=== PATIENT | female | born 1945 | race Caucasian/White ===

== ENCOUNTER → 2016-03-15 | Outpatient (CLI) | payer BC ==
[~2016-03-15] MED LIST: ALEN70TA2 PO; INSUINJ4 SC; INSUINJ8 SQ; LISI5TAB3 PO; LPT/40 PO; METF1000 PO; NAPR-1169 PO; OMEG10007 PO; PARO1TAB27 PO
[2016-03-15 12:53] LABS: ALT/SGPT 18 U/L (12-78); BLOOD UREA NITROGEN 16 mg/dl (7-18); BUN/CREATININE RATIO 15.7 (10-20); CARBON DIOXIDE 27 mmol/L (21-32); CHLORIDE 107 mmol/L (98-107); CHOLESTEROL 227 mg/dl (0-200); GLUCOSE 56 mg/dl (70-99); POTASSIUM 4.1 mmol/L (3.5-5.1); SODIUM 141 mmol/L (136-145); TRIGLYCERIDES 179 mg/dl (0-150); VERY LOW DENSITY LIPOPROT CALC 36 mg/dl
[2016-03-15 12:56] LABS: ALKALINE PHOSPHATASE 108 U/L (45-117); AST/SGOT 27 U/L (15-37); HDL CHOLESTEROL 45 mg/dl; LDL CHOLESTEROL CALCULATED 146 mg/dl
[2016-03-15 13:21] LABS: ESTIMATED AVERAGE GLUCOSE 174 mg/dl; HA1C FLAG Normal (Normal)
== END | disposition home or self-care (01) ==
LOC: C.LABPVFM 07:26
PROVIDERS: ATTEND Family Medicine
DX: E78.5 Hyperlipidemia, unspecified (principal); E11.40 Type 2 diabetes mellitus with diabetic neuropathy, unspecified; E11.65 Type 2 diabetes mellitus with hyperglycemia

== ENCOUNTER → 2016-07-06 | Outpatient (CLI) | payer BC ==
[2016-07-06 12:35] LABS: AST/SGOT 27 U/L (15-37); BLOOD UREA NITROGEN 19 mg/dl (7-18); BUN/CREATININE RATIO 19.7 (10-20); CALCIUM 9.3 mg/dl (8.5-10.1); CARBON DIOXIDE 29 mmol/L (21-32); CHLORIDE 106 mmol/L (98-107); CREATININE 0.99 mg/dl (0.60-1.20); GLUCOSE 83 mg/dl (70-99); POTASSIUM 4.4 mmol/L (3.5-5.1); SODIUM 140 mmol/L (136-145)
[2016-07-06 12:39] LABS: ALB/GLOB RATIO 1.1 (0.9-2); ALKALINE PHOSPHATASE 102 U/L (45-117); ALT/SGPT 19 U/L (12-78)
[2016-07-06 12:41] LABS: ESTIMATED AVERAGE GLUCOSE 180 mg/dl; HA1C FLAG Normal (Normal)
== END | disposition home or self-care (01) ==
LOC: C.LABPVFM 07:46
PROVIDERS: ATTEND Family Medicine
DX: F32.9 Major depressive disorder, single episode, unspecified (principal); E78.5 Hyperlipidemia, unspecified; I10 Essential (primary) hypertension; E11.40 Type 2 diabetes mellitus with diabetic neuropathy, unspecified

== ENCOUNTER → 2017-01-16 | Outpatient (CLI) | payer BC ==
[2017-01-16 13:20] LABS: AST/SGOT 27 U/L (15-37); BLOOD UREA NITROGEN 17 mg/dl (7-18); BUN/CREATININE RATIO 15.7 (10-20); CARBON DIOXIDE 28 mmol/L (21-32); CHLORIDE 105 mmol/L (98-107); GLUCOSE 103 mg/dl (70-99); POTASSIUM 4.4 mmol/L (3.5-5.1); SODIUM 139 mmol/L (136-145)
[2017-01-16 13:24] LABS: ALB/GLOB RATIO 0.9 (0.9-2); ALKALINE PHOSPHATASE 111 U/L (45-117); ALT/SGPT 21 U/L (12-78); CHOLESTEROL 242 mg/dl (0-200); CHOLESTEROL/HDL RATIO 6.1; HDL CHOLESTEROL 40 mg/dl; LDL CHOLESTEROL CALCULATED 158 mg/dl; TRIGLYCERIDES 220 mg/dl (0-150); VERY LOW DENSITY LIPOPROT CALC 44 mg/dl
[2017-01-16 13:53] LABS: ESTIMATED AVERAGE GLUCOSE 189 mg/dl; HA1C FLAG Normal (Normal)
== END | disposition home or self-care (01) ==
LOC: C.LABPVFM 08:31
PROVIDERS: ATTEND Family Medicine
DX: E78.5 Hyperlipidemia, unspecified (principal); I10 Essential (primary) hypertension; M81.0 Age-related osteoporosis without current pathological fracture; E11.65 Type 2 diabetes mellitus with hyperglycemia; Z12.11 Encounter for screening for malignant neoplasm of colon

== ENCOUNTER → 2017-01-23 | Outpatient (CLI) | payer BC ==
--- NOTE | 2017-01-24 07:43 | MAMMOGRAPHY REPORT ---
BILATERAL DIGITAL SCREENING MAMMOGRAM WITH CAD: 01/23/2017 CLINICAL HISTORY: Routine screening. Patient has no complaints. TECHNIQUE: Bilateral CC and MLO views were obtained. Current study was also evaluated with a Compute r Aided Detection (CAD) system. COMPARISON: Comparison is made to exams dated: 01/21/2016 mammogram, 03/07/2014 mammogram, 08/15/2012 ultrasound, 08/15/2012 mammogram, 12/07/2010 mammogram - [facility], and 07/02/2008. BREAST COMPOSITION: There are scattered areas of fibroglandular density in both breasts. FINDINGS: There are rim calcifications in the right breast. No suspicious mass, architectural disto rtion or cluster of microcalcifications is seen. IMPRESSION: ACR BI-RADS CATEGORY 2: BENIGN There is no mammographic evidence of malignancy. A 1 year screening mammogram is recommended. The pa tient will receive written notification of the results. Approximately 10% of breast cancers are not detected with mammography. A negative mammographic report should not delay biopsy if a clinically suggestive mass is present. Abbi Narayan M.D. ay/:01/23/2017 15:35:42 Converting Operator: Lety CHOUDHARY,R, M, [facility] letter sent: Normal 1/2 BI-RADS Code: ACR BI-RADS Category 2: Benign
== END | disposition home or self-care (01) ==
LOC: C.MAMM 10:09
PROVIDERS: ATTEND Family Medicine
DX: Z12.31 Encounter for screening mammogram for malignant neoplasm of breast (principal)

== ENCOUNTER → 2017-03-20 | Outpatient (CLI) | payer BC | END | disposition home or self-care (01) | LOC: C.MAMM 10:01 | PROVIDERS: ATTEND Nurse Practitioner | DX: M85.89 Other specified disorders of bone density and structure, multiple sites (principal) ==

== ENCOUNTER → 2017-07-17 | Outpatient (CLI) | payer BC ==
[2017-07-17 13:38] LABS: BLOOD UREA NITROGEN 17 mg/dl (7-18); CALCIUM 9.1 mg/dl (8.5-10.1); CARBON DIOXIDE 31 mmol/L (21-32); CHOLESTEROL 122 mg/dl (0-200); CREATININE 1.09 mg/dl (0.60-1.20); GLUCOSE 61 mg/dl (70-99); POTASSIUM 4.1 mmol/L (3.5-5.1); SODIUM 141 mmol/L (136-145)
[2017-07-17 13:41] LABS: LDL CHOLESTEROL CALCULATED 50 mg/dl
[2017-07-17 13:52] LABS: HEMOGLOBIN A1C 8.3 % (4.5-5.6)
== END | disposition home or self-care (01) ==
LOC: C.LABPVFM 08:25
PROVIDERS: ATTEND Nurse Practitioner
DX: E78.5 Hyperlipidemia, unspecified (principal); M81.0 Age-related osteoporosis without current pathological fracture; I10 Essential (primary) hypertension; E11.65 Type 2 diabetes mellitus with hyperglycemia

== ENCOUNTER 2019-05-02 15:11 | Inpatient (IN) ==
[2019-05-02] MEDS ORDERED: CEFEPIME 2,000 MG/20 ML VIAL IV STA (15:42)
[2019-05-02] MEDS ORDERED: SODIUM CHLORIDE 0.9% 1000ML 1,000 ML IV ONE (15:42)
[2019-05-02] MEDS ORDERED: ACETAMINOPHEN 500 MG TAB PO STA (16:02)
--- NOTE | 2019-05-02 16:02 | XRay Report ---
XR chest 1V portable CLINICAL HISTORY: SEPSIS dyspnea COMPARISON STUDY: 05/01/2019 FINDINGS: The bones soft tissues and hemidiaphragms are normal. The cardiomediastinal silhouette is n ormal. The lungs are clear. The pulmonary vasculature is normal. IMPRESSION: Negative chest. ACT 112: Negative or not required by law. The above report was generated using voice recognition software. It may contain grammatical, syntax or spelling errors. Electronically signed by: Jeffery Santos M.D. 05/02/2019 4:01 PM
[2019-05-02 16:26] LABS: Hematocrit (blood only) 28.9 % (37-47); Hemoglobin 9.1 g/dL (12.0-16.0); Mean Corpuscular Hemoglobin 26.3 pg (25-34); Mean Corpuscular Hgb Conc 31.5 g/dL (32-36); Mean Corpuscular Volume 83.5 fL (80-100); Mean Platelet Volume 9.9 fL (7.4-10.4); Platelet Count 200 K/uL (130-400); RDW Coefficient of Variation 20.6 % (11.5-14.5); RDW Standard Deviation 62.9 fL (36.4-46.3); Red Blood Count 3.46 M/uL (4.2-5.4); White Blood Count 9.52 K/uL (4.8-10.8)
[2019-05-02 16:37] LABS: INR 1.1 (0.9-1.1); Partial Thromboplastin Time 25.8 Seconds (21.0-31.0)
[2019-05-02 16:51] LABS: Alanine Aminotransferase 13 U/L (12-78); Albumin Level 3.3 gm/dl (3.4-5.0); Aspartate Aminotransferase 45 U/L (15-37); BUN Creatinine Ratio 12.1 (10-20); Blood Urea Nitrogen 18 mg/dl (7-18); Calcium 8.9 mg/dl (8.5-10.1); Carbon Dioxide 27 mmol/L (21-32); Chloride 103 mmol/L (98-107); Est GFR (African American) 39.4; Glucose 92 mg/dl (70-99); Magnesium 1.9 mg/dl (1.8-2.4); Potassium 3.8 mmol/L (3.5-5.1); Sodium 135 mmol/L (136-145)
[2019-05-02 16:53] LABS: Albumin Globulin Ratio 0.8 (0.9-2); Alkaline Phosphatase 88 U/L (45-117); Bilirubin,Total 0.8 mg/dl (0.2-1); Globulin 4.3 gm/dl (2.5-4.0); Total Protein 7.6 gm/dl (6.4-8.2)
[2019-05-02 16:59] LABS: Eosinophils # (auto) 0.01 K/uL (0-0.5); Eosinophils % (auto) 0.1 %; Immature Granulocytes # (auto) 0.03 K/uL (0.00-0.02); Immature Granulocytes % (auto) 0.3 %; Lymphocytes # (auto) 1.01 K/uL (1.2-3.4); Lymphocytes % (auto) 10.6 %; Monocytes # (auto) 0.88 K/uL (0.11-0.59); Monocytes % (auto) 9.2 %; Neutrophils # (auto) 7.59 K/uL (1.4-6.5); Neutrophils % (auto) 79.8 %; Polychromasia 1+
--- NOTE | 2019-05-02 17:32 | History & Physical Report ---
Date of Service May 02, 2019 Assessment & Plan (1) Gram-negative bacteremia: Admit med surg Blood cultures growing gram negative bacteremia, likely E. coli from UTI, await sensitivities Will treat with ceftriaxone 2g Will give 1 further liter of fluid, given 1L in ED (2) E-coli UTI: E.coli growing in culture CT scan 05/01 showed possible pyelonephritis Treatment as above (3) Depression: Continue home paroxetine (4) Diabetic neuropathy: Continue home gabapentin (5) Dyslipidemia: Continue home statin (6) Hypertension: continue home lisinopril (7) Diabetes: Type II with neuropathy Hold home metformin and dulaglutide Continue home gabapentin Consult glycemic pharmacist (8) CKD (chronic kidney disease), stage III: Avoid nephrotoxins where possible (9) DVT prophylaxis: SCDs History of Present Illness Ms. Barrios presents for gram negative bacteremia. She had visited the ED yesterda y and upon having positive cultures she was recalled to the ED for admission. She has been having lower abdominal pain, dysuria, aches and chills. She denies any flank pain,nausea or vomiting or diarrhea, afebrile, no chest pain or sob. She does a have a cough that is non-productive as she was recently diagnosed and treated for bronchitis. Pmhx: DMII, hld, OA, hypertension Social: , retired adjunct history instructor, non smoker, non drinker Family: fatehr of an [place] in his 60s, mother of cancer Primary Care Provider: SHELTON Perkins Allergies Allergy/AdvReac Type Severity Reaction Status Date / Time aspirin Allergy Mild HIVES Verified 04/15/19 13:29 caffeine Allergy Mild HIVES Verified 04/15/19 13:29 yellow dye Allergy Mild HIVES Verified 04/15/19 13:29 red (food color) Allergy Unknown Verified 04/15/19 13:29 ORANGE DYE Allergy Mild HIVES Uncoded 04/15/19 13:29 Home Medications Home Medications Medication Instructions Recorded Confirmed Type calcium carbonate 600 mg calcium 600 mg PO DAILY #30 tab 08/13/18 05/01/19 Rx (1,500 mg) tablet cholecalciferol (vitamin D3) 50 2,000 units PO BID #30 tab 08/13/18 05/01/19 Rx mcg (2,000 unit) tablet insulin glargine 100 unit/mL See Rx Instructions SQ DAILY #30 ml 08/13/18 05/01/19 Rx subcutaneous solution paroxetine HCl 20 mg tablet 20 mg PO DAILY #30 tab 08/13/18 05/01/19 Rx atorvastatin 80 mg tablet 80 mg PO HS #90 tab 11/13/18 05/01/19 Rx lisinopril 20 mg tablet 20 mg PO DAILY #30 tab 12/03/18 05/01/19 Rx metformin 1,000 mg tablet See Rx Instructions .ROUTE 12/07/18 05/01/19 Rx .COMPLEX #60 tablet blood sugar diagnostic See Rx Instructions .ROUTE 12/25/18 04/15/19 Rx .COMPLEX #100 strip insulin syringe-needle U-100 0.5 See Rx Instructions .ROUTE 02/12/19 04/15/19 Rx mL 31 gauge x 5/16" .COMPLEX #100 unspecified alendronate 70 mg tablet See Rx Instructions .ROUTE 02/28/19 05/01/19 Rx .COMPLEX #4 tablet insulin aspart U-100 100 unit/mL See Rx Instructions .ROUTE 02/28/19 05/01/19 Rx subcutaneous solution .COMPLEX #10 milliliter dulaglutide 0.75 mg/0.5 mL See Rx Instructions .ROUTE 04/08/19 05/01/19 Rx subcutaneous pen injector .COMPLEX #2 milliliter benzonatate 100 mg capsule 100 mg PO TID PRN #20 cap 04/15/19 05/01/19 Rx gabapentin 100 mg capsule See Rx Instructions .ROUTE 04/22/19 05/01/19 Rx .COMPLEX #60 capsule cefdinir 300 mg PO BID 10 Days #20 cap 05/02/19 Rx Past Med/Surg History Medical History (Updated 05/02/19 @ 17:44 by SHELTON Nagel) Bronchitis (Acute) Diabetes (Chronic) Dyslipidemia (Chronic) Hypertension (Chronic) Osteoporosis (Chronic) Surgical History History of appendectomy (Resolved) History of bladder repair surgery (Resolved) History of hysterectomy (Resolved) History of shoulder surgery (Resolved) Family History Father Myocardial infarction Denies family history of Ovarian cancer Prostate cancer Breast cancer Colorectal cancer Social History Preferred Language: Burkinan marital status: Single Current Living Situation: Family current occupational status: retired Feels Safe at Home: Yes Smoking Status: Never smoker Hx Substance Use: No caffeine: Yes Dental Care, Regularly: No Seatbelt Use: always Sunscreen Use: Yes Review of Systems Review of Systems: All systems reviewed & are unremarkable except as noted in HPI & below Physical Exam Physical Exam: General: no distress Eyes: normal inspection, PERLL Respiratory: chest non tender, clear to auscultation, normal breath sounds, no respiratory distress, no accessory muscle use Cardiac: regular rate and rhythm, no rub or gallop, no murmur, no edema, no jvd GI/: active bowel sounds, no abd pain or tenderness, soft, non distended Extremities: normal range of motion, normal strength, non tender Neuro/Psych: alert and oriented x 3, normal mood and affect Skin: normal color, dry Results & Data Vital Signs (Past 12 Hours) Vital Signs Temp Pulse Resp BP Pulse Ox 05/02/19 17:04 72 20 94 05/02/19 17:00 72 20 94 05/02/19 16:45 74 22 94 05/02/19 16:30 79 22 115/80 97 05/02/19 16:25 79 24 98 05/02/19 16:22 76 21 145/75 H 100 05/02/19 15:18 37.7 C H 102 H 18 121/76 92 Code Status & VTE Plan Code Status full code VTE Prophylaxis Plan VTE Prophylaxis will be ordered: Yes PG Care Time/CCT Total # of Minutes Spent Total Time Spent with Patient: Total time spent is greater than 50% in coordination of care (as documented) at patient's floor/unit and/or counseling patient: Coding Level of Care Code 67650 Initial Inpt Care Lvl 3 Diagnoses Gram-negative bacteremia R78.81 E-coli UTI N39.0; B96.20 Depression F32.9 Diabetic neuropathy E11.40 Dyslipidemia E78.5 Hypertension I10 Diabetes E11.9 CKD (chronic kidney disease), stage III N18.3 DVT prophylaxis Z29.9
--- NOTE | 2019-05-02 19:19 | Emergency Department Note ---
Entered by Rogers Gutierrez acting as a scribe for ED Provider Note CHIEF COMPLAINT: Urinary Symptoms HISTORY OF PRESENT ILLNESS: The patient is a 73 year old female who presents to the Emergency Room with complaints of intermittent urinary symptoms starting several days ago. The patient states she has been having pain with urination. She states she has not had a UTI in years. She states she has been having back pain. She notes she was in the ED yesterday and was sent home with antibiotics. She states she was called today and was instructed to go back to the ED to get admitted because she had a blood infection. The patient denies taking Advil or Tylenol. She denies having allergies to any antibiotics. The patient's daughter states the patient had a blood infection years ago and was hospitalized at that time. Pt denies LOC, headache, fevers, chills, diaphoresis, visual changes, neck pain, chest pain, breathing difficulties, nausea, vomiting, abdominal pain, melena, hematochezia, numbness, weakness, lymphadenopathy, rash, or other complaints. REVIEW OF SYSTEMS: See HPI for pertinent positives and negatives. A total of ten systems were reviewed and were otherwise negative. PMHx/PSHx: Diabetes, depression, osteoporosis, dyslipidemia, HTN, hx of appendectomy, hx of bladder repair surgery, hx of hysterectomy, hx of shoulder surgery SOCIAL HISTORY: Patient lives at home. PHYSICAL EXAM: GENERAL: Awake, alert, tired-appearing, in no distress HENT: Normocephalic, atraumatic. Oropharynx unremarkable. EYES: PERRL. Normal conjunctiva. Sclera non-icteric. NECK: Inspection normal. Non-tender. Supple. No nuchal rigidity. FROM. No masses. RESPIRATORY: Clear to auscultation. No wheezes. No rales. Normal respiratory effort. CARDIAC: Borderline tachycardic rate. Normal rhythm. No murmurs. No rubs. Extremities warm and well perfused. Pulses equal. No JVD. GI: Soft, non-distended. No tenderness to palpation. No rebound or guarding. No masses. RECTAL: Deferred. MUSCULOSKELETAL: Atraumatic. Chest examination reveals no tenderness. The back is symmetrical on inspection without obvious abnormality. There is no CVA tenderness to palpation. No joint edema. LOWER EXTREMITIES: Calves are equal size bilaterally and non-tender. No edema. No discoloration. NEURO: Normal sensorium. No sensory or motor deficits noted. SKIN: No rash or jaundice noted. Warm to the touch. EMERGENCY DEPARTMENT COURSE: 1558: Past medical records reviewed. The patient was evaluated in room D9, and a complete history and physical examination were performed. 1612: I discussed the patient's case with Dr. Eva Smiley - [facility] Hospitalist. She will evaluate the patient for further management MEDICAL DECISION MAKING: Prior records/ancillary studies reviewed. He has gram-negative bacteria in the bloodstream as well as a E. coli UTI. Triage Nursing notes reviewed and agree them. Additional history obtained from her treating physician from last night, Dr. Alonzo. We discussed her work-up and treatment. He noted her positive culture results. The patient's history was concerning for fever, bacteremia, and UTI Differential diagnosis: Etiologies such as otitis, pharyngitis, pneumonia, influenza,meningitis, urinary tract infection, sepsis, bacteremia, viral syndrome, as well as others were entertained. Physical examination: As above ER treatment provided: IV cefepime Oral Tylenol IV normal saline On reassessment the patient felt better. Diagnostics interpreted by me: ECG: Sinus rhythm without dysrhythmia. The labs revealed an unremarkable CBC except for anemia which is stable. Chemistry panel unremarkable. New blood cultures pending. Imaging studies: Chest x-ray negative for acute process. Consultation: A consultation was placed with any hospitalist Dr. Smiley. The case was discussed and diagnostics were reviewed. The patient was evaluated in the ER for further treatment. IMPRESSION: Gram negative bacteremia, E. Coli UTI, fever PLAN: Admitted The scribe's documentation has been prepared under my direction and personally reviewed by me in its entirety. I confirm that the note above accurately reflects all work, treatment, procedures, and medical decision making performed by me. Impression & Plan Gram-negative bacteremia, E-coli UTI, Fever Past Med/Surg History Family History Father Myocardial infarction Denies family history of Ovarian cancer Prostate cancer Breast cancer Colorectal cancer Social History Preferred Language: Irish marital status: Single Current Living Situation: Family current occupational status: retired Feels Safe at Home: Yes Smoking Status: Never smoker Hx Substance Use: No caffeine: Yes Dental Care, Regularly: No Seatbelt Use: always Sunscreen Use: Yes Results & Data Vital Signs Vital Signs - 24 hr 05/02/19 15:18 05/02/19 16:22 05/02/19 16:25 Temperature 37.7 C H Temperature Source Oral Pulse Rate 102 H 76 79 Pulse Rate from SpO2 Sensor 78 79 Respiratory Rate 18 21 24 Blood Pressure 121/76 145/75 H Blood Pressure Mean 91 103 Pulse Oximetry 92 100 98 Oxygen Delivery Method Room Air Sepsis Recent Fever Within 48 Hours No Sepsis New/Unexplained Change in Mental Status No Sepsis Action Taken by Nursing No Action Required 05/02/19 16:30 05/02/19 16:45 05/02/19 17:00 Temperature Temperature Source Pulse Rate 79 74 72 Pulse Rate from SpO2 Sensor 79 72 71 Respiratory Rate 22 22 20 Blood Pressure 115/80 Blood Pressure Mean 85 Pulse Oximetry 97 94 94 Oxygen Delivery Method Sepsis Recent Fever Within 48 Hours Sepsis New/Unexplained Change in Mental Status Sepsis Action Taken by Nursing 05/02/19 17:04 05/02/19 17:15 05/02/19 17:30 Temperature Temperature Source Pulse Rate 72 72 72 Pulse Rate from SpO2 Sensor 71 71 Respiratory Rate 20 24 22 Blood Pressure 110/57 L Blood Pressure Mean 74 Pulse Oximetry 94 97 96 Oxygen Delivery Method Room Air Sepsis Recent Fever Within 48 Hours Sepsis New/Unexplained Change in Mental Status Sepsis Action Taken by Nursing 05/02/19 17:45 05/02/19 18:00 05/02/19 18:15 Temperature Temperature Source Pulse Rate 72 70 77 Pulse Rate from SpO2 Sensor 74 69 Respiratory Rate 19 20 23 Blood Pressure 122/67 Blood Pressure Mean 89 Pulse Oximetry 94 95 Oxygen Delivery Method Sepsis Recent Fever Within 48 Hours Sepsis New/Unexplained Change in Mental Status Sepsis Action Taken by Nursing 05/02/19 18:30 05/02/19 18:45 Temperature Temperature Source Pulse Rate 67 68 Pulse Rate from SpO2 Sensor Respiratory Rate 23 26 H Blood Pressure 130/81 Blood Pressure Mean 102 Pulse Oximetry Oxygen Delivery Method Sepsis Recent Fever Within 48 Hours Sepsis New/Unexplained Change in Mental Status Sepsis Action Taken by Half-Way Medications Current Medication List: was personally reviewed by me Laboratory Data Result diagrams: 05/02/19 16:16 05/02/19 16:16 Lab Results 05/02/19 05/02/19 05/02/19 Range/Units 16:16 16:16 16:16 WBC 9.52 (4.8-10.8) K/uL RBC 3.46 L (4.2-5.4) M/uL Hgb 9.1 L (12.0-16.0) g/dL Hct 28.9 L (37-47) % MCV 83.5 (80-100) fL MCH 26.3 (25-34) pg MCHC 31.5 L (32-36) g/dL RDW Std Deviation 62.9 H (36.4-46.3) fL RDW Coeff of Pauly 20.6 H (11.5-14.5) % Plt Count 200 (130-400) K/uL MPV 9.9 (7.4-10.4) fL Immature Gran % (Auto) 0.3 % Neut % (Auto) 79.8 % Lymph % (Auto) 10.6 % Hancock % (Auto) 9.2 % Eos % (Auto) 0.1 % Baso % (Auto) 0.0 % Immature Gran # (Auto) 0.03 H (0.00-0.02) K/uL Neut # (Auto) 7.59 H (1.4-6.5) K/uL Lymph # (Auto) 1.01 L (1.2-3.4) K/uL Hancock # (Auto) 0.88 H (0.11-0.59) K/uL Eos # (Auto) 0.01 (0-0.5) K/uL Baso # (Auto) 0.00 (0-0.2) K/uL Polychromasia 1+ PT 11.0 (9.0-12.0) Seconds INR 1.1 (0.9-1.1) APTT 25.8 (21.0-31.0) Seconds PTT Ratio 1.0 Sodium 135 L (136-145) mmol/L Potassium 3.8 (3.5-5.1) mmol/L Chloride 103 (98-107) mmol/L Carbon Dioxide 27 (21-32) mmol/L Anion Gap 5.0 (3-11) BUN 18 (7-18) mg/dl Creatinine 1.49 H (0.6-1.2) mg/dl Est Cr Clr Drug Dosing Not Reportable Est GFR ( Amer) 39.4 Est GFR (Non-Af Amer) 34.0 BUN/Creatinine Ratio 12.1 (10-20) Glucose 92 (70-99) mg/dl Lactate (0.4-2.0) mmol/L Calcium 8.9 (8.5-10.1) mg/dl Magnesium 1.9 (1.8-2.4) mg/dl Total Bilirubin 0.8 (0.2-1) mg/dl AST 45 H (15-37) U/L ALT 13 (12-78) U/L Alkaline Phosphatase 88 (45-117) U/L Total Protein 7.6 (6.4-8.2) gm/dl Albumin 3.3 L (3.4-5.0) gm/dl Globulin 4.3 H (2.5-4.0) gm/dl Albumin/Globulin Ratio 0.8 L (0.9-2) // Range/Units 16:16 WBC (4.8-10.8) K/uL RBC (4.2-5.4) M/uL Hgb (12.0-16.0) g/dL Hct (37-47) % MCV (80-100) fL MCH (25-34) pg MCHC (32-36) g/dL RDW Std Deviation (36.4-46.3) fL RDW Coeff of Pauly (11.5-14.5) % Plt Count (130-400) K/uL MPV (7.4-10.4) fL Immature Gran % (Auto) % Neut % (Auto) % Lymph % (Auto) % Hancock % (Auto) % Eos % (Auto) % Baso % (Auto) % Immature Gran # (Auto) (0.00-0.02) K/uL Neut # (Auto) (1.4-6.5) K/uL Lymph # (Auto) (1.2-3.4) K/uL Hancock # (Auto) (0.11-0.59) K/uL Eos # (Auto) (0-0.5) K/uL Baso # (Auto) (0-0.2) K/uL Polychromasia PT (9.0-12.0) Seconds INR (0.9-1.1) APTT (21.0-31.0) Seconds PTT Ratio Sodium (136-145) mmol/L Potassium (3.5-5.1) mmol/L Chloride (98-107) mmol/L Carbon Dioxide (21-32) mmol/L Anion Gap (3-11) BUN (7-18) mg/dl Creatinine (0.6-1.2) mg/dl Est Cr Clr Drug Dosing Est GFR ( Amer) Est GFR (Non-Af Amer) BUN/Creatinine Ratio (10-20) Glucose (70-99) mg/dl Lactate 1.8 (0.4-2.0) mmol/L Calcium (8.5-10.1) mg/dl Magnesium (1.8-2.4) mg/dl Total Bilirubin (0.2-1) mg/dl AST (15-37) U/L ALT (12-78) U/L Alkaline Phosphatase (45-117) U/L Total Protein (6.4-8.2) gm/dl Albumin (3.4-5.0) gm/dl Globulin (2.5-4.0) gm/dl Albumin/Globulin Ratio (0.9-2) Administered Medications Discontinued Medications Acetaminophen (Tylenol) 1,000 mg PO NOW STA Stop: 05/02/19 16:03 Last Admin: 05/02/19 16:13 Dose: 1,000 mg Documented by: [id number] Sodium Chloride (Nss 1000ml) 1,000 mls @ 999 mls/hr IV .Q1H1M ONE Stop: 05/02/19 16:42 Last Infusion: 05/02/19 17:14 Dose: 0 mls/hr Documented by: [id number] Admin: 05/02/19 16:13 Dose: 999 mls/hr Documented by: [id number] Cefepime HCl (Maxipime) 2,000 mg in 20 mls @ 5 mls/min IV NOW STA; Protocol Stop: 05/02/19 15:45 Last Admin: 05/02/19 16:13 Dose: 5 mls/min Documented by: [id number] Imaging Data Radiologist's Impression: Radiology results as stated below per my review and the radiologist's interpretation: XR chest 1V portable CLINICAL HISTORY: SEPSIS dyspnea COMPARISON STUDY: 05/01/2019 FINDINGS: The bones soft tissues and hemidiaphragms are normal. The cardiomediastinal silhouette is normal. The lungs are clear. The pulmonary vasculature is normal. IMPRESSION: Negative chest. ACT 112: Negative or not required by law. The above report was generated using voice recognition software. It may contain grammatical, syntax or spelling errors. Electronically signed by: Jeffery Santos M.D. 05/02/2019 4:01 PM ECG Data Attestation: I personally reviewed and interpreted this ECG as follows: Indication: + weakness Rate (beats per minute): 76 Rhythm: normal sinus ECG Intervals/blocks: + Right Bundle branch block and + Normal QRS ECG ST segments: no ST depression and no ST elevation ECG Findings: no PACs and no PVCs Blood Pressure Blood Pressure Findings: Elevated blood pressure Blood Pressure Disposition: further management by hospitalist Discharge Plan Visit Data Chief Complaint: Urinary Symptoms Stated Complaint: UTI, CALLED BACK FROM ER ED Provider: Armand Luna Discharge Problem: Gram-negative bacteremia, E-coli UTI, Fever Patient Disposition: Being Evaluated by Hospitalist Forms Stand Alone Forms: My [employer] Prescriptions Prescriptions: No Action Lantus U-100 Insulin 100 unit/mL solution See Rx Instructions SQ DAILY Qty: 30 RF: 5 calcium carbonate [Calcium 600] 600 mg calcium (1,500 mg) tablet 600 mg PO DAILY Qty: 30 RF: 0 cholecalciferol (vitamin D3) 2,000 unit tablet 2,000 units PO BID Qty: 30 RF: 0 paroxetine HCl 20 mg tablet 20 mg PO DAILY Qty: 30 RF: 2 metformin 1,000 mg tablet See Rx Instructions .ROUTE .COMPLEX Qty: 60 RF: 5 blood sugar diagnostic [OneTouch Ultra Blue Test Strip] strip See Rx Instructions .ROUTE .COMPLEX Qty: 100 RF: 4 insulin syringe-needle U-100 [Easy Touch Insulin Syringe] 0.5 mL 31 gauge x 5/16" syringe See Rx Instructions .ROUTE .COMPLEX Qty: 100 RF: 1 insulin aspart U-100 [Novolog U-100 Insulin aspart] 100 unit/mL solution See Rx Instructions .ROUTE .COMPLEX Qty: 10 RF: 5 alendronate 70 mg tablet See Rx Instructions .ROUTE .COMPLEX Qty: 4 RF: 11 dulaglutide [Trulicity] 0.75 mg/0.5 mL pen injector See Rx Instructions .ROUTE .COMPLEX Qty: 2 RF: 7 gabapentin 100 mg capsule See Rx Instructions .ROUTE .COMPLEX Qty: 60 RF: 5 atorvastatin 80 mg tablet 80 mg PO HS Qty: 90 RF: 3 lisinopril 20 mg tablet 20 mg PO DAILY Qty: 30 RF: 5 benzonatate [Tessalon Perles] 100 mg capsule 100 mg PO TID PRN (Reason: cough) Qty: 20 RF: 0 cefdinir 300 mg capsule 300 mg PO BID 10 Days Qty: 20 RF: 0 Referrals Referrals: Kim Handy CRNP [Primary Care Provider] - Discharge Problem: Fever Qualifiers: Fever type: unspecified Qualified Code(s): R50.9 - Fever, unspecified The scribe's documentation has been prepared under my direction and personally reviewed by me in its entirety. I confirm that the note above accurately reflects all work, treatment, procedures, and medical decision making performed by me.
[2019-05-02] MEDS ORDERED: BENZONATATE 100 MG CAPSULE PO PRN (20:38)
[2019-05-02] MEDS ORDERED: SODIUM CHLORIDE 0.9% 1000ML 1,000 ML IV SCH (20:38)
[2019-05-02] MEDS ORDERED: PHARMACY GLYCEMIC MGMT CONSULT PRN (21:05)
[2019-05-02] MEDS ORDERED: DEXTROSE 50% 50 ML SYRINGE IV PRN (21:15)
[2019-05-02] MEDS ORDERED: GLUCOSE 40% GEL 15 GM TUBE PO PRN (21:15)
[2019-05-02] MEDS ORDERED: GLUCOSE 10 TABS/TUBE PO PRN (21:15)
[2019-05-02] MEDS ORDERED: CARBOHYDRATES FOR HYPOGLYCEMIA PO PRN (21:15)
[2019-05-02] MEDS ORDERED: GLUCAGON FOR INJ 1 MG VIAL IM PRN (21:15)
[2019-05-02] MEDS: CHOLECALCIFEROL 1,000 UNITS 25 MCG TAB PO SCH (21:31)
[2019-05-02] MEDS: GABAPENTIN 100 MG CAP PO SCH (21:31)
[2019-05-02] MEDS: ATORVASTATIN 40 MG TAB PO SCH (21:31)
[2019-05-02] MEDS: cefTRIAXone SODIUM 2,000 MG in DEXTROSE 5% 50 ML IV SCH (21:44)
[2019-05-03 08:45] LABS: Eosinophils # (auto) 0.01 K/uL (0-0.5); Eosinophils % (auto) 0.2 %; Hematocrit (blood only) 24.9 % (37-47); Hemoglobin 7.9 g/dL (12.0-16.0); Immature Granulocytes # (auto) 0.02 K/uL (0.00-0.02); Immature Granulocytes % (auto) 0.3 %; Lymphocytes # (auto) 0.56 K/uL (1.2-3.4); Lymphocytes % (auto) 8.7 %; Mean Corpuscular Hemoglobin 26.7 pg (25-34); Mean Corpuscular Hgb Conc 31.7 g/dL (32-36); Mean Corpuscular Volume 84.1 fL (80-100); Monocytes # (auto) 0.56 K/uL (0.11-0.59); Monocytes % (auto) 8.7 %; Neutrophils # (auto) 5.28 K/uL (1.4-6.5); Neutrophils % (auto) 82.1 %; Platelet Count 178 K/uL (130-400); RDW Coefficient of Variation 20.3 % (11.5-14.5); RDW Standard Deviation 62.4 fL (36.4-46.3); Red Blood Count 2.96 M/uL (4.2-5.4); White Blood Count 6.43 K/uL (4.8-10.8)
[2019-05-03] MEDS ORDERED: LANTUS PER UNIT CHARGE SQ SCH ×2 (09:00→12:30)
[2019-05-03 09:12] LABS: BUN Creatinine Ratio 14.2 (10-20); Calcium 8.3 mg/dl (8.5-10.1); Creatinine Clr Calc Pharmacy 39.4 ml/min; Est GFR (African American) 48.7
[2019-05-03] MEDS: lisinopriL 20 MG TAB PO SCH (09:17)
[2019-05-03] MEDS: CHOLECALCIFEROL 1,000 UNITS 25 MCG TAB PO SCH ×2 (09:17→21:30)
[2019-05-03] MEDS: PARoxetine HCl 20 MG TAB PO SCH (09:18)
[2019-05-03] MEDS: CALCIUM 600MG + VIT D 400 IU TAB PO SCH (09:18)
[2019-05-03] MEDS: INSULIN ASPART 100 UNITS/ML 3 ML PEN SC SCH ×4 (09:23→21:31)
[2019-05-03 09:36] LABS: Polychromasia 1+
--- NOTE | 2019-05-03 09:39 | Pharmacy Report ---
Glycemic Control Consultation - Date of Service May 03, 2019 - Scope Scope: Glycemic Pharmacist consulted by Lisette Piedra on 05/02 for glycemic control and to write orders per [facility] inpatient glycemic control protocol - Objective Weight: 92.1 kg Accuchecks BSG (last 24hrs): 05/02/19 05/02/19 05/03/19 16:16 20:48 08:03 Glucose 92 POC Glucose 108 H 106 H 05/03/19 08:23 Glucose 95 POC Glucose Laboratory Data (last 24hrs): 05/02/19 05/03/19 16:16 08:23 Potassium 3.8 4.0 Carbon Dioxide 27 23 Anion Gap 5.0 6.0 Creatinine 1.49 H 1.25 H Est Cr Clr Drug Dosing Not Reportable 39.4 - Recent Pertinent Medications Outpatient Anti-diabetic Regimen: * Lantus 40 units daily, Novolog 10 units daily, Trulicity weekly, metformin 1000 mg bid * A1c = 7.2 % 04/2018 Risk Factors for Insulin Resistance: * Infection: bacteremia * Diet: T2DM - Assessment & Plan Assessment & Plan: ASSESSMENT: * 73 year old admitted with bacteremia/UTI. History of type 2 diabetes. Confirmed home doses of insulin with patient. * Last Lantus dose of 05/02 AM of 40 units and Novolog 10 units - BSGs yesterday 92-108 * Fasting BSG this morning is 95 mg/dL - will ensure patient eating and then start Lantus for lunch time * Add scale for Lantus BID at lunch PLAN FOR INPATIENT GLYCEMIC CONTROL: * Basal insulin * Lantus BID based upon BSG scale * For BSG less than 160 - give 10 units, 15 units for 160 or greater * Bolus insulin * NovoLog per scale ACHS or Q6hrs while NPO * Goal Range: Low 110 mg/dL - High 140 mg/dL * Correction Factor: 25 mg/dL/unit * Nutritional / Prandial insulin per carb ratio of 1 unit per 8 grams CHO consumed * Please note that the plan above was derived based on current level of insulin resistance and hospital stress. These recommendations are appropriate for inpatient admission only. Plan of care upon discharge will need to be reassessed to avoid potential outpatient hypo/hyperglycemia. Thank you.
[2019-05-03] MEDS: INSULIN GLARGINE SOLOSTAR 100 UNITS/ML 3 ML PEN SQ SCH ×2 (13:19→21:33)
[2019-05-03] MEDS ORDERED: ACETAMINOPHEN 325 MG TAB PO PRN (15:14)
--- NOTE | 2019-05-03 15:23 | Hospitalist Progress Note ---
Date of Service May 03, 2019 Assessment & Plan (1) Gram-negative bacteremia: Blood cultures growing gram negative bacteremia, likely pansensitive E. coli from UTI Continue ceftriaxone 2g IVF discontinued (2) E-coli UTI: Pansensitive E.coli growing in culture CT scan 05/01 showed possible pyelonephritis Treatment as above (3) Depression: Continue home paroxetine (4) Diabetic neuropathy: Continue home gabapentin (5) Dyslipidemia: Continue home statin (6) Hypertension: continue home lisinopril (7) Diabetes: Type II with neuropathy Hold home metformin and dulaglutide Continue home gabapentin Consult glycemic pharmacist (8) CKD (chronic kidney disease), stage III: Avoid nephrotoxins where possible (9) Anemia: No obvious s/s of bleeding Iron studies, B12, Folate am recheck cbc am (10) DVT prophylaxis: SCDs Admission and Anticipated Discharge Date Admission Date: May 02, 2019 Supervising Physician Co-Signing Physician Notes I supervised Lisette Piedra NP on this patient's care. I examined the patient today independently of her. I discussed the plan of care with her with the plan being as written in her note except for any following changes/exceptions: None. Doing well at present. No fevers/chills. No dysuria. Comfortable in bed. Will wait speciation and discharge on oral abx tomorrow. Subjective Ms. Barrios continues to be febrile. She has less aches and chills and overall feels better ROS Constitutional: no chills, aches, sweats Respiratory: no sob,cough, sputum, or wheezing Cardiac: no chest pain, palpitations, edema, orthopnea or lightheadedness GI: no abdominal pain, nausea, vomiting, diarrhea or constipation : no dysuria or hesitancy Extremities: no joint pain or weakness Skin: no rash All other systems reviewed and negative Physical Exam Physical Exam: General: no distress Eyes: normal inspection, PERLL Respiratory: chest non tender, clear to auscultation, normal breath sounds, no respiratory distress, no accessory muscle use Cardiac: regular rate and rhythm, no rub or gallop, no murmur, no edema, no jvd GI/: active bowel sounds, no abd pain or tenderness, soft, non distended Extremities: normal range of motion, normal strength, non tender Neuro/Psych: alert and oriented x 3, normal mood and affect Skin: normal color, dry Results & Data ([facility]) Vital Signs (Past 12 Hours) Vital Signs Temp Pulse Resp BP BP Pulse Ox 05/03/19 15:09 38.5 C H 76 16 141/61 H 96 05/03/19 07:30 37.8 C H 96 H 16 126/60 96 PG Care Time/CCT Total # of Minutes Spent Total Time Spent with Patient: Total time spent is greater than 50% in coordination of care (as documented) at patient's floor/unit and/or counseling patient: Coding Level of Care Code 72874 Subseq Hosp Care Lvl 2 Diagnoses Gram-negative bacteremia R78.81 E-coli UTI N39.0; B96.20 Depression F32.9 Diabetic neuropathy E11.40 Dyslipidemia E78.5 Hypertension I10 Diabetes E11.9 CKD (chronic kidney disease), stage III N18.3 Anemia D64.9 DVT prophylaxis Z29.9
--- NOTE | 2019-05-03 20:53 | Electrocardiogram Report ---
Test Reason : Blood Pressure : / mmHG Vent. Rate : 076 BPM Atrial Rate : 076 BPM P-R Int : 152 ms QRS Dur : 122 ms QT Int : 398 ms P-R-T Axes : 057 029 029 degrees QTc Int : 447 ms Normal sinus rhythm Right bundle branch block Abnormal ECG When compared with ECG of 30-JAN-2013 13:35, No significant change was found Confirmed by Sagar Keith ([id number]) on 05/03/2019 8:53:10 PM Referred By: REFERRED SELF Confirmed By:Sagar Keith
[2019-05-03] MEDS: GABAPENTIN 100 MG CAP PO SCH (21:30)
[2019-05-03] MEDS: ATORVASTATIN 40 MG TAB PO SCH (21:30)
[2019-05-03] MEDS: cefTRIAXone SODIUM 2,000 MG in DEXTROSE 5% 50 ML IV SCH (22:30)
[2019-05-04 06:12] LABS: Hematocrit (blood only) 26.4 % (37-47); Hemoglobin 8.3 g/dL (12.0-16.0); Mean Corpuscular Hemoglobin 26.3 pg (25-34); Mean Corpuscular Hgb Conc 31.4 g/dL (32-36); Mean Corpuscular Volume 83.5 fL (80-100); Nucleated RBC # (auto) 0.03 K/uL (0-0); Nucleated RBC % (auto) 0.7 %; Platelet Count 203 K/uL (130-400); RDW Coefficient of Variation 20.4 % (11.5-14.5); RDW Standard Deviation 62.5 fL (36.4-46.3); Red Blood Count 3.16 M/uL (4.2-5.4)
[2019-05-04 06:45] LABS: BUN Creatinine Ratio 15.1 (10-20); Calcium 8.4 mg/dl (8.5-10.1); Creatinine Clr Calc Pharmacy 44.3 ml/min; Est GFR (African American) 56.3; Est GFR (Non-African American) 48.5; Estimated Average Glucose 160 mg/dl; Hemoglobin A1C 7.2 % (4.5-5.6); Potassium 4.1 mmol/L (3.5-5.1)
[2019-05-04 06:49] LABS: Ferritin 67.4 ng/ml (8-388)
[2019-05-04] MEDS ORDERED: FERROUS SULFATE 325 MG TAB PO SCH (09:00)
[2019-05-04 09:21] LABS: Folate (Folic Acid) 9.91 ng/ml (>5.38)
[2019-05-04] MEDS: CHOLECALCIFEROL 1,000 UNITS 25 MCG TAB PO SCH (09:23)
[2019-05-04] MEDS: PARoxetine HCl 20 MG TAB PO SCH (09:23)
[2019-05-04] MEDS: CALCIUM 600MG + VIT D 400 IU TAB PO SCH (09:24)
[2019-05-04] MEDS: lisinopriL 20 MG TAB PO SCH (09:24)
[2019-05-04] MEDS: INSULIN ASPART 100 UNITS/ML 3 ML PEN SC SCH ×2 (09:25→13:16)
[2019-05-04] MEDS ORDERED: IRON SUCROSE 100 MG in 0.9 % SODIUM CHLORIDE 100 ML IV SCH (10:00)
--- NOTE | 2019-05-04 10:14 | Pharmacy Report ---
Glycemic Control Progress Note - Date of Service May 04, 2019 - Scope Glycemic Pharmacist consulted for glycemic control to write orders per [facility] inpatient glycemic control protocol. - Objective Accuchecks BSG(last 24 hours):: 05/03/19 05/03/19 05/03/19 12:07 17:14 21:00 Glucose POC Glucose 150 H 174 H 177 H 05/04/19 05:44 Glucose 108 H POC Glucose HbA1c:: Hemoglobin A1c 7.2 % (4.5-5.6) H 05/04/19 05:44 - Recent Pertinent Medications The patient is currently receiving: * Basal insulin: Lantus 15 units every 12 hours * Correctional Insulin: Novolog Correction per scale ACHS Goal Range: Low 110 mg/dL - High 140 mg/dL Correction Factor: 25 mg/dL/unit * Prandial insulin: Per carb ratio of 1 unit per 8 grams CHO consumed - Outpatient Anti-Diabetic Meds Lantus 40 units qAM Novolog 10 units daily Trulicity metformin 1 gm PO BID - Assessment & Plan ASSESSMENT: * See progress note from 05/03/2019 for more background info, in short: * Pt receiving SQ basal bolus insulin regimen for hyperglycemia secondary to baseline DM (outpatient regimen on hold) and infection (Gram negative bacteremia on Rocephin) * Patient is currently receiving an average of 52 units of insulin per day * 30 units of basal insulin * 22 units of prandial/correctional insulin * BSGs ranging 106 - 174 mg/dl over the past 24hrs * Changes needed to insulin regimen: * AM Fasting BSG = 108 mg/dl. This is in goal range for patient based on inpatient targets and co-morbidities. Therefore Basal insulin will be continued at 30 units daily. Work towards daily dosing - give 30 units at lunch today then qAM starting tomorrow 05/05/2029. * Post-prandial BSGs did trend up yesterday which may be due to late Lantus or just more bolus dosing. Tightened slightly. * Total daily dose = 60 units. Increased insulin as appropriate. PLAN FOR INPATIENT GLYCEMIC CONTROL: * Oral Agents * Continue to hold outpatient oral diabetes medications. * Basal insulin * Lantus 30 units SQ at lunch then qAM * Bolus insulin * NovoLog per scale ACHS or Q6hrs while NPO * Goal Range: Low 110 mg/dL - High 140 mg/dL * Correction Factor: 20 mg/dL/unit * Nutritional / Prandial insulin per carb ratio of 1 unit per 7 grams CHO consumed RECOMMENDATIONS FOR DISCHARGE: * Patient's HbA1C reasonably controlled for her age and comorbidities. Consider continuing home regimen as long as patient does not suffer from hypoglycemia. * Please note that the plan above was derived based on current level of insulin resistance and hospital stress. These recommendations are appropriate for inpatient admission only. Plan of care upon discharge will need to be reassessed to avoid potential outpatient hypo/hyperglycemia. Thank you.
[2019-05-04] MEDS ORDERED: INSULIN GLARGINE SOLOSTAR 100 UNITS/ML 3 ML PEN SQ SCH (12:00)
--- NOTE | 2019-05-04 12:31 | Discharge Summary ---
Date of Service May 04, 2019 Principal Diagnosis Gram negative bacteremia Discharge Exam Constitutional WD/WN, vitals as above Respiratory normal respiratory effort, lungs clear to auscultation Cardiovascular RRR, no murmur, no edema Gastrointestinal (Abdomen) Inspection/Auscultation: abdomen normal to inspection and normal bowel sounds; abdomen not distended Percussion/Palpation: abdomen soft; abdomen nontender Musculoskeletal no cyanosis or clubbing, extremities motor strength 5/5 Skin no rashes, warm and dry Neurologic moves all extremities and awake Psychiatric A+Ox3, euthymic affect Discharge Data Allergies Allergy/AdvReac Type Severity Reaction Status Date / Time aspirin Allergy Mild HIVES Verified 05/02/19 19:40 caffeine Allergy Mild HIVES Verified 05/02/19 19:40 Hospital Course (1) Gram-negative bacteremia: Blood cultures from ED visit 05/01 growing pansensitive E. coli, second set from 05/02 are ngtd. Bacteremia source is E.Coli UTI Provided ceftriaxone 2g inpatient - will give total of 14 days abx from abx first given in ED and will have patient continue with cefdinir at home (2) E-coli UTI: Pansensitive E.coli growing in culture CT scan 05/01 showed possible pyelonephritis Treatment as above (3) Depression: Continue home paroxetine (4) Diabetic neuropathy: Continue home gabapentin (5) Dyslipidemia: Continue home statin (6) Hypertension: continue home lisinopril (7) Diabetes: Type II with neuropathy Hold home metformin and dulaglutide inpatient - can resume home regimen outpatient Continue home gabapentin Consult glycemic pharmacist (8) CKD (chronic kidney disease), stage III: Avoid nephrotoxins where possible (9) Anemia: No obvious s/s of bleeding Iron studies showed low iron, B12 low, Folate wn; Gave 1 dose of IV venofer today and will start po iron supplementation as well as B12 supplementation Hgb stable today on recheck Follow up with pcp (10) ALISIA (acute kidney injury): resolved with IVF (11) DVT prophylaxis: SCDs Total Time Total Time Spent Total Time Spent (In Minutes): greater than 30 minutes Discharge Plan Discharge Items Patient Disposition: Home - Self-Care Reason For Visit: BACTEREMIA,UTI Discharge Diagnosis: Bacteremia Activity: Resume your previous activity Non-emergency contact: Primary Care Provider Call non-emergency contact if: you have any medication questions, your symptoms worsen and your temperature is above 101 Follow-up/Referrals: Kim Handy CRNP [Primary Care Provider] - (Follow up within 1 week Patient has an appointment scheduled with PCP on May.07 ) Diet: Carb Consistent or DM2 Addtl Attending Provider Instructions: (1) Gram-negative bacteremia and urinary tract infection Your blood cultures grew a bacteria called E. coli which likely came from your urine which grew the same bacteria You can resume your cefdinir prescription tomorrow morning given to you by the emergency department as the bacteria is susceptible to this drug If you begin to run fevers above 100.4 please call your doctor or report back to the emergency room (2) CKD (chronic kidney disease), stage III: Avoid non-steroidal anti-inflammatories (NSAIDs) such as ibuprofen and naproxen. If you are having pain acetaminophen is a good choice. Follow with your doctor (9) Anemia: Your iron and B12 levels in your blood work were low. This is likely what is causing your anemia (low hemoglobin). You were given a dose of intravenous iron and will start on daily iron supplements. Iron can sometimes be constipating and you may want to consider adding a stool softener. Iron can also cause stomach upset. If you cannot tolerate daily iron you can try every other day. You will also start on B12 supplementation. Pending Studies at Discharge: No Stand-Alone Forms: [facility] Medications and DC Order Prescriptions: New ferrous sulfate 325 mg (65 mg iron) Tablet,Delayed Release (Dr/Ec) 325 mg PO QAM Qty: 30 RF: 0 B12 Active 1,000 mcg tablet,chewable 1,000 mcg PO DAILY Qty: 30 RF: 0 Continued calcium carbonate [Calcium 600] 600 mg calcium (1,500 mg) tablet 600 mg PO DAILY Qty: 30 RF: 0 cholecalciferol (vitamin D3) 2,000 unit tablet 2,000 units PO BID Qty: 30 RF: 0 paroxetine HCl 20 mg tablet 20 mg PO DAILY Qty: 30 RF: 2 metformin 1,000 mg tablet See Rx Instructions .ROUTE .COMPLEX Qty: 60 RF: 5 alendronate 70 mg tablet See Rx Instructions .ROUTE .COMPLEX Qty: 4 RF: 11 dulaglutide [Trulicity] 0.75 mg/0.5 mL pen injector See Rx Instructions .ROUTE .COMPLEX Qty: 2 RF: 7 gabapentin 100 mg capsule See Rx Instructions .ROUTE .COMPLEX Qty: 60 RF: 5 atorvastatin 80 mg tablet 80 mg PO HS Qty: 90 RF: 3 lisinopril 20 mg tablet 20 mg PO DAILY Qty: 30 RF: 5 cefdinir 300 mg capsule 300 mg PO BID 10 Days Qty: 20 RF: 0 Lantus Solostar U-100 Insulin 100 unit/mL (3 mL) Insulin Pen 40 unit SUBCUT DAILY RF: 0 insulin aspart U-100 [Novolog U-100 Insulin aspart] 100 unit/mL solution 10 unit subcut QAM RF: 0 Discharge Orders: Discharge Order (Routine); Ordered 05/04/19 Ordered By: Lisette Piedra Admission Data Admit Date/Time: 05/02/19 17:40 Attending Provider: Syed Ng Admit Provider: Syed Ng Primary Care Provider: Kim Handy Coding Level of Care Code D/C Day Management >30 mins Diagnoses Gram-negative bacteremia R78.81 E-coli UTI N39.0; B96.20 Depression F32.9 Diabetic neuropathy E11.40 Dyslipidemia E78.5 Hypertension I10 Diabetes E11.9 CKD (chronic kidney disease), stage III N18.3 Anemia D64.9 ALISIA (acute kidney injury) N17.9 DVT prophylaxis Z29.9
[2019-05-04] MEDS ORDERED: cefTRIAXone SODIUM 2,000 MG in DEXTROSE 5% 50 ML IV ONE (13:00)
== END 2019-05-04 16:17 | disposition home or self-care (01) | DRG 872 ==
LOC: ED 15:11 → 3N 17:40

== ENCOUNTER 2020-01-13 20:30 | Inpatient (IN) ==
[2020-01-13] MEDS ORDERED: ONDANSETRON INJ 2 MG/ML 2 ML VIAL IV STA (21:11)
[2020-01-13] MEDS ORDERED: ACETAMINOPHEN 1,000 MG/100 ML VIAL IV STA (21:15)
[2020-01-13] MEDS ORDERED: SODIUM CHLORIDE 0.9% 1000ML 500 ML IV ONE (21:15)
[2020-01-13 21:19] LABS: Basophils # (auto) 0.01 K/uL (0-0.2); Basophils % (auto) 0.1 %; Eosinophils # (auto) 0.02 K/uL (0-0.5); Eosinophils % (auto) 0.2 %; Hematocrit (blood only) 40.2 % (37-47); Hemoglobin 13.1 g/dL (12.0-16.0); Immature Granulocytes # (auto) 0.02 K/uL (0.00-0.02); Immature Granulocytes % (auto) 0.2 %; Lymphocytes # (auto) 0.53 K/uL (1.2-3.4); Lymphocytes % (auto) 6.3 %; Mean Corpuscular Hemoglobin 29.8 pg (25-34); Mean Corpuscular Hgb Conc 32.6 g/dL (32-36); Mean Corpuscular Volume 91.4 fL (80-100); Mean Platelet Volume 10.6 fL (7.4-10.4); Monocytes # (auto) 0.43 K/uL (0.11-0.59); Monocytes % (auto) 5.1 %; Neutrophils # (auto) 7.42 K/uL (1.4-6.5); Neutrophils % (auto) 88.1 %; Platelet Count 237 K/uL (130-400); RDW Coefficient of Variation 14.1 % (11.5-14.5); RDW Standard Deviation 47.5 fL (36.4-46.3); White Blood Count 8.43 K/uL (4.8-10.8)
[2020-01-13] MEDS: HYDROmorphone INJ 0.5 MG/0.5 ML SYR IV PRN ×2 (21:26→23:20)
[2020-01-13 21:42] LABS: Alanine Aminotransferase 16 U/L (12-78); Albumin Level 4.4 gm/dl (3.4-5.0); Aspartate Aminotransferase 30 U/L (15-37); BUN Creatinine Ratio 15.7 (10-20); Blood Urea Nitrogen 24 mg/dl (7-18); Calcium 10.2 mg/dl (8.5-10.1); Carbon Dioxide 27 mmol/L (21-32); Chloride 103 mmol/L (98-107); Creatinine Clr Calc Pharmacy 32.7 ml/min; Est GFR (African American) 38.8; Est GFR (Non-African American) 33.5; Glucose 132 mg/dl (70-99); Lipase 171 U/L (73-393); Potassium 4.4 mmol/L (3.5-5.1); Sodium 138 mmol/L (136-145)
[2020-01-13 21:46] LABS: Alkaline Phosphatase 110 U/L (45-117); Bilirubin,Total 0.9 mg/dl (0.2-1); Creatine Kinase 167 U/L (26-192); Globulin 4.3 gm/dl (2.5-4.0); Total Protein 8.7 gm/dl (6.4-8.2); Troponin I < 0.015 ng/ml (0-0.045)
[2020-01-13 22:05] LABS: Appearance Urine Cloudy (Clear); Bacteria Urine Automated 2+ (Negative); Bilirubin Urine Negative (Negative); Blood Urine Negative (Negative); Color Urine Yellow; Epithelial Cell Urine Auto >30 /lpf (0-5); Glucose Urine UA Negative (Negative); Ketones Urine Trace (Negative); Leukocyte Esterase Urine 1+ (Negative); Nitrite Urine Negative (Negative); Protein Urine 1+ (Negative); RBC Urine Automated 0-4 /hpf (0-4); Specific Gravity Urine 1.025 (1.000-1.030); Urobilinogen Urine Negative (Negative); WBC Urine Automated >30 /hpf (0-5)
[2020-01-13] MEDS ORDERED: IOVERSOL 100ml IV ONE (22:07)
[2020-01-13] MEDS ORDERED: cefTRIAXone SODIUM 2,000 MG/70 ML BAG IV STA (22:18)
--- NOTE | 2020-01-13 22:24 | Emergency Department Note ---
History of Present Illness General Chief complaint: Abdominal Pain Stated complaint: Abdominal Pain,Vomit Time Seen by Provider: 01/13/20 20:39 Source: patient, family, RN notes reviewed and old records reviewed Mode of arrival: ambulatory Limitations: no limitations History of Present Illness Provider complaint: Abdominal pain Onset (ago): hour(s) 6 Location: abdomen Radiation: back Severity: moderate Pain Consistency: + intermittent Maximum Pain Intensity: 8 Current Pain Intensity: 8 Quality: + aching Relieved By: + other (vomiting) Exacerbated By: + movement Associated symptoms: + nausea/vomiting; no confusion, no chest pain, no cough, no diaphoresis, no fever/chills, no headaches and no shortness of breath Treatments prior to arrival: none This is a 74-year-old female who presents emergency department complaining of upper abdominal pain that radiates into her back that has been ongoing since this afternoon. The patient reports the pain is been ongoing for the past 6 hours and that only vomiting makes the pain better. She reports nothing makes the pain worse. She denies any fevers or chills. She has not taken anything for the pain prior to arrival. She describes the pain as a burning sensation. Home Medications Home Medications Medication Instructions Recorded Confirmed Type alendronate 70 mg tablet See Rx Instructions .ROUTE 02/28/19 01/13/20 Rx .COMPLEX #4 tablet ferrous sulfate 325 mg PO QAM #30 tab 05/04/19 01/13/20 Rx atorvastatin 80 mg tablet 80 mg PO HS #90 tab 05/13/19 01/13/20 Rx paroxetine HCl 20 mg tablet 20 mg PO DAILY #90 tab 05/13/19 01/13/20 Rx lisinopril 20 mg tablet 20 mg PO DAILY #30 tab 08/21/19 01/13/20 Rx insulin syringe-needle U-100 1 mL #100 ea 08/30/19 Rx 27 gauge x 1/2" dulaglutide 0.75 mg/0.5 mL See Rx Instructions .ROUTE 12/12/19 01/13/20 Rx subcutaneous pen injector .COMPLEX #2 milliliter cyanocobalamin (vitamin B-12) 1,000 mcg PO DAILY 01/13/20 01/13/20 History [Vitamin B-12] gabapentin 200 mg PO HS 01/13/20 01/13/20 History insulin aspart U-100 [Novolog 10 unit SUBCUT BID 01/13/20 01/13/20 History U-100 Insulin aspart] insulin glargine [Lantus U-100 45 units SQ BID 01/13/20 01/13/20 History Insulin] metformin 1,000 mg PO BID 01/13/20 01/13/20 History Allergies Allergy/AdvReac Type Severity Reaction Status Date / Time orange (food color) Allergy Intermediate Hives Verified 01/13/20 21:20 yellow dye Allergy Intermediate Hives Verified 01/13/20 21:20 aspirin Allergy Mild HIVES Verified 01/13/20 21:20 Past Med/Surg History Medical History (Updated 01/16/20 @ 16:14 by Russell Garcia MD) Bronchitis Chronic kidney disease, stage 3a Depression Diabetes Dyslipidemia Hypertension Morbid obesity with BMI of 40.0-44.9, adult Osteoporosis SBO (small bowel obstruction) Surgical History History of appendectomy History of bladder repair surgery History of hysterectomy History of repair of rotator cuff History of shoulder surgery Family History Father Myocardial infarction Diabetes Mother Cancer Other Cardiac disorder Denies family history of Ovarian cancer Prostate cancer Breast cancer Colorectal cancer Social History Smoking Status: Never smoker Second Hand Exposure: No; Do You Dip or Chew Tobacco: No; Tobacco Cessation Education Requested by Patient: No Hx Alcohol Use: No Hx Substance Use: No Preferred Language: [place] Communication Ability: Effective Senior Facilities Manager Required: No Beliefs That Will Affect Care: None marital status: / Current Living Situation: Family Current Living Situation Comment: son and two dogs current occupational status: retired How many Children do You have: 3 Other Information That Helps Us Care for You: No Feels Safe at Home: Yes Safety Concerns: Feels Safe At This Time caffeine: Yes Dental Care, Regularly: No Seatbelt Use: always Sunscreen Use: Yes Assistive Devices: Glasses Review of Systems A total of 10 systems reviewed and were otherwise negative Physical Exam Vital Signs Vital Signs - 24 hr 01/13/20 20:34 01/13/20 21:32 01/13/20 21:35 Temperature 36.5 C Temperature Source Oral Pulse Rate 71 71 68 Pulse Rate [Apical] Pulse Rate from SpO2 Sensor 69 Pulse Rhythm Regular Pulse Rhythm [Apical] Respiratory Rate 18 18 20 Respiratory Effort / Characteristics Non-Labored Spontaneous Respiratory Depth Normal Respiratory Pattern Regular Blood Pressure 177/79 H 183/82 H Blood Pressure [Left Arm] Blood Pressure Mean 111 104 Blood Pressure Mean [Left Arm] Blood Pressure Position Lying Blood Pressure Position [Left Arm] Pulse Oximetry 93 94 96 Oxygen Delivery Method Room Air Room Air Room Air Sepsis Recent Fever Within 48 Hours No Sepsis New/Unexplained Change in Mental Status No Sepsis Action Taken by Nursing No Action Required 01/13/20 23:24 01/13/20 23:25 Temperature Temperature Source Pulse Rate 70 Pulse Rate [Apical] 69 Pulse Rate from SpO2 Sensor 69 Pulse Rhythm Pulse Rhythm [Apical] Regular Respiratory Rate 15 18 Respiratory Effort / Characteristics Non-Labored Spontaneous Respiratory Depth Normal Respiratory Pattern Blood Pressure 141/75 H Blood Pressure [Left Arm] 141/75 H Blood Pressure Mean 93 Blood Pressure Mean [Left Arm] 97 Blood Pressure Position Blood Pressure Position [Left Arm] Lying Pulse Oximetry 97 95 Oxygen Delivery Method Room Air Sepsis Recent Fever Within 48 Hours Sepsis New/Unexplained Change in Mental Status Sepsis Action Taken by Nursing VITAL SIGNS - Vital signs and nursing notes were reviewed. GENERAL - 74-year-old female appearing stated age who is in no acute distress. Communicates well with provider and answers questions appropriately. SKIN - Without rashes. HEAD - NC/AT. EYES - PERRL with EOMI bilaterally. Sclera anicteric. Palpebral conjunctiva pink and moist with no injection noted. EARS - No deformities of external structures noted on gross examination bilaterally. No pain elicited with palpation of the tragus bilaterally. External auditory canals without discharge or otorrhea. Tympanic membranes pearly scott without retraction or bulging. No fluid or purulent material visualized behind the TM. Handle of malleus, umbo, cone of light, pars tensa/flaccid all easily vi sualized. NOSE - Midline and without cyanosis. No epistaxis or purulent drainage noted. Septum midline without deviation or septal hematoma noted. MOUTH/OROPHARYNX - Without perioral cyanosis. Buccal mucosa pink and moist and without leukoplakia. Tongue midline with equal elevation of palate bilaterally. No tonsillar hypertrophy, erythema, or exudates noted. dentition noted. NECK - Neck with FROM. Supple to palpation. lymphadenopathy noted. No nuchal rigidity. LUNGS - Chest wall symmetric without accessory muscle use, intercostals retractions, or central cyanosis. Normal vesicular breath sounds CTA B/L. No wheezes, rales, or rhonchi appreciated. CARDIAC - RRR with S1/S2. No murmur, rubs, or gallops appreciated. ABDOMEN - Abdominal contour without pulsations or visible masses. BS normoactive all four quadrants. Tender epigastric area, No palpable masses, hepatosplenomegaly, or ascites noted. EXTREMITIES - No clubbing or peripheral cyanosis. No pretibial edema present. +3/5 radial, posterior tibial, and dorsalis pedis pulses palpated throughout. +5/5 strength noted in UE/LE bilaterally. NEUROLOGIC - Cranial nerves II through XII grossly intact. Sensory intact to light touch throughout. Patellar reflexes +2/4. PSYCH - A&Ox3 and cooperates fully with examiner. Pt is very pleasant and interacts well with examiner. Course Administered Medications Cephalexin HCl (Cephalexin 500 Mg Cap) 500 mg PO BID [facility]; Protocol Stop: 01/22/20 20:59 Last Admin: 01/21/20 09:03 Dose: 500 mg Documented by: [id number] Admin: 01/20/20 21:38 Dose: 500 mg Documented by: [id number] Gabapentin (Gabapentin 100 Mg Cap) 200 mg PO HS [facility] Stop: 02/18/20 20:59 Last Admin: 01/20/20 21:38 Dose: 200 mg Documented by: [id number] Admin: 01/19/20 20:56 Dose: 200 mg Documented by: [id number] Heparin Sodium (Porcine) (Heparin Sod 5,000 Unit/0.5 Ml Vial) 5,000 units SQ Q8 [facility] Stop: 02/19/20 13:59 Last Admin: 01/21/20 05:23 Dose: 5,000 units Documented by: [id number] Admin: 01/20/20 21:39 Dose: 5,000 units Documented by: [id number] Admin: 01/20/20 13:33 Dose: 5,000 units Documented by: [id number] Insulin Aspart (Insulin Aspart 100 Units/Ml 3 Ml Pen) 0 units SC ACHS [facility] Stop: 02/17/20 16:29 Last Admin: 01/21/20 09:03 Dose: 4 units Documented by: [id number] Cosigned by: [id number] Admin: 01/20/20 21:38 Dose: Not Given Documented by: [id number] Cosigned by: [id number] Admin: 01/20/20 18:35 Dose: 3 units Documented by: [id number] Cosigned by: [id number] Admin: 01/20/20 13:32 Dose: 3 units Documented by: [id number] Cosigned by: [id number] Admin: 01/20/20 09:11 Dose: 3 units Documented by: [id number] Cosigned by: [id number] Admin: 01/19/20 20:58 Dose: 1 units Documented by: [id number] Cosigned by: [id number] Admin: 01/19/20 18:12 Dose: 4 units Documented by: [id number] Cosigned by: [id number] Admin: 01/19/20 13:13 Dose: 2 units Documented by: [id number] Cosigned by: [id number] Admin: 01/19/20 08:57 Dose: 3 units Documented by: [id number] Cosigned by: [id number] Admin: 01/18/20 22:20 Dose: 2 units Documented by: [id number] Cosigned by: [id number] Admin: 01/18/20 19:31 Dose: 4 units Documented by: [id number] Cosigned by: [id number] Lisinopril (Lisinopril 20 Mg Tab) 20 mg PO QAM [facility] Stop: 02/20/20 09:44 Last Admin: 01/21/20 09:52 Dose: 20 mg Documented by: [id number] Morphine Sulfate (Morphine Sulfate 2 Mg/Ml Carp) 2 mg IV Q4H PRN PRN Reason: Pain Stop: 01/28/20 01:00 Last Admin: 01/17/20 23:14 Dose: 2 mg Documented by: [id number] Admin: 01/17/20 12:43 Dose: 2 mg Documented by: [id number] Admin: 01/17/20 05:56 Dose: 2 mg Documented by: [id number] Admin: 01/16/20 20:32 Dose: 2 mg Documented by: [id number] Admin: 01/14/20 12:08 Dose: 2 mg Documented by: [id number] Admin: 01/14/20 06:19 Dose: 2 mg Documented by: [id number] Admin: 01/14/20 01:50 Dose: 2 mg Documented by: [id number] Ondansetron HCl (Ondansetron Inj 2 Mg/Ml 2 Ml Vial) 4 mg IV Q6H PRN PRN Reason: Nausea Stop: 02/13/20 01:00 Last Admin: 01/16/20 13:55 Dose: 4 mg Documented by: [id number] Admin: 01/16/20 10:19 Dose: 4 mg Documented by: [id number] Paroxetine HCl (Paroxetine Hcl 20 Mg Tab) 20 mg PO QAM [facility] Stop: 02/19/20 08:59 Last Admin: 01/21/20 09:03 Dose: 20 mg Documented by: [id number] Admin: 01/20/20 09:13 Dose: 20 mg Documented by: [id number] Discontinued Medications Acetaminophen (Acetaminophen 1000 Mg/100 Ml Iv) 1,000 mg IV Q8H PRN PRN Reason: pain Stop: 01/18/20 16:16 Last Admin: 01/16/20 07:43 Dose: 1,000 mg Documented by: [id number] Admin: 01/15/20 16:34 Dose: 1,000 mg Documented by: [id number] Amlodipine Besylate (Amlodipine Besylate 5 Mg Tab) 2.5 mg PO [facility] Stop: 02/14/20 20:59 Last Admin: 01/15/20 21:09 Dose: 2.5 mg Documented by: [id number] Atorvastatin Calcium (Atorvastatin 40 Mg Tab) 80 mg PO [facility] Stop: 02/13/20 20:59 Last Admin: 01/15/20 21:05 Dose: 80 mg Documented by: [id number] Admin: 01/14/20 20:36 Dose: 80 mg Documented by: [id number] Cyanocobalamin (Cyanocobalamin 500 Mcg Tablet (Vitamin B-12)) 1,000 mcg PO DAILY [facility] Stop: 02/13/20 08:59 Last Admin: 01/15/20 07:53 Dose: 1,000 mcg Documented by: [id number] Admin: 01/14/20 11:14 Dose: Not Given Documented by: [id number] Cyanocobalamin (Cyanocobalamin 500 Mcg Tablet (Vitamin B-12)) 1,000 mcg PO DAILY [facility] Stop: 02/15/20 08:59 Last Admin: 01/16/20 07:57 Dose: 1,000 mcg Documented by: [id number] Gabapentin (Gabapentin 100 Mg Cap) 200 mg PO HS [facility] Stop: 02/13/20 20:59 Last Admin: 01/15/20 21:05 Dose: 200 mg Documented by: [id number] Admin: 01/14/20 20:36 Dose: 200 mg Documented by: [id number] Heparin Sodium (Porcine) (Heparin Sod 5,000 Unit/0.5 Ml Vial) 5,000 units SQ Q8 [facility] Stop: 02/15/20 13:59 Last Admin: 01/17/20 05:56 Dose: 5,000 units Documented by: [id number] Cosigned by: [id number] Admin: 01/16/20 21:39 Dose: 5,000 units Documented by: [id number] Cosigned by: [id number] Admin: 01/16/20 13:58 Dose: 5,000 units Documented by: [id number] Cosigned by: [id number] Heparin Sodium (Porcine) (Heparin Sod 5,000 Unit/0.5 Ml Vial) 5,000 units SQ Q12 [facility] Stop: 02/16/20 20:59 Last Admin: 01/19/20 20:58 Dose: 5,000 units Documented by: [id number] Admin: 01/19/20 08:57 Dose: 5,000 units Documented by: [id number] Admin: 01/18/20 22:20 Dose: 5,000 units Documented by: [id number] Admin: 01/18/20 08:57 Dose: 5,000 units Documented by: [id number] Admin: 01/17/20 21:42 Dose: 5,000 units Documented by: [id number] Cosigned by: [id number] Hydromorphone HCl (Hydromorphone Inj 0.5 Mg/0.5 Ml Syr) 0.25 mg IV Q15M PRN PRN Reason: Pain Stop: 01/27/20 21:10 Last Admin: 01/13/20 23:20 Dose: 0.25 mg Documented by: [id number] Admin: 01/13/20 21:26 Dose: 0.25 mg Documented by: [id number] Sodium Chloride (Nss 1000ml) 500 mls @ 999 mls/hr IV .Q31M ONE Stop: 01/13/20 21:45 Last Infusion: 01/13/20 22:13 Dose: 0 mls/hr Documented by: [id number] Admin: 01/13/20 21:26 Dose: 999 mls/hr Documented by: [id number] Acetaminophen (Ofirmev) 1,000 mg in 100 mls @ 400 mls/hr IV NOW STA Stop: 01/13/20 21:29 Last Infusion: 01/13/20 21:44 Dose: 0 mls/hr Documented by: [id number] Admin: 01/13/20 21:27 Dose: 400 mls/hr Documented by: [id number] Ceftriaxone Sodium (Rocephin) 2,000 mg in 70 mls @ 140 mls/hr IV NOW STA Stop: 01/13/20 22:47 Last Infusion: 01/14/20 00:25 Dose: 0 mls/hr Documented by: [id number] Admin: 01/13/20 23:24 Dose: 140 mls/hr Documented by: [id number] Ceftriaxone Sodium 2,000 mg/ (Dextrose) 70 mls @ 100 mls/hr IV Q24H [facility]; Protocol Stop: 01/18/20 21:59 Last Infusion: 01/15/20 22:04 Dose: 0 mls/hr Documented by: [id number] Admin: 01/15/20 21:18 Dose: 100 mls/hr Documented by: [id number] Infusion: 01/14/20 21:20 Dose: 0 mls/hr Documented by: [id number] Admin: 01/14/20 20:38 Dose: 100 mls/hr Documented by: [id number] Sodium Chloride (Nss 1000ml) 1,000 mls @ 125 mls/hr IV .Q8H [facility] Stop: 01/14/20 17:00 Last Infusion: 01/15/20 00:21 Dose: 0 mls/hr Documented by: [id number] Admin: 01/14/20 09:41 Dose: 100 mls/hr Documented by: [id number] Infusion: 01/14/20 09:41 Dose: 100 mls/hr Documented by: [id number] Admin: 01/14/20 01:15 Dose: 100 mls/hr Documented by: [id number] Sodium Chloride (Nss 1000ml) 1,000 mls @ 125 mls/hr IV .Q8H [facility] Stop: 02/13/20 17:44 Last Infusion: 01/16/20 20:39 Dose: 0 mls/hr Documented by: [id number] Admin: 01/16/20 15:14 Dose: 125 mls/hr Documented by: [id number] Infusion: 01/16/20 15:14 Dose: 125 mls/hr Documented by: [id number] Admin: 01/16/20 07:56 Dose: 125 mls/hr Documented by: [id number] Infusion: 01/16/20 07:51 Dose: 125 mls/hr Documented by: [id number] Admin: 01/15/20 23:51 Dose: 125 mls/hr Documented by: [id number] Infusion: 01/15/20 23:36 Dose: 125 mls/hr Documented by: [id number] Infusion: 01/15/20 22:05 Dose: 125 mls/hr Documented by: [id number] Admin: 01/15/20 15:36 Dose: 125 mls/hr Documented by: [id number] Infusion: 01/15/20 15:36 Dose: 125 mls/hr Documented by: [id number] Admin: 01/15/20 07:52 Dose: 125 mls/hr Documented by: [id number] Infusion: 01/15/20 07:52 Dose: 125 mls/hr Documented by: [id number] Admin: 01/15/20 00:21 Dose: 125 mls/hr Documented by: [id number] Infusion: 01/15/20 00:21 Dose: 125 mls/hr Documented by: [id number] Admin: 01/14/20 17:47 Dose: 125 mls/hr Documented by: [id number] Cefoxitin Sodium 2,000 mg/ (Dextrose) 60 mls @ 100 mls/hr IV ONCE ONE Stop: 01/16/20 19:00 Last Infusion: 01/16/20 20:38 Dose: 0 mls/hr Documented by: [id number] Admin: 01/16/20 18:02 Dose: 100 mls/hr Documented by: [id number] Lactated Ringer's (Lr) 1,000 mls @ 80 mls/hr IV .[id number] [facility] Stop: 02/15/20 20:26 Last Infusion: 01/21/20 09:44 Dose: 0 mls/hr Documented by: [id number] Admin: 01/20/20 23:25 Dose: 80 mls/hr Documented by: [id number] Infusion: 01/20/20 23:25 Dose: 80 mls/hr Documented by: [id number] Admin: 01/20/20 11:11 Dose: 80 mls/hr Documented by: [id number] Infusion: 01/20/20 11:11 Dose: 80 mls/hr Documented by: [id number] Infusion: 01/20/20 10:52 Dose: 80 mls/hr Documented by: [id number] Infusion: 01/20/20 06:25 Dose: 125 mls/hr Documented by: [id number] Infusion: 01/20/20 05:49 Dose: 0 mls/hr Documented by: [id number] Admin: 01/20/20 03:22 Dose: 125 mls/hr Documented by: [id number] Infusion: 01/20/20 03:22 Dose: 125 mls/hr Documented by: [id number] Infusion: 01/20/20 00:06 Dose: 125 mls/hr Documented by: [id number] Infusion: 01/19/20 23:30 Dose: 0 mls/hr Documented by: [id number] Infusion: 01/19/20 18:53 Dose: 125 mls/hr Documented by: [id number] Infusion: 01/19/20 18:17 Dose: 0 mls/hr Documented by: [id number] Admin: 01/19/20 18:15 Dose: 125 mls/hr Documented by: [id number] Infusion: 01/19/20 18:15 Dose: 125 mls/hr Documented by: [id number] Infusion: 01/19/20 15:32 Dose: 125 mls/hr Documented by: [id number] Admin: 01/19/20 08:57 Dose: 80 mls/hr Documented by: [id number] Infusion: 01/19/20 08:57 Dose: 80 mls/hr Documented by: [id number] Admin: 01/18/20 22:39 Dose: 80 mls/hr Documented by: [id number] Infusion: 01/18/20 18:03 Dose: 80 mls/hr Documented by: [id number] Infusion: 01/18/20 15:00 Dose: 80 mls/hr Documented by: [id number] Admin: 01/18/20 08:57 Dose: 125 mls/hr Documented by: [id number] Infusion: 01/18/20 08:57 Dose: 80 mls/hr Documented by: [id number] Admin: 01/18/20 02:04 Dose: 125 mls/hr Documented by: [id number] Infusion: 01/18/20 02:04 Dose: 0 mls/hr Documented by: [id number] Infusion: 01/18/20 00:25 Dose: 125 mls/hr Documented by: [id number] Infusion: 01/17/20 22:27 Dose: 0 mls/hr Documented by: [id number] Admin: 01/17/20 18:35 Dose: 125 mls/hr Documented by: [id number] Infusion: 01/17/20 18:35 Dose: 125 mls/hr Documented by: [id number] Infusion: 01/17/20 13:00 Dose: 125 mls/hr Documented by: [id number] Infusion: 01/17/20 11:40 Dose: 0 mls/hr Documented by: [id number] Admin: 01/17/20 09:38 Dose: 125 mls/hr Documented by: [id number] Infusion: 01/17/20 09:31 Dose: 125 mls/hr Documented by: [id number] Infusion: 01/17/20 08:35 Dose: 125 mls/hr Documented by: [id number] Infusion: 01/17/20 08:25 Dose: 125 mls/hr Documented by: [id number] Admin: 01/16/20 21:38 Dose: 80 mls/hr Documented by: [id number] Cefoxitin Sodium 2,000 mg/ (Dextrose) 60 mls @ 100 mls/hr IV Q6H [facility] Stop: 01/27/20 00:00 Last Infusion: 01/20/20 06:25 Dose: 0 mls/hr Documented by: [id number] Admin: 01/20/20 05:49 Dose: 100 mls/hr Documented by: [id number] Infusion: 01/20/20 00:06 Dose: 0 mls/hr Documented by: [id number] Admin: 01/19/20 23:30 Dose: 100 mls/hr Documented by: [id number] Infusion: 01/19/20 18:53 Dose: 0 mls/hr Documented by: [id number] Admin: 01/19/20 18:17 Dose: 100 mls/hr Documented by: [id number] Infusion: 01/19/20 12:20 Dose: 0 mls/hr Documented by: [id number] Admin: 01/19/20 11:39 Dose: 100 mls/hr Documented by: [id number] Infusion: 01/19/20 07:12 Dose: 0 mls/hr Documented by: [id number] Admin: 01/19/20 06:25 Dose: 100 mls/hr Documented by: [id number] Infusion: 01/19/20 01:43 Dose: 0 mls/hr Documented by: [id number] Admin: 01/19/20 01:08 Dose: 100 mls/hr Documented by: [id number] Infusion: 01/18/20 21:39 Dose: 0 mls/hr Documented by: [id number] Admin: 01/18/20 19:30 Dose: 100 mls/hr Documented by: [id number] Infusion: 01/18/20 13:11 Dose: 0 mls/hr Documented by: [id number] Admin: 01/18/20 12:35 Dose: 100 mls/hr Documented by: [id number] Infusion: 01/18/20 07:16 Dose: 0 mls/hr Documented by: [id number] Admin: 01/18/20 06:35 Dose: 100 mls/hr Documented by: [id number] Infusion: 01/17/20 23:51 Dose: 0 mls/hr Documented by: [id number] Admin: 01/17/20 23:15 Dose: 100 mls/hr Documented by: [id number] Infusion: 01/17/20 22:27 Dose: 0 mls/hr Documented by: [id number] Admin: 01/17/20 17:24 Dose: 100 mls/hr Documented by: [id number] Infusion: 01/17/20 12:18 Dose: 0 mls/hr Documented by: [id number] Admin: 01/17/20 11:40 Dose: 100 mls/hr Documented by: [id number] Infusion: 01/17/20 07:38 Dose: 0 mls/hr Documented by: [id number] Admin: 01/17/20 05:56 Dose: 100 mls/hr Documented by: [id number] Infusion: 01/16/20 23:54 Dose: 0 mls/hr Documented by: [id number] Admin: 01/16/20 23:21 Dose: 100 mls/hr Documented by: [id number] Acetaminophen (Ofirmev) 1,000 mg in 100 mls @ 400 mls/hr IV Q8H [facility] Stop: 01/19/20 20:59 Last Infusion: 01/19/20 13:30 Dose: 0 mls/hr Documented by: [id number] Admin: 01/19/20 13:13 Dose: 400 mls/hr Documented by: [id number] Infusion: 01/19/20 05:50 Dose: 0 mls/hr Documented by: [id number] Admin: 01/19/20 05:32 Dose: 400 mls/hr Documented by: [id number] Infusion: 01/18/20 22:38 Dose: 0 mls/hr Documented by: [id number] Admin: 01/18/20 22:16 Dose: 400 mls/hr Documented by: [id number] Infusion: 01/18/20 13:38 Dose: 0 mls/hr Documented by: [id number] Admin: 01/18/20 13:10 Dose: 400 mls/hr Documented by: [id number] Infusion: 01/18/20 06:39 Dose: 0 mls/hr Documented by: [id number] Admin: 01/18/20 06:19 Dose: 400 mls/hr Documented by: [id number] Infusion: 01/17/20 22:30 Dose: 0 mls/hr Documented by: [id number] Admin: 01/17/20 21:41 Dose: 400 mls/hr Documented by: [id number] Infusion: 01/17/20 13:38 Dose: 0 mls/hr Documented by: [id number] Admin: 01/17/20 13:20 Dose: 400 mls/hr Documented by: [id number] Infusion: 01/17/20 07:39 Dose: 0 mls/hr Documented by: [id number] Admin: 01/17/20 05:55 Dose: 400 mls/hr Documented by: [id number] Infusion: 01/16/20 22:01 Dose: 0 mls/hr Documented by: [id number] Admin: 01/16/20 21:38 Dose: 400 mls/hr Documented by: [id number] Influenza Virus Vaccine Quadrival (Influenza Virus Quad Vaccine 0.5 Ml Syr) 0.5 ml IM .ONCE ONE Stop: 01/14/20 01:44 Last Admin: 01/14/20 08:43 Dose: 0.5 ml Documented by: [id number] Insulin Aspart (Insulin Aspart 100 Units/Ml 3 Ml Pen) 0 units SC Q6 [facility] Stop: 02/13/20 05:59 Last Admin: 01/18/20 12:39 Dose: 4 units Documented by: [id number] Cosigned by: [id number] Admin: 01/18/20 07:16 Dose: Not Given Documented by: [id number] Cosigned by: [id number] Admin: 01/18/20 00:26 Dose: 1 units Documented by: [id number] Cosigned by: [id number] Admin: 01/17/20 18:04 Dose: Not Given Documented by: [id number] Cosigned by: [id number] Admin: 01/17/20 12:24 Dose: Not Given Documented by: [id number] Cosigned by: [id number] Admin: 01/17/20 06:04 Dose: Not Given Documented by: [id number] Cosigned by: [id number] Admin: 01/16/20 23:58 Dose: 1 units Documented by: [id number] Cosigned by: [id number] Admin: 01/16/20 20:37 Dose: Not Given Documented by: [id number] Cosigned by: [id number] Admin: 01/16/20 12:19 Dose: Not Given Documented by: [id number] Cosigned by: [id number] Admin: 01/16/20 06:36 Dose: Not Given Documented by: [id number] Cosigned by: [id number] Admin: 01/16/20 00:09 Dose: Not Given Documented by: [id number] Cosigned by: [id number] Admin: 01/15/20 18:51 Dose: Not Given Documented by: [id number] Cosigned by: [id number] Admin: 01/15/20 12:16 Dose: Not Given Documented by: [id number] Cosigned by: [id number] Admin: 01/15/20 06:35 Dose: Not Given Documented by: [id number] Cosigned by: [id number] Admin: 01/15/20 00:16 Dose: Not Given Documented by: [id number] Cosigned by: [id number] Admin: 01/14/20 17:45 Dose: Not Given Documented by: [id number] Cosigned by: [id number] Admin: 01/14/20 12:20 Dose: Not Given Documented by: [id number] Cosigned by: [id number] Admin: 01/14/20 06:16 Dose: Not Given Documented by: [id number] Cosigned by: [id number] Insulin Glargine (Insulin Glargine Solostar 100 Units/Ml 3 Ml Pen) 20 units SQ BID [facility] Stop: 02/13/20 08:59 Last Admin: 01/14/20 22:02 Dose: Not Given Documented by: [id number] Admin: 01/14/20 09:44 Dose: Not Given Documented by: [id number] Ioversol (Ioversol 100ml) 93 ml IV ONCE ONE Stop: 01/13/20 22:08 Last Admin: 01/13/20 22:08 Dose: 1 ml Documented by: [id number] Lisinopril (Lisinopril 20 Mg Tab) 20 mg PO DAILY [facility] Stop: 02/13/20 08:59 Last Admin: 01/15/20 07:54 Dose: 20 mg Documented by: [id number] Admin: 01/14/20 11:14 Dose: Not Given Documented by: [id number] Lisinopril (Lisinopril 20 Mg Tab) 20 mg NG DAILY [facility] Stop: 02/13/20 08:59 Last Admin: 01/16/20 07:58 Dose: 20 mg Documented by: [id number] Ondansetron HCl (Ondansetron Inj 2 Mg/Ml 2 Ml Vial) 4 mg IV NOW STA Stop: 01/13/20 21:12 Last Admin: 01/13/20 21:26 Dose: 4 mg Documented by: [id number] Paroxetine HCl (Paroxetine Hcl 20 Mg Tab) 20 mg PO DAILY [facility]ISHI Stop: 02/13/20 08:59 Last Admin: 01/16/20 07:59 Dose: 20 mg Documented by: [id number] Admin: 01/15/20 07:53 Dose: 20 mg Documented by: [id number] Admin: 01/14/20 11:14 Dose: Not Given Documented by: [id number] Paroxetine HCl (Paroxetine Hcl 20 Mg Tab) 20 mg PO NOW ONE Stop: 01/19/20 10:24 Last Admin: 01/19/20 11:39 Dose: 20 mg Documented by: [id number] Pneumococcal Polyvalent Vaccine (Pneumococcal Polysaccharides 25 Mcg/0.5 Ml Vial/Syr) 25 mcg IM .ONCE ONE Stop: 01/17/20 10:34 Last Admin: 01/18/20 09:04 Dose: 25 mcg Documented by: [id number] Medical Decision Making Differential Diagnosis Appendicitis, ovarian cyst, ovarian torsion, ectopic , TOA, PID, infections, diverticulitis, UTI, obstruction, mesenteric ischemia, aortic pathology, inflammatory bowel disease, renal colic, PUD, pancreatitis, biliary pathology, hernia, volvulus, constipation, as well as other pathologies. Medical Records Attestation: I reviewed the patient's medical records. Home Medications Current Medication List: was personally reviewed by me Laboratory Data Attestation: I reviewed the patient's lab results. Result diagrams: 01/21/20 06:26 01/21/20 06:19 Lab Results 01/13/20 01/13/20 01/13/20 Range/Units 21:05 21:10 21:10 WBC 8.43 (4.8-10.8) K/uL RBC 4.40 (4.2-5.4) M/uL Hgb 13.1 (12.0-16.0) g/dL Hct 40.2 (37-47) % MCV 91.4 (80-100) fL MCH 29.8 (25-34) pg MCHC 32.6 (32-36) g/dL RDW Std Deviation 47.5 H (36.4-46.3) fL RDW Coeff of Pauly 14.1 (11.5-14.5) % Plt Count 237 (130-400) K/uL MPV 10.6 H (7.4-10.4) fL Immature Gran % (Auto) 0.2 % Neut % (Auto) 88.1 % Lymph % (Auto) 6.3 % [place] % (Auto) 5.1 % Eos % (Auto) 0.2 % Baso % (Auto) 0.1 % Neut # (Auto) 7.42 H (1.4-6.5) K/uL Lymph # (Auto) 0.53 L (1.2-3.4) K/uL Swift # (Auto) 0.43 (0.11-0.59) K/uL Eos # (Auto) 0.02 (0-0.5) K/uL Baso # (Auto) 0.01 (0-0.2) K/uL Immature Gran # (Auto) 0.02 (0.00-0.02) K/uL Sodium 138 (136-145) mmol/L Potassium 4.4 (3.5-5.1) mmol/L Chloride 103 (98-107) mmol/L Carbon Dioxide 27 (21-32) mmol/L Anion Gap 8.0 (3-11) BUN 24 H (7-18) mg/dl Creatinine 1.50 H (0.6-1.2) mg/dl Est Cr Clr Drug Dosing 32.7 ml/min Est GFR ( Amer) 38.8 Est GFR (Non-Af Amer) 33.5 BUN/Creatinine Ratio 15.7 (10-20) Glucose 132 H (70-99) mg/dl Calcium 10.2 H (8.5-10.1) mg/dl Phosphorus 3.6 (2.5-4.9) mg/dl Magnesium 2.4 (1.8-2.4) mg/dl Total Bilirubin 0.9 (0.2-1) mg/dl AST 30 (15-37) U/L ALT 16 (12-78) U/L Alkaline Phosphatase 110 (45-117) U/L Total Creatine Kinase 167 (26-192) U/L Troponin I < 0.015 (0-0.045) ng/ml Total Protein 8.7 H (6.4-8.2) gm/dl Albumin 4.4 (3.4-5.0) gm/dl Globulin 4.3 H (2.5-4.0) gm/dl Albumin/Globulin Ratio 1.0 (0.9-2) Lipase 171 (73-393) U/L Urine Color Yellow Urine Appearance Cloudy A (Clear) Urine pH 5.0 (4.5-7.5) Ur Specific [place] 1.025 (1.000-1.030) Urine Protein 1+ H (Negative) Urine Glucose (UA) Negative (Negative) Urine Ketones Trace H (Negative) Urine Blood Negative (Negative) Urine Nitrite Negative (Negative) Urine Bilirubin Negative (Negative) Urine Urobilinogen Negative (Negative) Ur Leukocyte Esterase 1+ H (Negative) Urine WBC (Auto) >30 H (0-5) /hpf Urine RBC (Auto) 0-4 (0-4) /hpf U Hyaline Cast (Auto) 10-30 H (0-5) /lpf U Epithel Cells (Auto) >30 H (0-5) /lpf Urine Bacteria (Auto) 2+ H (Negative) Imaging Data Attestation: I personally reviewed and interpreted this imaging study as follows: My Impression: 1 view of the chest was interpreted by me shows no evidence of pneumonia congestion or pneumothorax. Radiologist's Impression: CT abdomen pelvis with contrast comparison 05/01/2019 suspicious for small bowel obstruction with decompressed distal small bowel and possible transition point in the right lower abdomen. Mild thickening of the distal small bowel which would indicate superimposed enteritis. Trace pelvic and interloop ascites. No loculated fluid collection. Mild colonic diverticulosis. No CT evidence for diverticulitis. Hysterectomy. Fat-containing ventral abdominal wall hernia. Ultrasound gallbladder: Unremarkable gallbladder. No gallstones no sonographic Galloway sign. The common bile duct measures 5 mm. Unremarkable liver. Patent main portal vein with appropriate hepatopetal flow. The visualized pancreas is unremarkable. Right kidney is unremarkable. No hydronephrosis. ECG Data Attestation: I personally reviewed and interpreted this ECG as follows: Indication: abdominal pain Rate (beats per minute): 68 Rhythm: normal sinus Findings: + RBBB; no ST depression and no ST elevation Comparison ECG Date: from (05/02/2019) Change: the following changes noted (inferior infarct now present) MDM Narrative Patient was seen and evaluated as above in room B3. Review was performed of nursing notes and vital signs. I did review pertinent previous visits and patient history. After obtaining a thorough history and physical examination the above work up was performed. This is a 74-year-old female who presents emergency department complaining of abdominal pain that is relieved by vomiting. Her CAT scan of the abdomen pelvis is concerning for small bowel obstruction. She does not have an elevation in her white blood cell count EKG and troponin have no suggestion of ischemia. Patient was given a normal saline bolus here in the emergency department as her BUN and creatinine are both elevated. An NG tube was placed here in the emergency department. I did discuss the case with both surgeon on-call as well as the hospitalist service who did agree to admit the patient. An order was placed for continuous cardiac monitoring. The monitor shows a rate of 69 with Normal SInus rhythm. The patient was evaluated during the global COVID-19 pandemic, and that diagnosis was suspected/considered upon their initial presentation. Their evaluation, treatment and testing was consistent with current guidelines for pa tients who present with complaints or symptoms that may be related to COVID-19. Impression & Plan Abdominal pain, SBO (small bowel obstruction), Acute UTI Discharge Plan Visit Data Chief Complaint: Abdominal Pain Stated Complaint: Abdominal Pain,Vomit ED Provider: Alexandre Chawla Discharge Problem: Abdominal pain, SBO (small bowel obstruction), Acute UTI Patient Disposition: Admitted As Inpatient Discharge Instructions Interventions: ED Discharge Assessment Last Done: 01/14/20 00:36 Discharge Problem: Abdominal pain Qualifiers: Abdominal location: unspecified location Qualified Code(s): R10.9 - Unspecified abdominal pain
--- NOTE | 2020-01-14 00:02 | Surgery Consultation ---
Date of Consultation January 13, 2020 Assessment & Plan (1) SBO (small bowel obstruction): -pt. to be admitted by medical service -SBO is likely due to adhesions from prior surgery -will try conservative measures: -NGT--has been placed in the ED -IVF for hydration -npo status -will follow while in hospital Supervising Physician Co-Signing Physician Notes As per Jose A Maciel physician healthcare administrative assistant Patient is very comfortable no localized tenderness abdomen is soft large panniculus to the upper thigh no palpable masses no inguinal hernias NG tube in place with minimal drainage At this time I ordered a KUB to follow-up on the bowel obstruction keep the NG tube in until she has some flatus or has a bowel movement History of Present Illness History of Present Illness 74 year old female developed abdominal pain, mostly in the epigastric region about noon on 01/13/20. She had associated N/V which relived the pain somewhat. Her symptoms persisted so she presented to the ED. No provocative facotrs noted. Her pain was improved with emesis as well as analgesics given in the ED. She has had abdominal surgery in the past and has never had a SBO before. No fevers, shakes, chills noted. In the ED, CT scan of the abdomen showed concern for SBO. She was afebrile with normal WBC. She was hemodynamically stable. At the carline eof my exam, she was resting in bed and was not in any distress Allergies Allergy/AdvReac Type Severity Reaction Status Date / Time orange (food color) Allergy Intermediate Hives Verified 01/13/20 21:20 yellow dye Allergy Intermediate Hives Verified 01/13/20 21:20 aspirin Allergy Mild HIVES Verified 01/13/20 21:20 Home Medications Home Medications Medication Instructions Recorded Confirmed Type alendronate 70 mg tablet See Rx Instructions .ROUTE 02/28/19 01/13/20 Rx .COMPLEX #4 tablet ferrous sulfate 325 mg PO QAM #30 tab 05/04/19 01/13/20 Rx atorvastatin 80 mg tablet 80 mg PO HS #90 tab 05/13/19 01/13/20 Rx paroxetine HCl 20 mg tablet 20 mg PO DAILY #90 tab 05/13/19 01/13/20 Rx lisinopril 20 mg tablet 20 mg PO DAILY #30 tab 08/21/19 01/13/20 Rx insulin syringe-needle U-100 1 mL #100 ea 08/30/19 Rx 27 gauge x 1/2" dulaglutide 0.75 mg/0.5 mL See Rx Instructions .ROUTE 12/12/19 01/13/20 Rx subcutaneous pen injector .COMPLEX #2 milliliter cyanocobalamin (vitamin B-12) 1,000 mcg PO DAILY 01/13/20 01/13/20 History [Vitamin B-12] gabapentin 200 mg PO HS 01/13/20 01/13/20 History insulin aspart U-100 [Novolog 10 unit SUBCUT BID 01/13/20 01/13/20 History U-100 Insulin aspart] insulin glargine [Lantus U-100 45 units SQ BID 01/13/20 01/13/20 History Insulin] metformin 1,000 mg PO BID 01/13/20 01/13/20 History Patient History Medical History Bronchitis Diabetes Dyslipidemia Hypertension Osteoporosis Surgical History History of appendectomy History of bladder repair surgery History of hysterectomy History of repair of rotator cuff History of shoulder surgery Family History Father Myocardial infarction Diabetes Mother Cancer Other Cardiac disorder Denies family history of Ovarian cancer Prostate cancer Breast cancer Colorectal cancer Social History Smoking Status: Never smoker Second Hand Exposure: No; Do You Dip or Chew Tobacco: No; Tobacco Cessation Education Requested by Patient: No Hx Alcohol Use: No Hx Substance Use: No Preferred Language: Nigerian Communication Ability: Effective 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 Beliefs That Will Affect Care: None marital status: / Current Living Situation: Family Current Living Situation Comment: son and two dogs current occupational status: retired How many Children do You have: 3 Other Information That Helps Us Care for You: No Feels Safe at Home: Yes Safety Concerns: Feels Safe At This Time caffeine: Yes Dental Care, Regularly: No Seatbelt Use: always Sunscreen Use: Yes Assistive Devices: None Review of Systems Constitutional: no fever and no chills Eyes: no diplopia Ear, Nose, Mouth, Throat: no ear pain Respiratory: no cough and no dyspnea Cardiovascular: no chest pain Gastrointestinal: + abdominal pain, + nausea and + vomiting Genitourinary: no dysuria Musculoskeletal: no back pain Integumentary: no rash Neurologic: no localized weakness Physical Exam Constitutional: well developed, well nourished and + obese; no acute distress Eyes: no conjunctival abnormality ENMT: Ears: no hearing impairment Neck: trachea midline Respiratory: normal respiratory effort; no respiratory distress and no labored breathing Cardiovascular: Rate/Rhythm: regular rate and regular rhythm Gastrointestinal (Abdomen): soft, minimal distetnion noted. Pain with palpation noted in the epigastric area. No rebound tenderness. BS are hypoactive. Musculoskeletal: no calf pain Skin: normal turgor Neurologic: moves all extremities Psychiatric: A+Ox3, euthymic affect Results & Data ([facility]) Vital Signs (Past 12 Hours) Vital Signs Temp Pulse Pulse Resp BP BP Pulse Ox 01/13/20 23:25 69 18 141/75 H 95 01/13/20 23:24 70 15 141/75 H 97 01/13/20 21:35 68 20 183/82 H 96 01/13/20 21:32 71 18 94 01/13/20 20:34 36.5 C 71 18 177/79 H 93 PG Care Time/CCT Total # of Minutes Spent Total Time Spent with Patient: Total time spent is greater than 50% in coordination of care (as documented) at patient's floor/unit and/or counseling patient: Coding Level of Care Code 93534 Inpt Consult Level 5 Diagnoses SBO (small bowel obstruction) K56.609
[2020-01-14] MEDS ORDERED: GLUCOSE 40% GEL 15 GM TUBE PO PRN (01:01)
[2020-01-14] MEDS ORDERED: CARBOHYDRATES FOR HYPOGLYCEMIA PO PRN (01:01)
[2020-01-14] MEDS ORDERED: DEXTROSE 50% 50 ML SYRINGE IV PRN (01:01)
[2020-01-14] MEDS ORDERED: GLUCAGON FOR INJ 1 MG VIAL SQ PRN (01:01)
[2020-01-14] MEDS ORDERED: GLUCOSE 10 TABS/TUBE PO PRN (01:01)
[2020-01-14] MEDS: SODIUM CHLORIDE 0.9% 1000ML 1,000 ML IV SCH ×3 (01:15→17:47)
[2020-01-14 01:26] LABS: Magnesium 2.4 mg/dl (1.8-2.4); Phosphorus 3.6 mg/dl (2.5-4.9)
[2020-01-14] MEDS ORDERED: INFLUENZA VIRUS QUAD VACCINE 0.5 ML SYR IM ONE (01:43)
[2020-01-14] MEDS ORDERED: INFLUENZA ADMINISTRATION CHARGE ONE (01:43)
[2020-01-14] MEDS: MoRPHine SULFATE 2 MG/ML CARP IV PRN ×3 (01:50→12:08)
--- NOTE | 2020-01-14 03:24 | History & Physical Report ---
Date of Service January 13, 2020 Assessment & Plan (1) SBO (small bowel obstruction): Patient with nausea/vomiting/abdominal pain, CT concerning for SBO. Prior h/o hysterectomy. Abdomen is soft, NT and mildly distended at present, non- surgical. -Admit to medical floor -General Surgery assessment appreciated -Maintain NGT to LIWS -NPO -Gentle hydration with NSS at 100mL/hr x 2 liters -Monitor electrolytes and replete as needed -Pain control and anti-emetics as needed -KUB in AM Present on Admission?: Yes (2) Acute UTI: +UA. Patient denies urinary symptoms. Has history of bacteremia secondary to UTI in the past -Follow cultures -Ceftriaxone 2gm IV daily Present on Admission?: Yes (3) Diabetes mellitus type 2 in obese: HV=201 -Decrease Lantus to 20u BID while NPO -ISS -Goal blood sugar 100 - 140 -Continue Gabapentin for neuropathy Present on Admission?: Yes (4) Impaired renal function: BUN=24, Cr=1.5 -Gentle IVF as above -Repeat chemistry in AM -Avoid nephrotoxic medications Present on Admission?: Yes (5) Hypertension: Blood pressure stable -Continue Lisinopril 20mg po daily -Continue to monitor Present on Admission?: Yes (6) Dyslipidemia: Chronic. Stable -Continue Atorvastatin 80mg po qHS Present on Admission?: Yes (7) Depression: Chronic. Stable -Continue Paroxetine 20mg po daily F/E/N - NSS at 100mL/hr x 2 liters, monitor electrolytes and replete as needed, NPO Ppx - SCDs Code - Full Dispo - Admit to medical Present on Admission?: Yes Admission and Anticipated Discharge Date Admission Date: January 13, 2020 History of Present Illness Chief Complaint: Abdominal pain Primary Care Provider: SHELTON Perkins Miranda Allred is a 74yo female presenting with acute onset severe abdominal pain that started today around 12:00. Pain was bandlike across upper abdomen with associated nausea and chills. . Multiple episodes of non-bloody emesis. +BM earlier today, soft, non-bloody. +mild abdominal distention No additional complaints at this time. ER Course: Tylenol, Ceftriaxone, Dilaudid, Zofran Allergies Allergy/AdvReac Type Severity Reaction Status Date / Time orange (food color) Allergy Intermediate Hives Verified 01/13/20 21:20 yellow dye Allergy Intermediate Hives Verified 01/13/20 21:20 aspirin Allergy Mild HIVES Verified 01/13/20 21:20 Home Medications Home Medications Medication Instructions Recorded Confirmed Type alendronate 70 mg tablet See Rx Instructions .ROUTE 02/28/19 01/13/20 Rx .COMPLEX #4 tablet ferrous sulfate 325 mg PO QAM #30 tab 05/04/19 01/13/20 Rx atorvastatin 80 mg tablet 80 mg PO HS #90 tab 05/13/19 01/13/20 Rx paroxetine HCl 20 mg tablet 20 mg PO DAILY #90 tab 05/13/19 01/13/20 Rx lisinopril 20 mg tablet 20 mg PO DAILY #30 tab 08/21/19 01/13/20 Rx insulin syringe-needle U-100 1 mL #100 ea 08/30/19 Rx 27 gauge x 1/2" dulaglutide 0.75 mg/0.5 mL See Rx Instructions .ROUTE 12/12/19 01/13/20 Rx subcutaneous pen injector .COMPLEX #2 milliliter cyanocobalamin (vitamin B-12) 1,000 mcg PO DAILY 01/13/20 01/13/20 History [Vitamin B-12] gabapentin 200 mg PO HS 01/13/20 01/13/20 History insulin aspart U-100 [Novolog 10 unit SUBCUT BID 01/13/20 01/13/20 History U-100 Insulin aspart] insulin glargine [Lantus U-100 45 units SQ BID 01/13/20 01/13/20 History Insulin] metformin 1,000 mg PO BID 01/13/20 01/13/20 History Past Med/Surg History Medical History Bronchitis Diabetes Dyslipidemia Hypertension Osteoporosis Surgical History History of appendectomy History of bladder repair surgery History of hysterectomy History of repair of rotator cuff History of shoulder surgery Family History Father Myocardial infarction Diabetes Mother Cancer Other Cardiac disorder Denies family history of Ovarian cancer Prostate cancer Breast cancer Colorectal cancer Social History (Reviewed 01/13/20 @ 23:58 by FRANCHESCA Orozco Smoking Status: Never smoker Second Hand Exposure: No; Do You Dip or Chew Tobacco: No; Tobacco Cessation Education Requested by Patient: No Hx Alcohol Use: No Hx Substance Use: No Preferred Language: Malian Communication Ability: Effective 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 Beliefs That Will Affect Care: None marital status: / Current Living Situation: Family Current Living Situation Comment: son and two dogs current occupational status: retired How many Children do You have: 3 Other Information That Helps Us Care for You: No Feels Safe at Home: Yes Safety Concerns: Feels Safe At This Time caffeine: Yes Dental Care, Regularly: No Seatbelt Use: always Sunscreen Use: Yes Assistive Devices: None Review of Systems Review of Systems: All systems reviewed & are unremarkable except as noted in HPI & below No fever, cough, SOB, CP No Covid-19 concerns Physical Exam Physical Exam: General: patient resting comfortably, NAD, non-toxic in appearance, AA&O x 4 Skin: warm, dry, intact, no rashes or lesions HEENT: NC/AT, PERRL, EOMI, anicteric sclera, conjunctiva without injection, external ear normal to inspection and nontender, nares patent, moist mucus membranes, dentition intact, no oropharyngeal lesions, neck supple, trachea midline, no LAD, no thyromegaly, no JVD Heart: +S1/S2, regular, no m/r/g Lungs: equal air entry bilaterally, no rales/rhonchi/wheezes Abd: +lower abdominal surgical scarring, +BS diminished, soft, mildly distended and tympanic to percussion, NT, no masses/organomegaly/ascites Ext: warm, 2+ pulses in UE/LE bilaterally, no clubbing/cyanosis or edema Neuro: nonfocal, patient AA&O x 4, speech intact, no facial droop, moving all extremities on command with equal strength 5/5 Results & Data Results & Data ([facility]) Vital Signs (Past 12 Hours) Vital Signs Temp Pulse Pulse Pulse Resp BP BP 01/14/20 01:35 37.0 C 73 14 01/14/20 01:01 36.9 C 81 20 171/67 H 01/14/20 00:23 73 19 154/61 H 01/13/20 23:25 69 18 141/75 H 01/13/20 23:24 70 15 141/75 H 01/13/20 21:35 68 20 183/82 H 01/13/20 21:32 71 18 01/13/20 20:34 36.5 C 71 18 177/79 H BP Pulse Ox 01/14/20 01:35 171/67 H 99 01/14/20 01:01 95 01/14/20 00:23 96 01/13/20 23:25 95 01/13/20 23:24 97 01/13/20 21:35 96 01/13/20 21:32 94 01/13/20 20:34 93 Laboratory Results Lab Results 01/13/20 01/13/20 01/13/20 Range/Units 21:05 21:10 21:10 WBC 8.43 (4.8-10.8) K/uL RBC 4.40 (4.2-5.4) M/uL Hgb 13.1 (12.0-16.0) g/dL Hct 40.2 (37-47) % MCV 91.4 (80-100) fL MCH 29.8 (25-34) pg MCHC 32.6 (32-36) g/dL RDW Std Deviation 47.5 H (36.4-46.3) fL RDW Coeff of Pauly 14.1 (11.5-14.5) % Plt Count 237 (130-400) K/uL MPV 10.6 H (7.4-10.4) fL Immature Gran % (Auto) 0.2 % Neut % (Auto) 88.1 % Lymph % (Auto) 6.3 % [place] % (Auto) 5.1 % Eos % (Auto) 0.2 % Baso % (Auto) 0.1 % Neut # (Auto) 7.42 H (1.4-6.5) K/uL Lymph # (Auto) 0.53 L (1.2-3.4) K/uL [place] # (Auto) 0.43 (0.11-0.59) K/uL Eos # (Auto) 0.02 (0-0.5) K/uL Baso # (Auto) 0.01 (0-0.2) K/uL Immature Gran # (Auto) 0.02 (0.00-0.02) K/uL Sodium 138 (136-145) mmol/L Potassium 4.4 (3.5-5.1) mmol/L Chloride 103 (98-107) mmol/L Carbon Dioxide 27 (21-32) mmol/L Anion Gap 8.0 (3-11) BUN 24 H (7-18) mg/dl Creatinine 1.50 H (0.6-1.2) mg/dl Est Cr Clr Drug Dosing 32.7 ml/min Est GFR ( Amer) 38.8 Est GFR (Non-Af Amer) 33.5 BUN/Creatinine Ratio 15.7 (10-20) Glucose 132 H (70-99) mg/dl Calcium 10.2 H (8.5-10.1) mg/dl Phosphorus 3.6 (2.5-4.9) mg/dl Magnesium 2.4 (1.8-2.4) mg/dl Total Bilirubin 0.9 (0.2-1) mg/dl AST 30 (15-37) U/L ALT 16 (12-78) U/L Alkaline Phosphatase 110 (45-117) U/L Total Creatine Kinase 167 (26-192) U/L Troponin I < 0.015 (0-0.045) ng/ml Total Protein 8.7 H (6.4-8.2) gm/dl Albumin 4.4 (3.4-5.0) gm/dl Globulin 4.3 H (2.5-4.0) gm/dl Albumin/Globulin Ratio 1.0 (0.9-2) Lipase 171 (73-393) U/L Urine Color Yellow Urine Appearance Cloudy A (Clear) Urine pH 5.0 (4.5-7.5) Ur Specific [place] 1.025 (1.000-1.030) Urine Protein 1+ H (Negative) Urine Glucose (UA) Negative (Negative) Urine Ketones Trace H (Negative) Urine Blood Negative (Negative) Urine Nitrite Negative (Negative) Urine Bilirubin Negative (Negative) Urine Urobilinogen Negative (Negative) Ur Leukocyte Esterase 1+ H (Negative) Urine WBC (Auto) >30 H (0-5) /hpf Urine RBC (Auto) 0-4 (0-4) /hpf U Hyaline Cast (Auto) 10-30 H (0-5) /lpf U Epithel Cells (Auto) >30 H (0-5) /lpf Urine Bacteria (Auto) 2+ H (Negative) Diagnostic Findings US Gallbladder: Per STAT-rad - unremarkable gallbladder. No gallstones. No sonographic Galloway's sign. The CBD measures 5mm. Unremarkable liver. Patent main portal vein with appropriate hepatopetal flow. Visualized pancreas is u nremarkable. Right kidney is unremarkable. No hydronephrosis. CT Abdomen/Pelvis with contrast: Per STAT-rad - Comparison 05/01/19. Suspicious for SBO wtih decompressed distal SB and possible transition point in the right lower abdomen. Mild thickening of the distal small bowel which could indicate superimposed enteritis. Trace pelvic and interloop ascites. No loculated fluid collection. Mild colonic diverticulosis. No CT evidence for diverticulitis. Hysterectomy. Fat containing ventral abdominal wall hernia. ECG Additional Comments: NSR at 68, RBBB, no acute ischemic changes Code Status & VTE Plan VTE Prophylaxis Plan VTE Prophylaxis will be ordered: Yes PG Care Time/CCT Total # of Minutes Spent Total Time Spent with Patient: Total time spent is greater than 50% in coordination of care (as documented) at patient's floor/unit and/or counseling patient: Coding Level of Care Code 83617 Initial Inpt Care Lvl 3 Diagnoses SBO (small bowel obstruction) K56.609 Acute UTI N39.0 Diabetes mellitus type 2 in obese E11.69; E66.9 Impaired renal function N28.9 Hypertension I10 Hypertension type: essential hypertension Dyslipidemia E78.5 Depression F32.9 Depression Type: unspecified (1) Hypertension Hypertension type: essential hypertension Qualified Code(s): I10 - Essential (primary) hypertension (2) Depression Depression Type: unspecified Qualified Code(s): F32.9 - Major depressive disorder, single episode, unspecified
[2020-01-14] MEDS: INSULIN ASPART 100 UNITS/ML 3 ML PEN SC SCH ×3 (06:16→17:45)
--- NOTE | 2020-01-14 06:45 | Ultrasound Report ---
US abdomen limited HISTORY: 74 years-old Female Pt c/o RUQ abd pain acute right upper quadrant abdominal pain with vomi ting COMPARISON: CT abdomen and pelvis of same day TECHNIQUE: Multiple real-time sonographic images of the abdominal right upper quadrant were obtained assessing grayscale appearance and color flow FINDINGS: The visualized pancreas appears unremarkable. The liver is within normal limits. Unremarkable gallbla dder without shadowing cholelithiasis, wall thickening or pericholecystic fluid. Negative sonographic Galloway's sign. Patent main portal vein. Normal common bile duct, 4 mm. The imaged right kidney is un remarkable. IMPRESSION: Unremarkable right upper quadrant abdominal ultrasound. ACT 112: Negative or not required by law. The above report was generated using voice recognition software. It may contain grammatical, syntax o r spelling errors. Electronically signed by: Jasson Reveles M.D. 01/14/2020 6:44 AM
--- NOTE | 2020-01-14 07:17 | CT Scan Report ---
ABDOMEN AND PELVIS CT WITH IV CONTRAST CT DOSE: 1477.98 mGy.cm HISTORY: Acute right upper quadrant abdominal pain Pt c/o RUQ abd pain TECHNIQUE: Multiaxial CT images of the abdomen and pelvis were performed following the IV administrat ion of 93 cc of Optiray 320, A dose lowering technique was utilized adhering to the principles of AL MARIEL. COMPARISON STUDY: Right upper quadrant abdominal ultrasound of same day, CT abdomen pelvis 05/01/2019 FINDINGS: Mitral annular and coronary arterial calcifications. No pericardial effusion. 10 mm nodular opacity of the inferior segment lingula is unchanged suggestive of scarring with atelectasis. There is no pneumatosis or pneumoperitoneum. The spleen, pancreas, adrenal glands and gallbladder are unrem arkable. There is patency of the hepatic and portal veins. There are a few subcentimeter bilateral re nal hypodensities are too small to characterize however favor renal cysts. No obstructive uropathy. P artial distention of the urinary bladder with mild wall thickening and perivesicular stranding. Linea r calcifications are noted within the region of the bladder neck, unchanged. Hysterectomy. Trace free fluid within the dependent pelvis. No adnexal mass lesions. Moderate to extensive mixed plaque of th e abdominal aorta without aneurysm. No adenopathy. Mild colonic diverticulosis without acute diverticulitis. Appendix not diagnostically visualized. Th e majority of the colon is decompressed. Mild residual enteric contrast is noted within the large bow el. Terminal ileum is also decompressed. There is an apparent transition point noted involving a loop of ileum within the lateral right midabdomen on image 217 series 3. Additional additionally, there a re a few loops of decompressed bowel seen proximally with areas of mild wall thickening and interloop edema. Small fat filled ventral abdominal wall hernias measure up to 2.0 cm. Degenerative changes of the spine, pelvis and hips. No suspicious bone lesions. Lumbar levoscoliosis. IMPRESSION: 1. Multiple and fluid-filled mildly dilated loops of small bowel are noted with decompressed terminal ileum and colon. There is an apparent transition point involving a loop of ileum within the lateral right midabdomen. Findings are suggestive of a low-grade small bowel obstruction. Trace abdominal pel nancy ascites with areas of mild interloop edema and mild small bowel wall thickening are likely reacti ve. 2. No pneumatosis or pneumoperitoneum. 3. Colonic diverticulosis. ACT 112: Negative or not required by law. The above report was generated using voice recognition software. It may contain grammatical, syntax o r spelling errors. Electronically signed by: Jasson Reveles M.D. 01/14/2020 7:15 AM
[2020-01-14 07:23] LABS: Eosinophils # (auto) 0.02 K/uL (0-0.5); Eosinophils % (auto) 0.3 %; Hematocrit (blood only) 34.4 % (37-47); Immature Granulocytes # (auto) 0.01 K/uL (0.00-0.02); Immature Granulocytes % (auto) 0.1 %; Mean Corpuscular Hemoglobin 29.1 pg (25-34); Mean Platelet Volume 10.4 fL (7.4-10.4); Monocytes # (auto) 0.72 K/uL (0.11-0.59); Monocytes % (auto) 10.5 %; Neutrophils # (auto) 5.01 K/uL (1.4-6.5); Neutrophils % (auto) 73.1 %; Platelet Count 195 K/uL (130-400); RDW Coefficient of Variation 14.3 % (11.5-14.5); RDW Standard Deviation 47.2 fL (36.4-46.3); Red Blood Count 3.78 M/uL (4.2-5.4); White Blood Count 6.86 K/uL (4.8-10.8)
[2020-01-14 07:31] LABS: Prothrombin Time 10.9 Seconds (9.0-12.0)
[2020-01-14 07:55] LABS: BUN Creatinine Ratio 14.8 (10-20); Calcium 8.7 mg/dl (8.5-10.1); Creatinine Clr Calc Pharmacy 36.4 ml/min; Est GFR (African American) 44.9; Est GFR (Non-African American) 38.7; Potassium 4.4 mmol/L (3.5-5.1)
--- NOTE | 2020-01-14 07:57 | XRay Report ---
KUB HISTORY: NG tube placement. COMPARISON: Abdomen and pelvis CT 01/13/2020. FINDINGS: Nasogastric tube terminates in the fundus of the stomach. A few mildly dilated gas-filled l oops of small bowel within the right side the abdomen consistent with the patient's small bowel obstr uction. There is residual contrast within the urinary system from the recent CT examination. No erick l calculi. No ureteral calculi. No pneumoperitoneum or pneumatosis. IMPRESSION: Nasogastric tube terminates in the fundus of the stomach. ACT 112: Negative or not required by law. Electronically signed by: Jerel Slade M.D. 01/14/2020 7:55 AM
--- NOTE | 2020-01-14 08:02 | XRay Report ---
XR chest 1V portable CLINICAL HISTORY: Atypical chest pain. COMPARISON STUDY: Chest radiograph May 02, 2019. FINDINGS: Lung volumes are normal. Lungs are clear. There is no pneumothorax or pleural effusion. Car diac size is normal. Mediastinal contours are normal. There is no evidence for pulmonary edema. There is mild elevation of the right hemidiaphragm. IMPRESSION: No acute cardiopulmonary findings. ACT 112: Negative or not required by law. Electronically signed by: Rian Keith M.D. 01/14/2020 8:01 AM
--- NOTE | 2020-01-14 09:07 | XRay Report ---
KUB HISTORY: Follow up study in a patient with small bowel obstruction ?SBO COMPARISON: KUB 01/13/2020, CT abdomen and pelvis 01/13/2020 FINDINGS: No pneumatosis or pneumoperitoneum identified. Distal contrast in the urinary bladder and r enal collecting systems. Interval removal of the enteric tube. Dilated air-filled loops of small sara l within the central abdomen are redemonstrated measuring up to 3.8 cm which appears similar to rosette rison.. No urolith or acute fracture. Mild lumbar levoscoliosis. IMPRESSION: 1. Interval removal of the enteric tube. 2. Persistent dilated air-filled loops of small bowel are suggestive of ongoing obstruction. 3. No pneumoperitoneum identified. ACT 112: Negative or not required by law. The above report was generated using voice recognition software. It may contain grammatical, syntax o r spelling errors. Electronically signed by: Jasson Reveles M.D. 01/14/2020 9:06 AM
[2020-01-14] MEDS: INSULIN GLARGINE SOLOSTAR 100 UNITS/ML 3 ML PEN SQ SCH ×2 (09:44→22:02)
[2020-01-14] MEDS: lisinopril 20 MG TAB PO SCH (11:14)
[2020-01-14] MEDS: PARoxetine HCL 20 MG TAB PO SCH (11:14)
[2020-01-14] MEDS: CYANOCOBALAMIN 500 MCG TABLET (VITAMIN B-12) PO SCH (11:14)
--- NOTE | 2020-01-14 12:52 | Electrocardiogram Report ---
Test Reason : Blood Pressure : / mmHG Vent. Rate : 068 BPM Atrial Rate : 068 BPM P-R Int : 158 ms QRS Dur : 124 ms QT Int : 452 ms P-R-T Axes : 058 008 039 degrees QTc Int : 480 ms Normal sinus rhythm Right bundle branch block Abnormal ECG Confirmed by Freddie Slater ([id number]) on 01/14/2020 12:52:12 PM Referred By: REFERRED SELF Confirmed By:Robin Slater
[2020-01-14] MEDS ORDERED: Nursing to Pharmacy Communication SCH (17:45)
--- NOTE | 2020-01-14 19:09 | Communication Note ---
Date of Service: January 14, 2020 NG tube unfortunately came out this am inadvertently. Despite such no vomiting since then. Passing minimal flatus. Bloating improved. VSS exam: gen - obese, NAD mouth - MM slightly dry neck - no JVD heart - RRR, s1 s2 lungs - CTA b/l, minimal rales bases abd - distended, BS+, tender epigastric region, no HSM ext - no edema CT, labs reviewed A/P: SBO. Conservative Rx - bowel rest, IVF. Appreciate general surgery input. Arnold Guevara MD
[2020-01-14] MEDS: ATORVASTATIN 40 MG TAB PO SCH (20:36)
[2020-01-14] MEDS: GABAPENTIN 100 MG CAP PO SCH (20:36)
[2020-01-14] MEDS: cefTRIAXone SODIUM 2,000 MG in DEXTROSE 5% 50 ML IV SCH (20:38)
[2020-01-15] MEDS: INSULIN ASPART 100 UNITS/ML 3 ML PEN SC SCH ×4 (00:16→18:51)
[2020-01-15] MEDS: SODIUM CHLORIDE 0.9% 1000ML 1,000 ML IV SCH ×4 (00:21→23:51)
--- NOTE | 2020-01-15 07:44 | Surgery Progress Note ---
Date of Service January 15, 2020 Assessment & Plan (1) SBO (small bowel obstruction): Patient here with SBO NGT inadvertently fell out yesterday morning Patient has been NPO with IVF; denies any nausea/vomiting. Okay to hold off on replacing ngt unless develops worsening s/s She is passing some flatus, no BM yet Still mildly tender in abdomen Obtain KUB this morning for further evaluation Plan on continued conservative management for now until return of meaningful bowel function Pt seen and examined with Dr. Holland Admission and Anticipated Discharge Date Admission Date: January 13, 2020 Subjective Patient says she is starting to feel somewhat better than admission, but not completely great. She says she is passing some gas. No BM yet. Denies nausea/vomiting. States she is starting to feel hungry. Physical Exam Physical Exam: awake/alert Respiratory: normal respiratory effort Gastrointestinal (Abdomen): Inspection/Auscultation: + abdomen distended (mild) Percussion/Palpation: + abdomen tender (some ttp around daniel-umbilical hernia and L sided mid abd) and abdomen soft Results & Data ([facility]) Vital Signs (Past 12 Hours) Vital Signs Temp Pulse Resp BP Pulse Ox 01/14/20 22:45 36.9 C 74 16 162/82 H 90 PG Care Time/CCT Total # of Minutes Spent Total Time Spent with Patient: Total time spent is greater than 50% in coordination of care (as documented) at patient's floor/unit and/or counseling patient: Coding Level of Care Code 79766 Subseq Hosp Care Lvl 1 Diagnoses SBO (small bowel obstruction) K56.609
[2020-01-15] MEDS: PARoxetine HCL 20 MG TAB PO SCH (07:53)
[2020-01-15] MEDS: CYANOCOBALAMIN 500 MCG TABLET (VITAMIN B-12) PO SCH (07:53)
[2020-01-15] MEDS: lisinopril 20 MG TAB PO SCH (07:54)
--- NOTE | 2020-01-15 08:42 | XRay Report ---
KUB CLINICAL HISTORY: Follow-up small bowel obstruction. FINDINGS: 2 AP, portable, supine abdominal radiographs are compared to study dated 01/14/2020 and terri elated with abdominal CT dated 01/13/2020. There is evidence of persistent small bowel obstruction. Di stended and gas-filled loops of small bowel measure up to 4 cm in diameter. No evidence of intraperit weston free air is seen on these supine images. There are no abnormal abdominal calcifications. The sk eletal structures are osteopenic and appear intact. Moderate lumbosacral spondylosis is noted. IMPRESSION: Persistent small bowel obstruction. Electronically signed by: Keith Marquez M.D. 01/15/2020 8:41 AM
[2020-01-15 10:47] LABS: BUN Creatinine Ratio 14.3 (10-20); Creatinine Clr Calc Pharmacy 43.6 ml/min; Est GFR (African American) 55.9; Est GFR (Non-African American) 48.2; Magnesium 2.1 mg/dl (1.8-2.4); Potassium 4.5 mmol/L (3.5-5.1)
[2020-01-15] MEDS: ACETAMINOPHEN 1000 MG/100 ML IV IV PRN (16:34)
--- NOTE | 2020-01-15 20:44 | Hospitalist Progress Note ---
Date of Service January 15, 2020 Assessment & Plan (1) SBO (small bowel obstruction): Likely on basis of adhesions. Clinically and radiographically ongoing. Cont NPO status. Cont IV fluids. Ambulation. Gen surg consult/recs appreciated. Conservative measures for now. (2) Acute UTI: 2nd GNR. Cont IV rocephin. Follow culture. (3) Diabetes mellitus type 2 in obese: Controlled. While NPO hold lantus. Cont novolog correction. (4) Hypertension: Running high despite monotherapy w/ BRAD Add norvasc 2.5mg HS. Follow. (5) Dyslipidemia: Continue Atorvastatin 80mg po qHS (6) Depression: Continue Paroxetine 20mg po daily (7) Acute kidney injury: Peak Cr 1.5, now 1.1 s/p IV fluids. BMP am. Baseline Cr 1 to 1.1. (8) Chronic kidney disease, stage 3a: baseline CrCl 40s bmp in am ALISIA improved (9) Morbid obesity with BMI of 40.0-44.9, adult: BMI about 40 (10) DVT prophylaxis: add lovenox in am daughter updated at bedside Admission and Anticipated Discharge Date Admission Date: January 13, 2020 Subjective patient without nausea or emesis. no abd pain. passing minimal flatus. no stool. ambulating hallways. daughter at bedside - multiple questions about status & plan of care. Review of Systems Constitutional: no fever Respiratory: no cough and no dyspnea Cardiovascular: no chest pain Gastrointestinal: + bloating; no abdominal pain Physical Exam Constitutional: + morbidly obese; no acute distress and no altered mental status ENMT: external ear and nose normal, oropharynx normal Respiratory: normal respiratory effort, lungs clear to auscultation Auscultation: + rales; no wheezes Cardiovascular: Rate/Rhythm: regular rate and regular rhythm Heart Sounds: normal S1 and normal S2; no murmur Vessels: posterior tibial pulses present and dorsalis pedis pulses present; no JVD Extremities: no edema Gastrointestinal (Abdomen): Inspection/Auscultation: + abdomen distended and + hypoactive bowel sounds Percussion/Palpation: abdomen nontender and no hepatosplenomegaly Psychiatric: A+Ox3, euthymic affect Results & Data Results & Data ([facility]) Vital Signs (Past 12 Hours) Vital Signs Temp Pulse Resp BP Pulse Ox 01/15/20 15:00 36.9 C 64 20 173/72 H 93 Laboratory Results Laboratory Results - last 24 hr 01/14/20 01/14/20 01/15/20 20:59 23:58 06:02 Sodium Potassium Chloride Carbon Dioxide Anion Gap BUN Creatinine Est Cr Clr Drug Dosing Est GFR ( Amer) Est GFR (Non-Af Amer) BUN/Creatinine Ratio Glucose POC Glucose 90 101 H 114 H Calcium Magnesium 01/15/20 01/15/20 01/15/20 10:00 12:12 18:13 Sodium 142 Potassium 4.5 Chloride 111 H Carbon Dioxide 27 Anion Gap 4.0 BUN 16 Creatinine 1.11 Est Cr Clr Drug Dosing 43.6 Est GFR ( Amer) 55.9 Est GFR (Non-Af Amer) 48.2 BUN/Creatinine Ratio 14.3 Glucose 121 H POC Glucose 116 H 115 H Calcium 8.0 L Magnesium 2.1 PG Care Time/CCT Total # of Minutes Spent Total Time Spent with Patient: Total time spent is greater than 50% in coordination of care (as documented) at patient's floor/unit and/or counseling patient: Coding Level of Care Code 02595 Subseq Hosp Care Lvl 2 Diagnoses SBO (small bowel obstruction) K56.609 Acute UTI N39.0 Diabetes mellitus type 2 in obese E11.69; E66.9 Hypertension I10 Hypertension type: essential hypertension Dyslipidemia E78.5 Depression F32.9 Depression Type: unspecified Acute kidney injury N17.9 Chronic kidney disease, stage 3a N18.31 Morbid obesity with BMI of 40.0-44.9, adult E66.01; Z68.41 DVT prophylaxis Z29.9 (1) Depression Depression Type: unspecified Qualified Code(s): F32.9 - Major depressive disorder, single episode, unspecified (2) Hypertension Hypertension type: essential hypertension Qualified Code(s): I10 - Essential (primary) hypertension
[2020-01-15] MEDS ORDERED: amLODIPine BESYLATE 5 MG TAB PO SCH (21:00)
[2020-01-15] MEDS: GABAPENTIN 100 MG CAP PO SCH (21:05)
[2020-01-15] MEDS: ATORVASTATIN 40 MG TAB PO SCH (21:05)
[2020-01-15] MEDS: cefTRIAXone SODIUM 2,000 MG in DEXTROSE 5% 50 ML IV SCH (21:18)
[2020-01-16] MEDS: INSULIN ASPART 100 UNITS/ML 3 ML PEN SC SCH ×5 (00:09→23:58)
[2020-01-16 06:48] LABS: BUN Creatinine Ratio 17.7 (10-20); Calcium 7.9 mg/dl (8.5-10.1); Creatinine Clr Calc Pharmacy 55.6 ml/min; Est GFR (Non-African American) 64.7
[2020-01-16] MEDS: ACETAMINOPHEN 1000 MG/100 ML IV IV PRN (07:43)
--- NOTE | 2020-01-16 07:46 | Surgery Progress Note ---
Date of Service January 16, 2020 Assessment & Plan (1) SBO (small bowel obstruction): At this point we will insert an NG tube and obtain an upper GI with small bowel follow-through pending those results further recommendations will be made but hopefully the contrast from the upper GI small bowel follow-through may help resolve her bowel obstruction if not she may need surgery this was discussed with the patient Admission and Anticipated Discharge Date Admission Date: January 13, 2020 Subjective She is experiencing more abdominal discomfort she has not passed any flatus or had any bowel movement Physical Exam Physical Exam: Up and around walking without any difficulty in fact she try to walk as much as possible to try to stimulate her GI function with no results The abdomen is more distended a little bit more generalized guarding in the epigastric area Results & Data ([facility]) Vital Signs (Past 12 Hours) Vital Signs Temp Pulse Pulse Resp BP BP Pulse Ox 01/15/20 23:27 36.7 C 61 20 162/83 H 96 01/15/20 21:08 75 168/74 H PG Care Time/CCT Total # of Minutes Spent Total Time Spent with Patient: Total time spent is greater than 50% in coordination of care (as documented) at patient's floor/unit and/or counseling patient: Coding Level of Care Code 94419 Subseq Hosp Care Lvl 3 Diagnoses SBO (small bowel obstruction) K56.609
[2020-01-16] MEDS: SODIUM CHLORIDE 0.9% 1000ML 1,000 ML IV SCH ×2 (07:56→15:14)
[2020-01-16] MEDS: PARoxetine HCL 20 MG TAB PO SCH (07:59)
[2020-01-16] MEDS ORDERED: lisinopril 20 MG TAB NG SCH (09:00)
[2020-01-16] MEDS ORDERED: CYANOCOBALAMIN 500 MCG TABLET (VITAMIN B-12) PO SCH (09:00)
[2020-01-16] MEDS: ONDANSETRON INJ 2 MG/ML 2 ML VIAL IV PRN ×2 (10:19→13:55)
[2020-01-16] MEDS: HEPARIN SOD 5,000 UNIT/0.5 ML VIAL SQ SCH ×2 (13:58→21:39)
--- NOTE | 2020-01-16 14:41 | Hospitalist Progress Note ---
Date of Service January 16, 2020 Assessment & Plan (1) SBO (small bowel obstruction): Unfortunately her SBO did not resolve with conservative measures. She worsened overnight, prompting trip to OR with Dr Holland today. s/p ex lap with DAVID. Adhesions were found in ileum where her transition point was. Bowel was all viable based on op note. Defer all SBO post-op management to gen surg. Appreciate their efforts & assistance. Repeat labs in am. (2) Acute UTI: 2nd klebsiella. Has received rocephin. Rocephin d/c, now on cefoxitin for SBO purposes but this should cover UTI as well. (3) Diabetes mellitus type 2 in obese: Controlled. While NPO hold lantus. Cont novolog correction. (4) Hypertension: While NPO with NG tube in place -- may need IV hydralazine or IV BRAD. Follow. (5) Dyslipidemia: HOLD atorvastatin (6) Depression: Will need to hold paroxetine while NPO (7) Acute kidney injury: Peak Cr 1.5, now 0.8 with IV fluids. BMP am. Baseline Cr 1 to 1.1. (8) Chronic kidney disease, stage 3a: baseline CrCl 40s bmp in am ALISIA improved/resolved (9) Morbid obesity with BMI of 40.0-44.9, adult: BMI about 40 (10) DVT prophylaxis: heparin 5000 TID daughter updated at bedside today x 2 Admission and Anticipated Discharge Date Admission Date: January 13, 2020 Subjective saw patient before she went to OR. she hadn't passed stool or flatus overnight despite ambulating, etc. abd distension worse. surgery this am placed NG tube. she was in the midst of completing UGI series w/ SBFT and felt very nauseous. as the UGI series wore on she felt worse and worse; Dr Holland felt it would be best to take her to OR for exploratory surgery. Review of Systems Constitutional: no fever and no chills Respiratory: no dyspnea and no dyspnea on exertion Cardiovascular: no chest pain and no orthopnea Gastrointestinal: + abdominal pain, + bloating, + nausea and + vomiting Physical Exam Constitutional: + morbidly obese; no acute distress and no altered mental status ENMT: external ear and nose normal, oropharynx normal Respiratory: normal respiratory effort, lungs clear to auscultation Auscultation: no rales and no wheezes Cardiovascular: Rate/Rhythm: regular rate and regular rhythm Heart Sounds: normal S1 and normal S2; no murmur Vessels: posterior tibial pulses present and dorsalis pedis pulses present; no JVD Extremities: no edema Gastrointestinal (Abdomen): Inspection/Auscultation: + abdomen distended (Much worse today) and + hypoactive bowel sounds Percussion/Palpation: abdomen nontender and no hepatosplenomegaly Psychiatric: A+Ox3, euthymic affect Results & Data Results & Data ([facility]) Vital Signs (Past 12 Hours) Vital Signs Temp Pulse Resp BP Pulse Ox 01/16/20 07:48 36.7 C 69 18 173/69 H 96 Laboratory Results Laboratory Results - last 24 hr 01/15/20 01/15/20 01/16/20 18:13 23:54 04:37 Sodium Potassium Chloride Carbon Dioxide Anion Gap BUN Creatinine Est Cr Clr Drug Dosing Est GFR ( Amer) Est GFR (Non-Af Amer) BUN/Creatinine Ratio Glucose POC Glucose 115 H 96 100 H Calcium 01/16/20 01/16/20 01/16/20 05:52 06:09 12:16 Sodium 141 Potassium 4.0 Chloride 112 H Carbon Dioxide 23 Anion Gap 7.0 BUN 15 Creatinine 0.87 Est Cr Clr Drug Dosing 55.6 Est GFR ( Amer) 75.0 Est GFR (Non-Af Amer) 64.7 BUN/Creatinine Ratio 17.7 Glucose 98 POC Glucose 95 96 Calcium 7.9 L PG Care Time/CCT Total # of Minutes Spent Total Time Spent with Patient: Total time spent is greater than 50% in coordination of care (as documented) at patient's floor/unit and/or counseling patient: Coding Level of Care Code 19668 Subseq Hosp Care Lvl 2 Diagnoses SBO (small bowel obstruction) K56.609 Acute UTI N39.0 Diabetes mellitus type 2 in obese E11.69; E66.9 Hypertension I10 Hypertension type: essential hypertension Dyslipidemia E78.5 Depression F32.9 Depression Type: unspecified Acute kidney injury N17.9 Chronic kidney disease, stage 3a N18.31 Morbid obesity with BMI of 40.0-44.9, adult E66.01; Z68.41 DVT prophylaxis Z29.9 (1) Depression Depression Type: unspecified Qualified Code(s): F32.9 - Major depressive disorder, single episode, unspecified (2) Hypertension Hypertension type: essential hypertension Qualified Code(s): I10 - Essential (primary) hypertension
--- NOTE | 2020-01-16 16:14 | Anesthesiology Consultation ---
Date of Service January 16, 2020 Assessment & Plan (1) Encounter for pre-operative examination: Chart Review Chart Review: Acceptable Risk for Surgery (urgent surgery - COVID pending) History Surgery Operation Date: 01/16/20 09:30 Proposed Procedures p Exploratory Laparotomy - Bowel Obstruction - Kenny Holland MD Height/Weight Height: 5 ft Weight: 91.8 kg Allergies Allergy/AdvReac Type Severity Reaction Status Date / Time orange (food color) Allergy Intermediate Hives Verified 01/13/20 21:20 yellow dye Allergy Intermediate Hives Verified 01/13/20 21:20 aspirin Allergy Mild HIVES Verified 01/13/20 21:20 Medications Home Medications Medication Instructions Recorded Confirmed Last Taken alendronate 70 mg tablet See Rx Instructions .ROUTE 02/28/19 01/13/20 01/09/20 .COMPLEX #4 tablet ferrous sulfate 325 mg PO QAM #30 tab 05/04/19 01/13/20 01/13/20 atorvastatin 80 mg tablet 80 mg PO HS #90 tab 05/13/19 01/13/20 01/12/20 paroxetine HCl 20 mg tablet 20 mg PO DAILY #90 tab 05/13/19 01/13/20 01/13/20 lisinopril 20 mg tablet 20 mg PO DAILY #30 tab 08/21/19 01/13/20 01/13/20 insulin syringe-needle U-100 1 mL #100 ea 08/30/19 Unknown 27 gauge x 1/2" dulaglutide 0.75 mg/0.5 mL See Rx Instructions .ROUTE 12/12/19 01/13/20 01/07/20 subcutaneous pen injector .COMPLEX #2 milliliter cyanocobalamin (vitamin B-12) 1,000 mcg PO DAILY 01/13/20 01/13/20 01/13/20 [Vitamin B-12] gabapentin 200 mg PO HS 01/13/20 01/13/20 01/12/20 insulin aspart U-100 [Novolog 10 unit SUBCUT BID 01/13/20 01/13/20 01/13/20 08:00 U-100 Insulin aspart] insulin glargine [Lantus U-100 45 units SQ BID 01/13/20 01/13/20 01/13/20 08:00 Insulin] metformin 1,000 mg PO BID 01/13/20 01/13/20 01/13/20 Active Medications Generic Name Dose Route Start Last Admin Trade Name Juan PRN Reason Stop Dose Admin Acetaminophen 1,000 mg 01/15/20 16:17 01/16/20 07:43 Acetaminophen 1000 Mg/100 Ml Iv IV 01/18/20 16:16 1,000 mg Q8H PRN Administration pain Amlodipine Besylate 2.5 mg 01/15/20 21:00 01/15/20 21:09 Amlodipine Besylate 5 Mg Tab PO 02/14/20 20:59 2.5 mg HS NISHI Administration Cyanocobalamin 1,000 mcg 01/16/20 09:00 01/16/20 07:57 Cyanocobalamin 500 Mcg Tablet (Vitamin B-12) PO 02/15/20 08:59 1,000 mcg DAILY NISHI Administration Gabapentin 200 mg 01/14/20 21:00 01/15/20 21:05 Gabapentin 100 Mg Cap PO 02/13/20 20:59 200 mg HS NISHI Administration Heparin Sodium (Porcine) 5,000 units 01/16/20 14:00 01/16/20 13:58 Heparin Sod 5,000 Unit/0.5 Ml Vial SQ 02/15/20 13:59 5,000 units Q8 NISHI Administration Ceftriaxone Sodium 2,000 mg/ 70 mls @ 100 mls/hr 01/14/20 22:00 01/15/20 22:04 Dextrose IV 01/18/20 21:59 Infused Q24H NISHI Infusion Protocol Sodium Chloride 1,000 mls @ 125 mls/hr 01/14/20 17:45 01/16/20 15:14 Nss 1000ml IV 02/13/20 17:44 125 mls/hr .Q8H NISHI Administration Insulin Aspart 0 units 01/14/20 06:00 01/16/20 12:19 Insulin Aspart 100 Units/Ml 3 Ml Pen SC 02/13/20 05:59 Not Given Q6 NISHI Insulin Glargine 20 units 01/14/20 09:00 01/14/20 22:02 Insulin Glargine Solostar 100 Units/Ml 3 Ml Pen SQ 02/13/20 08:59 Not Given BID NISHI Lisinopril 20 mg 01/16/20 09:00 01/16/20 07:58 Lisinopril 20 Mg Tab NG 02/13/20 08:59 20 mg DAILY NISHI Administration Morphine Sulfate 2 mg 01/14/20 01:01 01/14/20 12:08 Morphine Sulfate 2 Mg/Ml Carp IV 01/28/20 01:00 2 mg Q4H PRN Administration Pain Ondansetron HCl 4 mg 01/14/20 01:01 01/16/20 13:55 Ondansetron Inj 2 Mg/Ml 2 Ml Vial IV 02/13/20 01:00 4 mg Q6H PRN Administration Nausea Paroxetine HCl 20 mg 01/14/20 09:00 01/16/20 07:59 Paroxetine Hcl 20 Mg Tab PO 02/13/20 08:59 20 mg DAILY NISHI Administration Past Medical History Medical History (Updated 01/16/20 @ 16:14 by Russell Garcia MD) Bronchitis Chronic kidney disease, stage 3a Depression Diabetes Dyslipidemia Hypertension Morbid obesity with BMI of 40.0-44.9, adult Osteoporosis SBO (small bowel obstruction) Past Family History Family History Father Myocardial infarction Diabetes Mother Cancer Other Cardiac disorder Denies family history of Ovarian cancer Prostate cancer Breast cancer Colorectal cancer Past Surgical History Surgical History History of appendectomy History of bladder repair surgery History of hysterectomy History of repair of rotator cuff History of shoulder surgery Social History Smoking Status: Never smoker Do You Dip or Chew Tobacco: No Hx Alcohol Use: No Hx Substance Use: No substance use type: does not use Physical Exam Vital Signs Last Vital Signs Temp 37.1 C 01/16/20 15:41 Pulse 71 01/16/20 15:41 Resp 19 01/16/20 15:41 BP 147/65 H 01/16/20 15:41 Pulse Ox 91 01/16/20 15:41 Testing Laboratory Results 01/14/20 06:52 01/16/20 05:52 PT 10.9 Seconds (9.0-12.0) 01/14/20 06:52 INR 1.0 (0.9-1.1) 01/14/20 06:52 Urine Color Yellow 01/13/20 21:05 Urine Appearance Cloudy (Clear) A 01/13/20 21:05 Urine pH 5.0 (4.5-7.5) 01/13/20 21:05 Ur Specific [place] 1.025 (1.000-1.030) 01/13/20 21:05 Urine Protein 1+ (Negative) H 01/13/20 21:05 Urine Glucose (UA) Negative (Negative) 01/13/20 21:05 Urine Ketones Trace (Negative) H 01/13/20 21:05 Urine Nitrite Negative (Negative) 01/13/20 21:05 Ur Leukocyte Esterase 1+ (Negative) H 01/13/20 21:05 Urine WBC (Auto) >30 /hpf (0-5) H 01/13/20 21:05 Urine RBC (Auto) 0-4 /hpf (0-4) 01/13/20 21:05 U Hyaline Cast (Auto) 10-30 /lpf (0-5) H 01/13/20 21:05 U Epithel Cells (Auto) >30 /lpf (0-5) H 01/13/20 21:05 Urine Bacteria (Auto) 2+ (Negative) H 01/13/20 21:05 01/13/20 21:05 Urine Culture - Final Urine,Clean Catch Klebsiella pneumoniae 01/16/20 01/16/20 01/16/20 12:16 06:09 04:37 POC Glucose 96 95 100 H Electrocardiogram Date: 01/13/20 Findings: + NSR @ (68) and + RBBB Chest X-Ray Date: 01/13/20 Findings: + NAD
[2020-01-16] MEDS ORDERED: ATROPINE SULFATE 0.1 MG/ML 10ML SYR IV PRN (17:28)
[2020-01-16] MEDS ORDERED: ONDANSETRON INJ 2 MG/ML 2 ML VIAL IV PRN (17:28)
[2020-01-16] MEDS ORDERED: HYDROmorphone INJ 1 MG/ML SYRINGE IV PRN (17:28)
[2020-01-16] MEDS ORDERED: fentaNYL citrate 100 MCG/2 ML VIAL ONE ×2 (17:29→18:27)
[2020-01-16] MEDS ORDERED: ROCURONIUM BROMIDE 10 MG/ML 5 ML VIAL IV ONE (17:29)
[2020-01-16] MEDS ORDERED: PROPOFOL IV EMULSION 10 MG/ML 20 ML VIAL IV ONE (17:29)
[2020-01-16] MEDS ORDERED: LIDOCAINE HCL 2% 2 ML VIAL/AMP(20MG/ML) INFIL ONE (17:29)
[2020-01-16] MEDS ORDERED: ONDANSETRON INJ 2 MG/ML 2 ML VIAL ONE ×2 (17:29→18:52)
[2020-01-16] MEDS ORDERED: cefOXitin 2,000 MG in DEXTROSE 5% 50 ML IV ONE (18:25)
[2020-01-16] MEDS ORDERED: ATROPINE SO4 1 MG/ML 1ML VIAL ONE (18:52)
[2020-01-16] MEDS ORDERED: SUCCINYLCHOLINE CHLORIDE 20 MG/ML 10 ML VIAL IV ONE (18:52)
[2020-01-16] MEDS ORDERED: GLYCOPYRROLATE 0.2 MG/ML VIAL ONE (18:52)
--- NOTE | 2020-01-16 19:07 | Post Operative Brief Note ---
PG Immediate Post Op with CF Date of Surgery January 16, 2020 Pre & Post Diagnosis Operation Date: 01/16/20 09:30 Pre-Op Diagnosis: Small Bowel Obstruction Post-Op Diagnosis: Small Bowel Obstruction I identified the patient and participated in the time-out.: Yes Procedure Operation Date: 01/16/20 09:30 Actual Procedures p Exploratory Laparotomy amd Lysis of Adhesions - Kenny Hollnad MD Surgeon Kenny Holland MD Wastewater Analyst Lab Analyst b Raheem wilcox Estimated Blood Loss 200 Findings Consistent with Post-Op Diagnosis Specimens Specimen Description: Culture 1. Catheter Urine Drains Hopson Catheter and [place] Drain (07/18")
--- NOTE | 2020-01-16 19:22 | Operative Report ---
PG Post Operative Report Pre & Post Diagnosis Operation Date: 01/16/20 09:30 Pre-Op Diagnosis: Small Bowel Obstruction Post-Op Diagnosis: Small Bowel Obstruction I identified the patient and participated in the time-out.: Yes Procedure Operation Date: 01/16/20 09:30 Actual Procedures p Exploratory Laparotomy amd Lysis of Adhesions - Kenny Holland MD The patient was brought into the operating theater general endotracheal anesthesia supine position Hopson catheter inserted timeout was recorded Covid protocol the abdomen was prepped byline solution properly draped systemic antibiotics given patient identified timeout was had made a small incision approximately 10 cm so in the midline supraumbilically deepened through subcutaneous tissue some fatty blood vessels were controlled with subcutaneous fat with electrocautery and we went onto the midline linea alba open the wrap and we were able to get into the peritoneum there were no adhesions were we first entered we then opened up the through whole length of the incision and could feel that the omentum was adherent to the anterior abdominal wall just around below the umbilical area since the patient had had a previous lower midline incision and hernia repaired from a previous hysterectomy at this point we found ourselves that we needed more room therefore we extended the incision more cephalad another 10 cm or so and then were able to free up the omentum to the point that we divided just proximal to the umbilical area where the patient had a small hernia on the omentum was adherent into the hernia which we resected and left the omentum partially in the hernial sac at this point we could see that the small bowel was dilated had some free fluid in the abdomen which were just nonpurulent serous slightly sanguinous and we evacuated that and then started milking the small bowel and eviscerated at approximately from the ligament of Treitz to its midportion we were able to enter feel a couple bands that were constricting it and actually probably in the distal area to the proximal ileum 1 band we can recently appreciated that was cutting but into the bowel but it was not compromising it and it really opened up once we had freed it there a few other areas similarly then we continue to milking out the dilated area to the distal area and were able then to identify that the terminal ileum was adherent to the retroperitoneal space approximately 10 to 12 cm proximal to the ileocecal valve there was not any obstruction it was just centered in that area therefore we freed it up avoiding the mesentery mostly in antimesenteric area once was this freed up we felt that we had pretty much the whole small bowel free of any adhesions and it certainly was viable initially was seem to be a little bit bluish in nature just from the distention but this was remedied by the time we were finishing this point we suctioned out the abdomen more significantly which is remaining some fluid and then we were able to position the NG tube I can feel it is 55 cm also of note when we were extended the incision cephalad we were below the xiphoid area but we did divide the falciform ligament and 2 bites of Jina able to ligated with 2-0 silk I elected to close the abdomen #1 PDS continuous fashion but did place a large retention suture #5 [place] that would be tied over a bolster. The linea alba was closed in a continuous fashion subcutaneous tissue was drained with a 5/8 11 inch [place] drain which was sutured proximally and distally incision with 3-0 silk tyron for skin edges at this point we placed a rubber bolsters in the retention sutures and tied it dressing was applied procedure was tolerated well by the patient estimated blood loss approximately 200cc patient was taken recovery in good condition addendum Dr. Regis Callahan post surgeons in the procedure and then we had Jose A WILCOX was present throughout the procedure and help with retraction exposure and wound closure addendum to assistants were needed in this patient who had a BMI of 40 was 5 feet tall it was quite difficult to get exposure due to her body habitus Surgeon MD Regis Curtis MD Cable Mock Up Assembler willian wilcox Estimated Blood Loss 200 Findings Consistent with Post-Op Diagnosis Specimens none Description of Procedure merda I attest to the content of the Intraoperative Record and any orders documented therein. Any exceptions are noted below.
--- NOTE | 2020-01-16 20:00 | Anesthesiology Progress Note ---
Date of Service January 16, 2020 Anesthesia Post Procedure Vital Signs Vital Signs: Temp Pulse Pulse Pulse Resp BP BP 01/16/20 19:55 66 21 166/59 H 01/16/20 19:45 69 20 127/50 L 01/16/20 19:35 71 16 133/59 L 01/16/20 19:27 36.4 C L 75 19 172/99 H 01/16/20 16:41 36.9 C 73 18 169/72 H 01/16/20 15:41 37.1 C 71 19 147/65 H 01/16/20 07:48 36.7 C 69 18 173/69 H 01/15/20 23:27 36.7 C 61 20 162/83 H 01/15/20 21:08 75 168/74 H Pulse Ox 01/16/20 19:55 97 01/16/20 19:45 96 01/16/20 19:35 96 01/16/20 19:27 95 01/16/20 16:41 95 01/16/20 15:41 91 01/16/20 07:48 96 01/15/20 23:27 96 01/15/20 21:08 Pain Intensity Abdomen: Pain Intensity: 2 Transfer of Care Handoff Completed per policy Notes Mental Status: alert / awake / arousable Patient Amnestic to Procedure: Yes Nausea / Vomiting: adequately controlled Pain: adequately controlled Airway Patency, RR, SpO2: stable & adequate BP & HR: stable & adequate Hydration State: stable & adequate Anesthetic Complications: no major complications apparent
[2020-01-16] MEDS: MoRPHine SULFATE 2 MG/ML CARP IV PRN (20:32)
[2020-01-16] MEDS ORDERED: ATORVASTATIN 40 MG TAB NG SCH (21:00)
[2020-01-16] MEDS: ACETAMINOPHEN 1,000 MG/100 ML VIAL IV SCH (21:38)
[2020-01-16] MEDS: LACTATED RINGER'S 1,000 ML IV SCH (21:38)
[2020-01-16] MEDS: cefOXitin 2,000 MG in DEXTROSE 5% 50 ML IV SCH (23:21)
[2020-01-17] MEDS: ACETAMINOPHEN 1,000 MG/100 ML VIAL IV SCH ×3 (05:55→21:41)
[2020-01-17] MEDS: MoRPHine SULFATE 2 MG/ML CARP IV PRN ×3 (05:56→23:14)
[2020-01-17] MEDS: cefOXitin 2,000 MG in DEXTROSE 5% 50 ML IV SCH ×4 (05:56→23:15)
[2020-01-17] MEDS: HEPARIN SOD 5,000 UNIT/0.5 ML VIAL SQ SCH ×2 (05:56→21:42)
[2020-01-17] MEDS: INSULIN ASPART 100 UNITS/ML 3 ML PEN SC SCH ×3 (06:04→18:04)
[2020-01-17 06:57] LABS: BUN Creatinine Ratio 17.2 (10-20); Calcium 8.3 mg/dl (8.5-10.1); Creatinine Clr Calc Pharmacy 41.7 ml/min; Est GFR (Non-African American) 45.7; Magnesium 2.1 mg/dl (1.8-2.4); Potassium 4.1 mmol/L (3.5-5.1)
--- NOTE | 2020-01-17 07:58 | Surgery Progress Note ---
Date of Service January 17, 2020 Assessment & Plan (1) SBO (small bowel obstruction): POD ex lap lysis of adhesive band UOP marginal, will increase IVF can have ice may remove NG later today, will discuss intraop findings with Dr. Holland Admission and Anticipated Discharge Date Admission Date: January 13, 2020 Subjective feels better than before surgery, minimal pain Physical Exam Gastrointestinal (Abdomen): Inspection/Auscultation: + abdomen distended (m inimal) and + abdominal surgical incision (dressing intact) Percussion/Palpation: abdomen soft NG output minimal Results & Data ([facility]) Vital Signs (Past 12 Hours) Vital Signs Temp Pulse Resp BP Pulse Ox 01/17/20 03:51 36.5 C 75 14 126/62 94 01/16/20 23:47 36.6 C 74 18 107/69 96 01/16/20 21:41 36.4 C L 76 19 110/59 L 96 01/16/20 20:57 36.5 C 70 17 127/80 90 01/16/20 20:33 36.5 C 65 20 146/61 H 95 01/16/20 20:20 36.5 C 62 18 168/63 H 96 PG Care Time/CCT Total # of Minutes Spent Total Time Spent with Patient: Total time spent is greater than 50% in coordination of care (as documented) at patient's floor/unit and/or counseling patient: Coding Level of Care Code None Diagnoses SBO (small bowel obstruction) K56.609
--- NOTE | 2020-01-17 09:15 | Fluoroscopy Report ---
[place] small bowel follow through CLINICAL HISTORY: bowel obstruction COMPARISON STUDY: Abdomen and pelvis CT 01/13/2020. FLUOROSCOPY TIME: 0 seconds. FINDINGS: 6 fluoroscopic spot images of the abdomen were submitted. A total of 300 cc of diluted Opti ray 300 was injected into the patient's indwelling nasogastric tube. Nasogastric tube terminates in t he mid stomach. Adjustment Clerk image demonstrates multiple dilated gas-filled loops of small bowel measuring u p to 5 cm in diameter. Contrast extended to the distal small bowel within the right lower quadrant at the 5 hour interval. Contrast does not extend into the cecum. Examination was then terminated due to lack of contrast movement. The exact transition point was not identified but likely located within t he right lower quadrant. This confirms the finding of a small bowel obstruction seen on the recent CT examination. IMPRESSION: Small bowel obstruction with the transition point likely located within the right lower q uadrant. This is better appreciated on the recent CT examination. ACT 112: Negative or not required by law. Electronically signed by: Jerel Slade M.D. 01/17/2020 9:14 AM
[2020-01-17] MEDS: LACTATED RINGER'S 1,000 ML IV SCH ×2 (09:38→18:35)
[2020-01-17] MEDS ORDERED: PNEUMOCOCCAL ADMINISTRATION CHARGE ONE (10:33)
[2020-01-17] MEDS ORDERED: PNEUMOCOCCAL POLYSACCHARIDES 25 MCG/0.5 ML VIAL/SYR IM ONE (10:33)
[2020-01-17] MEDS ORDERED: SODIUM CHLORIDE 0.9% 1000ML 1,000 ML IV SCH (21:30)
--- NOTE | 2020-01-17 22:42 | Hospitalist Progress Note ---
Date of Service January 17, 2020 Assessment & Plan (1) SBO (small bowel obstruction): Unfortunately her SBO did not resolve with conservative measures. POD #1 - s/p ex lap with release of SBO and DAVID. Bowel all viable during the procedure and no resection was needed. Remains comfortable this POD #1. dressings intact on abd wall. awaiting return of bowel function. continue IV fluids. continue pain meds. appreciate gen surg assistance. (2) Acute UTI: 2nd klebsiella. Previously on rocephin; now on cefoxitin for SBO purposes but this will cover UTI as well. repeat urine cx from 01/15 negative. (3) Diabetes mellitus type 2 in obese: Controlled. While NPO hold lantus. Cont novolog correction. (4) Hypertension: Anti-hypertensive meds on hold. BPs acceptable. (5) Dyslipidemia: HOLD atorvastatin (6) Depression: Will need to hold paroxetine while NPO (7) Acute kidney injury: Peak Cr 1.5, now 1.1 today. BMP am. Baseline Cr 1 to 1.1. Cont IVF. (8) Chronic kidney disease, stage 3a: baseline CrCl 40s bmp in am (9) Morbid obesity with BMI of 40.0-44.9, adult: BMI about 40 (10) DVT prophylaxis: heparin 5000 BID progressing nicely Admission and Anticipated Discharge Date Admission Date: January 13, 2020 Subjective patient states "today is the best day I have felt" no emesis no passage of flatus yet stomach is "sore" denies dyspnea is ambulating to bathroom Review of Systems Constitutional: no fever Respiratory: no cough Cardiovascular: no orthopnea Gastrointestinal: + abdominal pain; no nausea and no vomiting Physical Exam Constitutional: + morbidly obese; no acute distress and no altered mental status ENMT: Mouth: + dry oral mucous membranes Respiratory: normal respiratory effort, lungs clear to auscultation Auscultation: no rales and no wheezes Cardiovascular: Rate/Rhythm: regular rate and regular rhythm Heart Sounds: normal S1 and normal S2; no murmur Vessels: posterior tibial pulses present and dorsalis pedis pulses present; no JVD Extremities: no edema Gastrointestinal (Abdomen): Inspection/Auscultation: + abdomen distended and + hypoactive bowel sounds Percussion/Palpation: + abdomen tender (Incisional); no hepatosplenomegaly Psychiatric: A+Ox3, euthymic affect Results & Data Results & Data ([facility]) Vital Signs (Past 12 Hours) Vital Signs Temp Pulse Resp BP Pulse Ox 01/17/20 15:59 37.1 C 78 16 126/73 91 01/17/20 12:04 37.1 C 75 16 134/73 94 Laboratory Results Laboratory Results - last 24 hr 01/16/20 01/17/20 01/17/20 23:57 05:28 06:04 Sodium 142 Potassium 4.1 Chloride 111 H Carbon Dioxide 24 Anion Gap 7.0 BUN 20 H Creatinine 1.16 Est Cr Clr Drug Dosing 41.7 Est GFR ( Amer) 53.0 Est GFR (Non-Af Amer) 45.7 BUN/Creatinine Ratio 17.2 Glucose 126 H POC Glucose 149 H 122 H Calcium 8.3 L Magnesium 2.1 01/17/20 01/17/20 12:13 18:00 Sodium Potassium Chloride Carbon Dioxide Anion Gap BUN Creatinine Est Cr Clr Drug Dosing Est GFR ( Amer) Est GFR (Non-Af Amer) BUN/Creatinine Ratio Glucose POC Glucose 134 H 119 H Calcium Magnesium PG Care Time/CCT Total # of Minutes Spent Total Time Spent with Patient: Total time spent is greater than 50% in coordination of care (as documented) at patient's floor/unit and/or counseling patient: Coding Level of Care Code 70958 Subseq Hosp Care Lvl 2 Diagnoses SBO (small bowel obstruction) K56.609 Acute UTI N39.0 Diabetes mellitus type 2 in obese E11.69; E66.9 Hypertension I10 Hypertension type: essential hypertension Dyslipidemia E78.5 Depression F32.9 Depression Type: unspecified Acute kidney injury N17.9 Chronic kidney disease, stage 3a N18.31 Morbid obesity with BMI of 40.0-44.9, adult E66.01; Z68.41 DVT prophylaxis Z29.9 (1) Depression Depression Type: unspecified Qualified Code(s): F32.9 - Major depressive disorder, single episode, unspecified (2) Hypertension Hypertension type: essential hypertension Qualified Code(s): I10 - Essential (primary) hypertension
[2020-01-18] MEDS: INSULIN ASPART 100 UNITS/ML 3 ML PEN SC SCH ×5 (00:26→22:20)
[2020-01-18] MEDS: LACTATED RINGER'S 1,000 ML IV SCH ×3 (02:04→22:39)
[2020-01-18 06:09] LABS: Eosinophils # (auto) 0.05 K/uL (0-0.5); Eosinophils % (auto) 0.9 %; Hematocrit (blood only) 28.9 % (37-47); Immature Granulocytes # (auto) 0.02 K/uL (0.00-0.02); Immature Granulocytes % (auto) 0.4 %; Lymphocytes # (auto) 0.48 K/uL (1.2-3.4); Lymphocytes % (auto) 8.6 %; Mean Corpuscular Hemoglobin 29.4 pg (25-34); Mean Corpuscular Hgb Conc 31.1 g/dL (32-36); Mean Corpuscular Volume 94.4 fL (80-100); Mean Platelet Volume 10.8 fL (7.4-10.4); Monocytes # (auto) 0.81 K/uL (0.11-0.59); Monocytes % (auto) 14.5 %; Neutrophils # (auto) 4.24 K/uL (1.4-6.5); Neutrophils % (auto) 75.6 %; Platelet Count 179 K/uL (130-400); RDW Coefficient of Variation 14.7 % (11.5-14.5); RDW Standard Deviation 50.5 fL (36.4-46.3); Red Blood Count 3.06 M/uL (4.2-5.4)
[2020-01-18] MEDS: ACETAMINOPHEN 1,000 MG/100 ML VIAL IV SCH ×3 (06:19→22:16)
[2020-01-18] MEDS: cefOXitin 2,000 MG in DEXTROSE 5% 50 ML IV SCH ×3 (06:35→19:30)
[2020-01-18 06:38] LABS: BUN Creatinine Ratio 15.7 (10-20); Creatinine Clr Calc Pharmacy 41.7 ml/min; Est GFR (Non-African American) 45.7
--- NOTE | 2020-01-18 08:36 | Surgery Progress Note ---
Date of Service January 18, 2020 Assessment & Plan (1) SBO (small bowel obstruction): POD 2 ex lap lysis of adhesive band UOP improved start clears, decrease IVF Admission and Anticipated Discharge Date Admission Date: January 13, 2020 Supervising Physician Co-Signing Physician Notes Patient seen and examined, agree with above. POD #2 ex lap with lysis of adhesions for small bowel obstruction. Doing well, no flatus, no nausea. We will advance diet once return of flatus. Subjective no flatus, feeling better each day Physical Exam Gastrointestinal (Abdomen): Inspection/Auscultation: + abdomen distended (less) and + abdominal surgical incision (annie drainage) Percussion/Palpation: abdomen soft Results & Data ([facility]) Vital Signs (Past 12 Hours) Vital Signs Temp Pulse Resp BP Pulse Ox 01/18/20 07:03 37.0 C 66 18 154/71 H 96 01/17/20 23:05 37 C 80 16 128/69 93 PG Care Time/CCT Total # of Minutes Spent Total Time Spent with Patient: Total time spent is greater than 50% in coordination of care (as documented) at patient's floor/unit and/or counseling patient: Coding Level of Care Code None Diagnoses SBO (small bowel obstruction) K56.609
[2020-01-18] MEDS: HEPARIN SOD 5,000 UNIT/0.5 ML VIAL SQ SCH ×2 (08:57→22:20)
[2020-01-18] MEDS ORDERED: Nursing to Pharmacy Communication SCH (15:15)
--- NOTE | 2020-01-18 22:39 | Hospitalist Progress Note ---
Date of Service January 18, 2020 Assessment & Plan (1) SBO (small bowel obstruction): Unfortunately her SBO did not resolve with conservative measures. Thus, required surgical intervention. POD #2 - s/p ex lap with release of SBO and DAVID. Bowel all viable during the procedure and no resection was needed. Remains comfortable this POD #2. dressings intact on abd wall. awaiting return of bowel function. continue IV fluids. continue pain meds. clears today per gen surg; appreciate their assistance. (2) Acute UTI: 2nd klebsiella. Previously on rocephin; now on cefoxitin for SBO purposes but this will cover UTI as well. repeat urine cx from 01/15 negative. (3) Diabetes mellitus type 2 in obese: Controlled. While NPO hold lantus. Cont novolog correction. (4) Hypertension: Anti-hypertensive meds on hold. BPs acceptable. (5) Dyslipidemia: HOLD atorvastatin (6) Depression: RESUME paroxetine (7) Acute kidney injury: Peak Cr 1.5, now 1.1 today. BMP am. Baseline Cr 1 to 1.1. Cont IVF. (8) Chronic kidney disease, stage 3a: baseline CrCl 40s bmp in am (9) Morbid obesity with BMI of 40.0-44.9, adult: BMI about 40 (10) DVT prophylaxis: heparin 5000 BID progressing nicely Admission and Anticipated Discharge Date Admission Date: January 13, 2020 Subjective feeling good today. ambulating. no flatus yet but was started on clears by surgery today and is tolerating w/o nausea/emesis. abd pain controlled. no dyspnea. Review of Systems Constitutional: no fever and no chills Respiratory: no cough Cardiovascular: no chest pain Physical Exam Constitutional: + morbidly obese; no acute distress and no altered mental status ENMT: external ear and nose normal, oropharynx normal Respiratory: normal respiratory effort, lungs clear to auscultation Auscultation: no rales and no wheezes Cardiovascular: Rate/Rhythm: regular rate and regular rhythm Heart Sounds: normal S1 and normal S2; no murmur Vessels: posterior tibial pulses present and dorsalis pedis pulses present; no JVD Extremities: no edema Gastrointestinal (Abdomen): Inspection/Auscultation: + abdomen distended and normal bowel sounds (improved today ) Percussion/Palpation: + abdomen tender (Incisional - minimal ); no hepatosplenomegaly Skin: dressings in place over abd wall Psychiatric: A+Ox3, euthymic affect Results & Data Results & Data ([facility]) Vital Signs (Past 12 Hours) Vital Signs Temp Pulse Resp BP Pulse Ox 01/18/20 15:23 37.0 C 69 18 160/71 H 92 01/18/20 12:30 37.0 C 70 16 146/77 H 90 Laboratory Results Laboratory Results - last 24 hr 01/18/20 01/18/20 01/18/20 00:12 05:23 05:23 WBC 5.60 RBC 3.06 L Hgb 9.0 L Hct 28.9 L MCV 94.4 MCH 29.4 MCHC 31.1 L RDW Std Deviation 50.5 H RDW Coeff of Pauly 14.7 H Plt Count 179 MPV 10.8 H Immature Gran % (Auto) 0.4 Neut % (Auto) 75.6 Lymph % (Auto) 8.6 [place] % (Auto) 14.5 Eos % (Auto) 0.9 Baso % (Auto) 0.0 Neut # (Auto) 4.24 Lymph # (Auto) 0.48 L [place] # (Auto) 0.81 H Eos # (Auto) 0.05 Baso # (Auto) 0.00 Immature Gran # (Auto) 0.02 Sodium 141 Potassium 4.0 Chloride 110 H Carbon Dioxide 28 Anion Gap 3.0 BUN 18 Creatinine 1.16 Est Cr Clr Drug Dosing 41.7 Est GFR ( Amer) 53.0 Est GFR (Non-Af Amer) 45.7 BUN/Creatinine Ratio 15.7 Glucose 110 H POC Glucose 144 H Calcium 8.0 L 01/18/20 01/18/20 01/18/20 06:08 12:15 17:07 WBC RBC Hgb Hct MCV MCH MCHC RDW Std Deviation RDW Coeff of Pauly Plt Count MPV Immature Gran % (Auto) Neut % (Auto) Lymph % (Auto) [place] % (Auto) Eos % (Auto) Baso % (Auto) Neut # (Auto) Lymph # (Auto) [place] # (Auto) Eos # (Auto) Baso # (Auto) Immature Gran # (Auto) Sodium Potassium Chloride Carbon Dioxide Anion Gap BUN Creatinine Est Cr Clr Drug Dosing Est GFR ( Amer) Est GFR (Non-Af Amer) BUN/Creatinine Ratio Glucose POC Glucose 118 H 152 H 145 H Calcium 01/18/20 21:04 WBC RBC Hgb Hct MCV MCH MCHC RDW Std Deviation RDW Coeff of Pauly Plt Count MPV Immature Gran % (Auto) Neut % (Auto) Lymph % (Auto) [place] % (Auto) Eos % (Auto) Baso % (Auto) Neut # (Auto) Lymph # (Auto) [place] # (Auto) Eos # (Auto) Baso # (Auto) Immature Gran # (Auto) Sodium Potassium Chloride Carbon Dioxide Anion Gap BUN Creatinine Est Cr Clr Drug Dosing Est GFR ( Amer) Est GFR (Non-Af Amer) BUN/Creatinine Ratio Glucose POC Glucose 162 H Calcium PG Care Time/CCT Total # of Minutes Spent Total Time Spent with Patient: Total time spent is greater than 50% in coordination of care (as documented) at patient's floor/unit and/or counseling patient: Coding Level of Care Code 38851 Subseq Hosp Care Lvl 2 Diagnoses SBO (small bowel obstruction) K56.609 Acute UTI N39.0 Diabetes mellitus type 2 in obese E11.69; E66.9 Hypertension I10 Hypertension type: essential hypertension Dyslipidemia E78.5 Depression F32.9 Depression Type: unspecified Acute kidney injury N17.9 Chronic kidney disease, stage 3a N18.31 Morbid obesity with BMI of 40.0-44.9, adult E66.01; Z68.41 DVT prophylaxis Z29.9 (1) Depression Depression Type: unspecified Qualified Code(s): F32.9 - Major depressive disorder, single episode, unspecified (2) Hypertension Hypertension type: essential hypertension Qualified Code(s): I10 - Essential (primary) hypertension
[2020-01-19] MEDS: cefOXitin 2,000 MG in DEXTROSE 5% 50 ML IV SCH ×5 (01:08→23:30)
[2020-01-19] MEDS: ACETAMINOPHEN 1,000 MG/100 ML VIAL IV SCH ×2 (05:32→13:13)
[2020-01-19 06:54] LABS: Eosinophils # (auto) 0.14 K/uL (0-0.5); Eosinophils % (auto) 2.9 %; Hematocrit (blood only) 27.7 % (37-47); Immature Granulocytes # (auto) 0.03 K/uL (0.00-0.02); Immature Granulocytes % (auto) 0.6 %; Lymphocytes # (auto) 0.44 K/uL (1.2-3.4); Mean Corpuscular Hgb Conc 32.5 g/dL (32-36); Mean Corpuscular Volume 92.3 fL (80-100); Mean Platelet Volume 10.4 fL (7.4-10.4); Monocytes # (auto) 0.52 K/uL (0.11-0.59); Monocytes % (auto) 10.7 %; Neutrophils # (auto) 3.75 K/uL (1.4-6.5); Neutrophils % (auto) 76.8 %; Platelet Count 185 K/uL (130-400); RDW Coefficient of Variation 14.6 % (11.5-14.5); RDW Standard Deviation 49.5 fL (36.4-46.3); White Blood Count 4.88 K/uL (4.8-10.8)
[2020-01-19 07:24] LABS: BUN Creatinine Ratio 9.2 (10-20); Calcium 7.7 mg/dl (8.5-10.1); Creatinine Clr Calc Pharmacy 31.6 ml/min; Est GFR (African American) 37.9; Est GFR (Non-African American) 32.7; Potassium 3.7 mmol/L (3.5-5.1)
[2020-01-19] MEDS: LACTATED RINGER'S 1,000 ML IV SCH ×2 (08:57→18:15)
[2020-01-19] MEDS: INSULIN ASPART 100 UNITS/ML 3 ML PEN SC SCH ×4 (08:57→20:58)
[2020-01-19] MEDS: HEPARIN SOD 5,000 UNIT/0.5 ML VIAL SQ SCH ×2 (08:57→20:58)
--- NOTE | 2020-01-19 09:13 | Surgery Progress Note ---
Date of Service January 19, 2020 Assessment & Plan (1) SBO (small bowel obstruction): POD#3 exlap and lysis of adhesive band Patient denies any abdominal pain, nausea/vomiting She is passing flatus and had a couple loose BMs this AM Tolerating clears, will advance to full liquids for lunch. If tolerates fulls she may be able to advance to low fiber for dinner or breakfast tomorrow Pt seen and examined with Dr. Barba Admission and Anticipated Discharge Date Admission Date: January 13, 2020 Supervising Physician Co-Signing Physician Notes Patient seen and examined, agree with above. POD #3 ex lap with lysis of adhesions for small bowel obstruction. Doing well, passing flatus and having bowel movements. Tolerated clear liquids yesterday. Will advance diet slowly as tolerated. Subjective Patient states she is feeling well. Had a large/loose BM this AM. Denies abdominal pain, nausea/vomiting. Tolerating clears. Is hungry for more. Physical Exam Physical Exam: awake/alert Respiratory: normal respiratory effort Gastrointestinal (Abdomen): Inspection/Auscultation: + abdominal surgical inci юлия (c/d/i); abdomen not distended Percussion/Palpation: abdomen soft; abdomen nontender Results & Data ([facility]) Vital Signs (Past 12 Hours) Vital Signs Temp Pulse Resp BP Pulse Ox 01/19/20 08:56 61 152/83 H 01/19/20 07:50 36.8 C 58 L 18 182/76 H 94 01/19/20 03:38 98 01/19/20 00:16 37 C 67 18 149/70 H 90 PG Care Time/CCT Total # of Minutes Spent Total Time Spent with Patient: Total time spent is greater than 50% in coordination of care (as documented) at patient's floor/unit and/or counseling patient: Coding Level of Care Code None Diagnoses SBO (small bowel obstruction) K56.609
[2020-01-19] MEDS ORDERED: PARoxetine HCL 20 MG TAB PO ONE (10:23)
[2020-01-19] MEDS: GABAPENTIN 100 MG CAP PO SCH (20:56)
--- NOTE | 2020-01-19 22:47 | Hospitalist Progress Note ---
Date of Service January 19, 2020 Assessment & Plan (1) SBO (small bowel obstruction): POD #3 - s/p ex lap with release of SBO and DAVID. Bowel all viable during the procedure and no resection was needed. + stool. Tolerating full liquids; diet advancement per gen surg. continue IV fluids. continue pain meds. progressing nicely. (2) Acute UTI: 2nd klebsiella. Previously on rocephin; now on cefoxitin for SBO purposes but this will cover UTI as well. repeat urine cx from 01/15 negative. has received about 5 days of IV antibiotics. stop IV antibiotics in am; change to keflex 500mg BID x 2 additional days then stop all Rx. (3) Diabetes mellitus type 2 in obese: Controlled. Cont novolog correction. Will need to resume lantus soon now that diet is being advanced. (4) Hypertension: If Cr is stable in am resume lisinopril. (5) Dyslipidemia: HOLD atorvastatin for now but can likely resume soon (6) Depression: cont paroxetine (7) Acute kidney injury: Peak Cr 1.5, improved to 1.1, then jumped to 1.5 this am. Cont IVF. Repeat BMP am. Hold BRAD untli Cr normalizes. (8) Chronic kidney disease, stage 3a: baseline CrCl 40s bmp in am (9) Morbid obesity with BMI of 40.0-44.9, adult: BMI about 40 (10) DVT prophylaxis: heparin 5000 TID progressing nicely PT, OT - continue daughter updated at bedside Admission and Anticipated Discharge Date Admission Date: January 13, 2020 Subjective patient feeling "really well". multiple bowel movements. abd distension improved. tolerating full liquids. no nausea/emesis. no dyspnea. at times requiring nocturnal O2 -- daughter states she snores and has apneas at home. voiding well. Review of Systems Constitutional: no fever, no chills, no fatigue and no anorexia Respiratory: no cough Cardiovascular: no chest pain Physical Exam Constitutional: + morbidly obese; no acute distress and no altered mental status ENMT: external ear and nose normal, oropharynx normal Respiratory: normal respiratory effort, lungs clear to auscultation Auscultation: + diminished lung sounds (Bases); no rales and no wheezes Cardiovascular: Rate/Rhythm: regular rate and regular rhythm Heart Sounds: normal S1 and normal S2; no murmur Vessels: posterior tibial pulses present and dorsalis pedis pulses present; no JVD Extremities: no edema Gastrointestinal (Abdomen): Inspection/Auscultation: + abdomen distended (Mild; improved from yesterday) and normal bowel sounds (improved today ) Percussion/Palpation: + abdomen tender (Incisional - minimal ); no hepatosplenomegaly Skin: dressings intact abdominal wall Psychiatric: A+Ox3, euthymic affect Results & Data Results & Data ([facility]) Vital Signs (Past 12 Hours) Vital Signs Temp Pulse Resp BP Pulse Ox 01/19/20 15:12 36.9 C 67 18 137/65 97 Laboratory Results Laboratory Results - last 24 hr 01/19/20 01/19/20 01/19/20 06:31 06:31 08:32 WBC 4.88 RBC 3.00 L Hgb 9.0 L Hct 27.7 L MCV 92.3 MCH 30.0 MCHC 32.5 RDW Std Deviation 49.5 H RDW Coeff of Pauly 14.6 H Plt Count 185 MPV 10.4 Immature Gran % (Auto) 0.6 Neut % (Auto) 76.8 Lymph % (Auto) 9.0 [place] % (Auto) 10.7 Eos % (Auto) 2.9 Baso % (Auto) 0.0 Neut # (Auto) 3.75 Lymph # (Auto) 0.44 L [place] # (Auto) 0.52 Eos # (Auto) 0.14 Baso # (Auto) 0.00 Immature Gran # (Auto) 0.03 H Sodium 141 Potassium 3.7 Chloride 111 H Carbon Dioxide 27 Anion Gap 3.0 BUN 14 Creatinine 1.53 H D Est Cr Clr Drug Dosing 31.6 Est GFR ( Amer) 37.9 Est GFR (Non-Af Amer) 32.7 BUN/Creatinine Ratio 9.2 L Glucose 138 H POC Glucose 141 H Calcium 7.7 L 01/19/20 01/19/20 01/19/20 12:06 17:14 20:41 WBC RBC Hgb Hct MCV MCH MCHC RDW Std Deviation RDW Coeff of Pauly Plt Count MPV Immature Gran % (Auto) Neut % (Auto) Lymph % (Auto) [place] % (Auto) Eos % (Auto) Baso % (Auto) Neut # (Auto) Lymph # (Auto) [place] # (Auto) Eos # (Auto) Baso # (Auto) Immature Gran # (Auto) Sodium Potassium Chloride Carbon Dioxide Anion Gap BUN Creatinine Est Cr Clr Drug Dosing Est GFR ( Amer) Est GFR (Non-Af Amer) BUN/Creatinine Ratio Glucose POC Glucose 129 H 110 H 141 H Calcium PG Care Time/CCT Total # of Minutes Spent Total Time Spent with Patient: Total time spent is greater than 50% in coordination of care (as documented) at patient's floor/unit and/or counseling patient: Coding Level of Care Code 41600 Subseq Hosp Care Lvl 2 Diagnoses SBO (small bowel obstruction) K56.609 Acute UTI N39.0 Diabetes mellitus type 2 in obese E11.69; E66.9 Hypertension I10 Hypertension type: essential hypertension Dyslipidemia E78.5 Depression F32.9 Depression Type: unspecified Acute kidney injury N17.9 Chronic kidney disease, stage 3a N18.31 Morbid obesity with BMI of 40.0-44.9, adult E66.01; Z68.41 DVT prophylaxis Z29.9 (1) Depression Depression Type: unspecified Qualified Code(s): F32.9 - Major depressive disorder, single episode, unspecified (2) Hypertension Hypertension type: essential hypertension Qualified Code(s): I10 - Essential (primary) hypertension
[2020-01-20] MEDS: LACTATED RINGER'S 1,000 ML IV SCH ×3 (03:22→23:25)
[2020-01-20] MEDS: cefOXitin 2,000 MG in DEXTROSE 5% 50 ML IV SCH (05:49)
--- NOTE | 2020-01-20 07:55 | Surgery Progress Note ---
Date of Service January 20, 2020 Assessment & Plan (1) SBO (small bowel obstruction): Patient is 4-day postop exploratory lap lysis of adhesions for bowel obstruction She is doing well her GI function is returning and minimal abdominal discomfort Her creatinine was slightly elevated yesterday we kept her fluids 125 lab this morning is pending Suspect the patient will be here another 24 to 48 hours before discharge Admission and Anticipated Discharge Date Admission Date: January 13, 2020 Subjective Feels well moving her bowels some abdominal discomfort tolerating oral intake Physical Exam Physical Exam: Alert coherent resting comfortably in bed without complaints The abdomen is soft minimally distended no tenderness No obvious pedal edema Results & Data ([facility]) Vital Signs (Past 12 Hours) Vital Signs Temp Pulse Resp BP Pulse Ox 01/20/20 07:34 37 C 68 16 161/93 H 95 01/19/20 23:05 37 C 63 18 167/75 H 96 PG Care Time/CCT Total # of Minutes Spent Total Time Spent with Patient: Total time spent is greater than 50% in coordination of care (as documented) at patient's floor/unit and/or counseling patient: Coding Level of Care Code None Diagnoses SBO (small bowel obstruction) K56.609
[2020-01-20 08:05] LABS: Eosinophils # (auto) 0.19 K/uL (0-0.5); Eosinophils % (auto) 4.2 %; Hematocrit (blood only) 28.1 % (37-47); Hemoglobin 8.7 g/dL (12.0-16.0); Immature Granulocytes # (auto) 0.04 K/uL (0.00-0.02); Immature Granulocytes % (auto) 0.9 %; Lymphocytes # (auto) 0.65 K/uL (1.2-3.4); Lymphocytes % (auto) 14.5 %; Mean Corpuscular Hemoglobin 28.8 pg (25-34); Mean Platelet Volume 10.7 fL (7.4-10.4); Monocytes # (auto) 0.39 K/uL (0.11-0.59); Monocytes % (auto) 8.7 %; Neutrophils # (auto) 3.22 K/uL (1.4-6.5); Neutrophils % (auto) 71.7 %; Platelet Count 227 K/uL (130-400); RDW Coefficient of Variation 14.6 % (11.5-14.5); RDW Standard Deviation 49.9 fL (36.4-46.3); Red Blood Count 3.02 M/uL (4.2-5.4); White Blood Count 4.49 K/uL (4.8-10.8)
[2020-01-20 08:25] LABS: BUN Creatinine Ratio 5.5 (10-20); Calcium 8.2 mg/dl (8.5-10.1); Creatinine Clr Calc Pharmacy 30.2 ml/min; Est GFR (African American) 35.9; Potassium 3.7 mmol/L (3.5-5.1)
[2020-01-20] MEDS: INSULIN ASPART 100 UNITS/ML 3 ML PEN SC SCH ×4 (09:11→21:38)
[2020-01-20] MEDS: PARoxetine HCL 20 MG TAB PO SCH (09:13)
--- NOTE | 2020-01-20 11:02 | Hospitalist Progress Note ---
Date of Service January 20, 2020 Assessment & Plan (1) SBO (small bowel obstruction): POD #4 - s/p ex lap with release of SBO and DAVID. Bowel all viable during the procedure and no resection was needed. + stool. Tolerating diet, surgery managing continue IV fluids, LR at 80cc/hr continue pain meds. progressing nicely, likely ready for d/c in 24-48 hours (2) Acute UTI: 2nd klebsiella. Previously on rocephin; now on cefoxitin for SBO purposes but this will cover UTI as well. repeat urine cx from 01/15 negative. has received about 6 days of IV antibiotics. (3) Diabetes mellitus type 2 in obese: Controlled. Cont novolog correction. Will need to resume lantus soon now that diet is being advanced. monitor for hypoglycemia, no episodes (4) Hypertension: continue to hold Lisinopril due to Cr up at 1.6 use Hydralazine PRN (5) Dyslipidemia: HOLD atorvastatin for now but can likely resume soon (6) Depression: cont paroxetine (7) Acute kidney injury: Peak Cr 1.5, improved to 1.1, then jumped to 1.5 yesterday and 1.6 today Cont IVF. Repeat BMP am. Hold BARD untli Cr normalizes. (8) Chronic kidney disease, stage 3a: baseline CrCl 40s bmp in am (9) Morbid obesity with BMI of 40.0-44.9, adult: BMI about 40 (10) DVT prophylaxis: heparin 5000 TID progressing nicely PT, OT - continue Admission and Anticipated Discharge Date Admission Date: January 13, 2020 Subjective patient sitting up in bed, feeling well, tolerating diet, moving her bowels and + flatus Cr remains elevated at 1.6 from 1.53, agree with IV fluids started by surgery electrolytes stable surgery feels she will be ready in 24-48 hours patient denies fever, chest pain, dyspnea, cough, abdominal pain Review of Systems Review of Systems: All systems reviewed & are unremarkable except as noted in Subjective Constitutional: no fever, no chills, no sweats, no fatigue and no weakness Respiratory: no cough and no dyspnea Cardiovascular: no chest pain and no edema Gastrointestinal: no abdominal pain, no nausea, no vomiting, no constipation and no diarrhea/loose stools Physical Exam Constitutional: WD/WN, vitals as above Neck: trachea midline, no thyromegaly Respiratory: normal respiratory effort, lungs clear to auscultation Cardiovascular: RRR, no murmur, no edema Gastrointestinal (Abdomen): normal bowel sounds, soft, nontender, no hepatosplenomegaly Inspection/Auscultation: + abdominal surgical incision (clean, dry, intact) Musculoskeletal: no cyanosis or clubbing, extremities motor strength 5/5 Skin: no rashes, warm and dry Neurologic: patellar DTR's 2+ bilat, sensation intact and PERRL, EOMI, accommodation nl, no face palsy, no dysarthria Psychiatric: A+Ox3, euthymic affect Lymphatic: no cervical or axillary lymphadenopathy Results & Data Results & Data ([facility]) Vital Signs (Past 12 Hours) Vital Signs Temp Pulse Resp BP Pulse Ox 01/20/20 07:34 37 C 68 16 161/93 H 95 01/19/20 23:05 37 C 63 18 167/75 H 96 Laboratory Results Laboratory Results - last 24 hr 01/19/20 01/20/20 01/20/20 20:41 06:35 06:35 WBC 4.49 L RBC 3.02 L Hgb 8.7 L Hct 28.1 L MCV 93.0 MCH 28.8 MCHC 31.0 L RDW Std Deviation 49.9 H RDW Coeff of Pauly 14.6 H Plt Count 227 MPV 10.7 H Immature Gran % (Auto) 0.9 Neut % (Auto) 71.7 Lymph % (Auto) 14.5 [place] % (Auto) 8.7 Eos % (Auto) 4.2 Baso % (Auto) 0.0 Neut # (Auto) 3.22 Lymph # (Auto) 0.65 L [place] # (Auto) 0.39 Eos # (Auto) 0.19 Baso # (Auto) 0.00 Immature Gran # (Auto) 0.04 H Sodium 143 Potassium 3.7 Chloride 110 H Carbon Dioxide 27 Anion Gap 5.0 BUN 9 D Creatinine 1.60 H Est Cr Clr Drug Dosing 30.2 Est GFR ( Amer) 35.9 Est GFR (Non-Af Amer) 31.0 BUN/Creatinine Ratio 5.5 L Glucose 119 H POC Glucose 141 H Calcium 8.2 L 01/20/20 01/20/20 01/20/20 08:05 12:25 17:13 WBC RBC Hgb Hct MCV MCH MCHC RDW Std Deviation RDW Coeff of Pauly Plt Count MPV Immature Gran % (Auto) Neut % (Auto) Lymph % (Auto) [place] % (Auto) Eos % (Auto) Baso % (Auto) Neut # (Auto) Lymph # (Auto) [place] # (Auto) Eos # (Auto) Baso # (Auto) Immature Gran # (Auto) Sodium Potassium Chloride Carbon Dioxide Anion Gap BUN Creatinine Est Cr Clr Drug Dosing Est GFR ( Amer) Est GFR (Non-Af Amer) BUN/Creatinine Ratio Glucose POC Glucose 127 H 139 H 133 H Calcium Medications Administered Current Inpatient Medications Cephalexin HCl (Cephalexin 500 Mg Cap) 500 mg PO BID NISHI; Protocol Stop: 01/22/20 20:59 Dextrose (Dextrose 50% 50 Ml Syringe) 25 - 50 ml IV UD PRN; Protocol PRN Reason: Hypoglycemia Protocol Stop: 02/13/20 01:00 Gabapentin (Gabapentin 100 Mg Cap) 200 mg PO HS NISHI Stop: 02/18/20 20:59 Last Admin: 01/19/20 20:56 Dose: 200 mg Documented by: Glucagon (Glucagon For Inj 1 Mg Vial) 1 mg SQ UD PRN; Protocol PRN Reason: Hypoglycemia Protocol Stop: 02/13/20 01:00 Heparin Sodium (Porcine) (Heparin Sod 5,000 Unit/0.5 Ml Vial) 5,000 units SQ Q8 NISHI Stop: 02/19/20 13:59 Last Admin: 01/20/20 13:33 Dose: 5,000 units Documented by: Lactated Ringer's (Lr) 1,000 mls @ 80 mls/hr IV .[id number] NISHI Stop: 02/15/20 20:26 Last Admin: 01/20/20 11:11 Dose: 80 mls/hr Documented by: Insulin Aspart (Insulin Aspart 100 Units/Ml 3 Ml Pen) 0 units SC ACHS NISHI Stop: 02/17/20 16:29 Last Admin: 01/20/20 13:32 Dose: 3 units Documented by: Morphine Sulfate (Morphine Sulfate 2 Mg/Ml Carp) 2 mg IV Q4H PRN PRN Reason: Pain Stop: 01/28/20 01:00 Last Admin: 01/17/20 23:14 Dose: 2 mg Documented by: Ondansetron HCl (Ondansetron Inj 2 Mg/Ml 2 Ml Vial) 4 mg IV Q6H PRN PRN Reason: Nausea Stop: 02/13/20 01:00 Last Admin: 01/16/20 13:55 Dose: 4 mg Documented by: Paroxetine HCl (Paroxetine Hcl 20 Mg Tab) 20 mg PO QAM NISHI Stop: 02/19/20 08:59 Last Admin: 01/20/20 09:13 Dose: 20 mg Documented by: PG Care Time/CCT Total # of Minutes Spent Total Time Spent with Patient: Total time spent is greater than 50% in coordination of care (as documented) at patient's floor/unit and/or counseling patient: Coding Level of Care Code 23652 Subseq Hosp Care Lvl 3 Diagnoses SBO (small bowel obstruction) K56.609 Acute UTI N39.0 Diabetes mellitus type 2 in obese E11.69; E66.9 Hypertension I10 Hypertension type: essential hypertension Dyslipidemia E78.5 Depression F32.9 Depression Type: unspecified Acute kidney injury N17.9 Chronic kidney disease, stage 3a N18.31 Morbid obesity with BMI of 40.0-44.9, adult E66.01; Z68.41 DVT prophylaxis Z29.9 (1) Depression Depression Type: unspecified Qualified Code(s): F32.9 - Major depressive disorder, single episode, unspecified (2) Hypertension Hypertension type: essential hypertension Qualified Code(s): I10 - Essential (primary) hypertension
[2020-01-20] MEDS: HEPARIN SOD 5,000 UNIT/0.5 ML VIAL SQ SCH ×2 (13:33→21:39)
[2020-01-20] MEDS: cephALEXin 500 MG CAP PO SCH (21:38)
[2020-01-20] MEDS: GABAPENTIN 100 MG CAP PO SCH (21:38)
[2020-01-21] MEDS: HEPARIN SOD 5,000 UNIT/0.5 ML VIAL SQ SCH ×3 (05:23→22:01)
--- NOTE | 2020-01-21 06:47 | Surgery Progress Note ---
Date of Service January 21, 2020 Assessment & Plan (1) SBO (small bowel obstruction): The lab this morning is pending regarding a follow-up on her creatinine this progressively higher We will increase her diet to a low fiber diet and instructed the patient regarding her activity most likely she may be able to be discharged tomorrow if her renal function stabilizes We will remove the [place] later today and the patient may shower Present on Admission?: Yes Admission and Anticipated Discharge Date Admission Date: January 13, 2020 Subjective Patient feels fine has had multiple bowel movements tolerating a diet no abdominal pain been up and around Physical Exam Physical Exam: Alert coherent feels fine Abdomen soft did not take the dressing of the incision but will remove the Alia drain later today Results & Data ([facility]) Vital Signs (Past 12 Hours) Vital Signs Temp Pulse Resp BP Pulse Ox 01/21/20 01:31 178/78 H 01/20/20 23:32 36.7 C 61 18 177/84 H 95 PG Care Time/CCT Total # of Minutes Spent Total Time Spent with Patient: Total time spent is greater than 50% in coordination of care (as documented) at patient's floor/unit and/or counseling patient: Coding Level of Care Code None Diagnoses SBO (small bowel obstruction) K56.609
[2020-01-21 07:09] LABS: Eosinophils # (auto) 0.16 K/uL (0-0.5); Eosinophils % (auto) 4.1 %; Hematocrit (blood only) 29.6 % (37-47); Hemoglobin 9.3 g/dL (12.0-16.0); Immature Granulocytes # (auto) 0.06 K/uL (0.00-0.02); Immature Granulocytes % (auto) 1.5 %; Lymphocytes % (auto) 20.3 %; Mean Corpuscular Hemoglobin 29.1 pg (25-34); Mean Corpuscular Hgb Conc 31.4 g/dL (32-36); Mean Corpuscular Volume 92.5 fL (80-100); Mean Platelet Volume 10.5 fL (7.4-10.4); Monocytes # (auto) 0.52 K/uL (0.11-0.59); Monocytes % (auto) 13.2 %; Neutrophils % (auto) 60.9 %; Platelet Count 252 K/uL (130-400); RDW Coefficient of Variation 14.8 % (11.5-14.5); RDW Standard Deviation 50.3 fL (36.4-46.3); White Blood Count 3.94 K/uL (4.8-10.8)
[2020-01-21 07:41] LABS: Calcium 8.5 mg/dl (8.5-10.1); Creatinine Clr Calc Pharmacy 60.4 ml/min; Est GFR (African American) 78.2; Est GFR (Non-African American) 67.5; Potassium 3.5 mmol/L (3.5-5.1)
[2020-01-21] MEDS: INSULIN ASPART 100 UNITS/ML 3 ML PEN SC SCH ×4 (09:03→22:02)
[2020-01-21] MEDS: PARoxetine HCL 20 MG TAB PO SCH (09:03)
[2020-01-21] MEDS: cephALEXin 500 MG CAP PO SCH ×2 (09:03→20:29)
[2020-01-21] MEDS: lisinopril 20 MG TAB PO SCH (09:52)
--- NOTE | 2020-01-21 16:28 | Hospitalist Progress Note ---
Date of Service January 21, 2020 Assessment & Plan (1) SBO (small bowel obstruction): POD #5 - s/p ex lap with release of SBO and DAVID. Bowel all viable during the procedure and no resection was needed. + stool, loose today Tolerating regular diet, surgery managing stop fluids today progressing nicely, likely ready for d/c tomorrow (2) Acute UTI: 2nd klebsiella. Previously on rocephin; now on cefoxitin for SBO purposes but this will cover UTI as well. repeat urine cx from 01/15 negative. has received about 7 days of IV antibiotics. (3) Diabetes mellitus type 2 in obese: Controlled. Cont novolog correction. Will need to resume lantus soon now that diet is being advanced. monitor for hypoglycemia, no episodes (4) Hypertension: resume Lisinopril today (5) Dyslipidemia: HOLD atorvastatin for now but can likely resume soon (6) Depression: cont paroxetine (7) Acute kidney injury: Peak Cr 1.5, improved to 1.1, then jumped to 1.5 and 1.6 improved to 0.8 today stop fluids (8) Chronic kidney disease, stage 3a: baseline CrCl 40s bmp in am (9) Morbid obesity with BMI of 40.0-44.9, adult: BMI about 40 (10) DVT prophylaxis: heparin 5000 TID progressing nicely PT, OT - continue Admission and Anticipated Discharge Date Admission Date: January 13, 2020 Subjective patient doing great today, advanced to regular diet, tolerating well Cr improved to 0.8, ALISIA resolved BP elevated, resumed lisinopril since Cr normalized no abdominal pain, no vomiting, she is have soft, loose bowel movements no chest pain, no dyspnea, no fever could be ready to go home tomorrow Review of Systems Review of Systems: All systems reviewed & are unremarkable except as noted in Subjective Physical Exam Constitutional: WD/WN, vitals as above Neck: trachea midline, no thyromegaly Respiratory: normal respiratory effort, lungs clear to auscultation Cardiovascular: RRR, no murmur, no edema Gastrointestinal (Abdomen): normal bowel sounds, soft, nontender, no hepatosplenomegaly Inspection/Auscultation: + abdominal surgical incision (clean, dry, intact) Musculoskeletal: no cyanosis or clubbing, extremities motor strength 5/5 Skin: no rashes, warm and dry Neurologic: patellar DTR's 2+ bilat, sensation intact and PERRL, EOMI, accommodation nl, no face palsy, no dysarthria Psychiatric: A+Ox3, euthymic affect Lymphatic: no cervical or axillary lymphadenopathy Results & Data Results & Data ([facility]) Vital Signs (Past 12 Hours) Vital Signs Temp Pulse Resp BP Pulse Ox 01/21/20 15:00 36.8 C 66 16 168/63 H 95 01/21/20 07:46 36.8 C 61 18 184/76 H 95 Laboratory Results Laboratory Results - last 24 hr 01/20/20 01/20/20 01/21/20 17:13 20:44 06:19 WBC RBC Hgb Hct MCV MCH MCHC RDW Std Deviation RDW Coeff of Pauly Plt Count MPV Immature Gran % (Auto) Neut % (Auto) Lymph % (Auto) [place] % (Auto) Eos % (Auto) Baso % (Auto) Neut # (Auto) Lymph # (Auto) [place] # (Auto) Eos # (Auto) Baso # (Auto) Immature Gran # (Auto) Sodium 143 Potassium 3.5 Chloride 110 H Carbon Dioxide 27 Anion Gap 6.0 BUN 7 Creatinine 0.84 D Est Cr Clr Drug Dosing 60.4 Est GFR ( Amer) 78.2 Est GFR (Non-Af Amer) 67.5 BUN/Creatinine Ratio 8.0 L Glucose 109 H POC Glucose 133 H 124 H Calcium 8.5 01/21/20 01/21/20 01/21/20 06:26 08:17 11:55 WBC 3.94 L RBC 3.20 L Hgb 9.3 L Hct 29.6 L MCV 92.5 MCH 29.1 MCHC 31.4 L RDW Std Deviation 50.3 H RDW Coeff of Pauly 14.8 H Plt Count 252 MPV 10.5 H Immature Gran % (Auto) 1.5 Neut % (Auto) 60.9 Lymph % (Auto) 20.3 [place] % (Auto) 13.2 Eos % (Auto) 4.1 Baso % (Auto) 0.0 Neut # (Auto) 2.40 Lymph # (Auto) 0.80 L [place] # (Auto) 0.52 Eos # (Auto) 0.16 Baso # (Auto) 0.00 Immature Gran # (Auto) 0.06 H Sodium Potassium Chloride Carbon Dioxide Anion Gap BUN Creatinine Est Cr Clr Drug Dosing Est GFR ( Amer) Est GFR (Non-Af Amer) BUN/Creatinine Ratio Glucose POC Glucose 109 H 136 H Calcium Medications Administered Current Inpatient Medications Cephalexin HCl (Cephalexin 500 Mg Cap) 500 mg PO BID [facility]; Protocol Stop: 01/22/20 20:59 Last Admin: 01/21/20 09:03 Dose: 500 mg Documented by: Dextrose (Dextrose 50% 50 Ml Syringe) 25 - 50 ml IV UD PRN; Protocol PRN Reason: Hypoglycemia Protocol Stop: 02/13/20 01:00 Gabapentin (Gabapentin 100 Mg Cap) 200 mg PO HS [facility] Stop: 02/18/20 20:59 Last Admin: 01/20/20 21:38 Dose: 200 mg Documented by: Glucagon (Glucagon For Inj 1 Mg Vial) 1 mg SQ UD PRN; Protocol PRN Reason: Hypoglycemia Protocol Stop: 02/13/20 01:00 Heparin Sodium (Porcine) (Heparin Sod 5,000 Unit/0.5 Ml Vial) 5,000 units SQ Q8 NISHI Stop: 02/19/20 13:59 Last Admin: 01/21/20 13:07 Dose: 5,000 units Documented by: Insulin Aspart (Insulin Aspart 100 Units/Ml 3 Ml Pen) 0 units SC ACHS [facility] Stop: 02/17/20 16:29 Last Admin: 01/21/20 13:07 Dose: 4 units Documented by: Lisinopril (Lisinopril 20 Mg Tab) 20 mg PO QAM [facility] Stop: 02/20/20 09:44 Last Admin: 01/21/20 09:52 Dose: 20 mg Documented by: Morphine Sulfate (Morphine Sulfate 2 Mg/Ml Carp) 2 mg IV Q4H PRN PRN Reason: Pain Stop: 01/28/20 01:00 Last Admin: 01/17/20 23:14 Dose: 2 mg Documented by: Ondansetron HCl (Ondansetron Inj 2 Mg/Ml 2 Ml Vial) 4 mg IV Q6H PRN PRN Reason: Nausea Stop: 02/13/20 01:00 Last Admin: 01/16/20 13:55 Dose: 4 mg Documented by: Paroxetine HCl (Paroxetine Hcl 20 Mg Tab) 20 mg PO QAM [facility] Stop: 02/19/20 08:59 Last Admin: 01/21/20 09:03 Dose: 20 mg Documented by: PG Care Time/CCT Total # of Minutes Spent Total Time Spent with Patient: Total time spent is greater than 50% in coordination of care (as documented) at patient's floor/unit and/or counseling patient: Coding Level of Care Code 40621 Subseq Hosp Care Lvl 3 Diagnoses SBO (small bowel obstruction) K56.609 Acute UTI N39.0 Diabetes mellitus type 2 in obese E11.69; E66.9 Hypertension I10 Hypertension type: essential hypertension Dyslipidemia E78.5 Depression F32.9 Depression Type: unspecified Acute kidney injury N17.9 Chronic kidney disease, stage 3a N18.31 Morbid obesity with BMI of 40.0-44.9, adult E66.01; Z68.41 DVT prophylaxis Z29.9 (1) Depression Depression Type: unspecified Qualified Code(s): F32.9 - Major depressive disorder, single episode, unspecified (2) Hypertension Hypertension type: essential hypertension Qualified Code(s): I10 - Essential (primary) hypertension
[2020-01-21] MEDS: GABAPENTIN 100 MG CAP PO SCH (20:29)
--- NOTE | 2020-01-22 05:35 | Surgery Progress Note ---
Date of Service January 22, 2020 Assessment & Plan (1) SBO (small bowel obstruction): Patient is approximately 6 days postop exploratory lap lysis of adhesion he is doing well renal function is normalized tolerating a diet and minimal abdominal discomfort from my point of view she can be discharged see her back in the office in approximately 1 week she may shower do not lift anything heavier than 10 pounds till we see her and no driving until we see her Analgesics she can take some Tylenol or Motrin that should be sufficient Admission and Anticipated Discharge Date Admission Date: January 13, 2020 Subjective Patient feels fine she wants to go home no abdominal pain moving her bowels tolerating a diet Physical Exam Physical Exam: Alert coherent comfortable in bed The abdomen no tenderness the incision with retention sutures some ecchymosis noted the proximal distal ends were the [place] was this area was redressed No obvious pedal edema Results & Data ([facility]) Vital Signs (Past 12 Hours) Vital Signs Temp Pulse Resp BP Pulse Ox 01/21/20 23:53 36.9 C 62 18 147/82 H 94 PG Care Time/CCT Total # of Minutes Spent Total Time Spent with Patient: Total time spent is greater than 50% in coordination of care (as documented) at patient's floor/unit and/or counseling patient: Coding Level of Care Code None Diagnoses SBO (small bowel obstruction) K56.609
[2020-01-22] MEDS: HEPARIN SOD 5,000 UNIT/0.5 ML VIAL SQ SCH (05:43)
[2020-01-22] MEDS: cephALEXin 500 MG CAP PO SCH (07:52)
[2020-01-22] MEDS: lisinopril 20 MG TAB PO SCH (07:52)
[2020-01-22] MEDS: PARoxetine HCL 20 MG TAB PO SCH (07:52)
[2020-01-22 08:16] LABS: Hematocrit (blood only) 28.8 % (37-47); Mean Corpuscular Hemoglobin 28.8 pg (25-34); Mean Corpuscular Hgb Conc 31.3 g/dL (32-36); Mean Platelet Volume 10.1 fL (7.4-10.4); Nucleated RBC # (auto) 0.03 K/uL (0-0); Nucleated RBC % (auto) 0.7 %; Platelet Count 279 K/uL (130-400); RDW Standard Deviation 50.6 fL (36.4-46.3); Red Blood Count 3.13 M/uL (4.2-5.4)
--- NOTE | 2020-01-22 08:19 | Discharge Summary ---
Date of Service January 22, 2020 Admission HPI Per Admitting Provider Miranda Allred is a 74yo female presenting with acute onset severe abdominal pain that started today around 12:00. Pain was bandlike across upper abdomen with associated nausea and chills. . Multiple episodes of non-bloody emesis. +BM earlier today, soft, non-bloody. +mild abdominal distention No additional complaints at this time. ER Course: Tylenol, Ceftriaxone, Dilaudid, Zofran Principal Diagnosis Small bowel obstruction Discharge Exam Constitutional WD/WN, vitals as above Neck trachea midline, no thyromegaly Respiratory normal respiratory effort, lungs clear to auscultation Cardiovascular RRR, no murmur, no edema Gastrointestinal (Abdomen) normal bowel sounds, soft, nontender, no hepatosplenomegaly Inspection/Auscultation: + abdominal surgical incision (clean, dry, intact) Musculoskeletal no cyanosis or clubbing, extremities motor strength 5/5 Skin no rashes, warm and dry Neurologic patellar DTR's 2+ bilat, sensation intact and PERRL, EOMI, accommodation nl, no face palsy, no dysarthria Psychiatric A+Ox3, euthymic affect Lymphatic no cervical or axillary lymphadenopathy Discharge Data Allergies Allergy/AdvReac Type Severity Reaction Status Date / Time orange (food color) Allergy Intermediate Hives Verified 01/13/20 21:20 yellow dye Allergy Intermediate Hives Verified 01/13/20 21:20 aspirin Allergy Mild HIVES Verified 01/13/20 21:20 Consultations 01/13/20 22:43 Consult General Surgery Stat ED Decision to Admit Stat Procedures Performed Operation Date: 01/16/20 09:30 Actual Procedures p Exploratory Laparotomy amd Lysis of Adhesions - Regis Callahan MD, FACS Ordered Studies 01/13/20 21:11 CT abd pelvis IV con only Urgent US abdomen limited Urgent 01/16/20 07:02 FL small bowel follow through Urgent Hospital Course (1) SBO (small bowel obstruction): POD #6 - s/p ex lap with release of SBO and DAVID. Bowel all viable during the procedure and no resection was needed. + stool, becoming more formed today Tolerating regular diet, surgery managing stop fluids day prior to discharge progressing nicely discharge to home with PCP and surgery follow up (2) Acute UTI: 2nd klebsiella. Previously on rocephin; now on cefoxitin for SBO purposes but this will cover UTI as well. repeat urine cx from 01/15 negative. has received about 7 days of IV antibiotics, no further antibiotics needed (3) Diabetes mellitus type 2 in obese: Controlled. Cont novolog correction. Will need to resume lantus soon now that diet is being advanced. monitor for hypoglycemia, no episodes continue home regimen on discharge (4) Hypertension: resume Lisinopril day prior to discharge since ALISIA resolved (5) Dyslipidemia: HOLD atorvastatin for now but can likely resume soon (6) Depression: cont paroxetine (7) Acute kidney injury: Peak Cr 1.5, improved to 1.1, then jumped to 1.5 and 1.6 improved to 0.8 day prior to discharge stop fluids, making adequate urine resumed lisinopril (8) Chronic kidney disease, stage 3a: baseline CrCl 40s bmp in am (9) Morbid obesity with BMI of 40.0-44.9, adult: BMI about 40 Total Time Total Time Spent Total Time Spent (In Minutes): 33 minutes Total Time Includes: Examination of the Patient, Discharge Planning, Medication Reconciliation and Communication With Other Providers (general surgery) Discharge Plan Discharge Items Patient Disposition: Home - Self-Care Reason For Visit: Small bowel obstruction Discharge Diagnosis: Small bowel obstruction, s/p lysis of adhesions Acute kidney injury, resolved Hypertension Condition on Discharge: Good Activity: Per Instructions section Lifting: No more than 10 pounds Bathing Comment: may shower, do not soak in tub Sexual Activity: Wait until after follow-up appointment Exercise/Sports: Wait until after follow-up appointment Driving/Machine Use: Resume 3 days after discharge Weightbearing: Full weightbearing Non-emergency contact: Primary Care Provider and Surgeon Call non-emergency contact if: you have any medication questions, your symptoms worsen, your pain is not controlled and you have a fever Follow-up/Referrals: Kim Handy CRNP [Primary Care Provider] - Kenny Holland MD [Surgeon] - 01/29/20 1:45 pm (Please call to schedule follow up in clinic within 1 week) Diet: Carb Consistent or DM2 and Heart Healthy Addtl Attending Provider Instructions: Medications: no changes Small bowel obstruction, s/p lysis of adhesions post op day 6, doing well, tolerating diet please follow discharge instructions above follow up with general surgery in one week, call for appt for pain, use Tylenol 650mg every 6 hours, can also use Motrin 400mg three times a day, take with food Pending Studies at Discharge: No Stand-Alone Forms: [facility] Smoking Cessation Medications and DC Order Prescriptions: Continued alendronate 70 mg tablet See Rx Instructions .ROUTE .COMPLEX Qty: 4 RF: 11 lisinopril 20 mg tablet 20 mg PO DAILY Qty: 30 RF: 5 (DME) insulin syringe-needle U-100 [BD Insulin Syringe] 1 mL 27 gauge x 1/2" syringe See Rx Instructions .ROUTE .MEDSUPPLY Qty: 100 RF: 5 Trulicity 0.75 mg/0.5 mL pen injector See Rx Instructions .ROUTE .COMPLEX Qty: 2 RF: 7 atorvastatin 80 mg tablet 80 mg PO HS Qty: 90 RF: 3 paroxetine HCl 20 mg tablet 20 mg PO DAILY Qty: 90 RF: 2 ferrous sulfate 325 mg (65 mg iron) Tablet,Delayed Release (Dr/Ec) 325 mg PO QAM Qty: 30 RF: 0 cyanocobalamin (vitamin B-12) [Vitamin B-12] 1,000 mcg Tablet 1,000 mcg PO DAILY RF: 0 Lantus U-100 Insulin 100 unit/mL solution 45 units SQ BID RF: 0 insulin aspart U-100 [Novolog U-100 Insulin aspart] 100 unit/mL solution 10 unit subcut BID RF: 0 metformin 1,000 mg tablet 1,000 mg PO BID RF: 0 gabapentin 100 mg capsule 200 mg PO HS RF: 0 Discharge Orders: Discharge Order (Routine); Ordered 01/22/20 Ordered By: William Devries/Other Patient Handouts: Low-Fiber Diet Admission Data Admit Date/Time: 01/13/20 23:48 Attending Provider: William Appiah Admit Provider: Heidi Smiley Primary Care Provider: Kim Handy. Other Providers: Kenny Holland ; Heidi Smiley Other Interventions: Discharge Summary Assessment (RN) Last Done: 01/22/20 08:28 Coding Level of Care Code D/C Day Management >30 mins Diagnoses SBO (small bowel obstruction) K56.609 Acute UTI N39.0 Diabetes mellitus type 2 in obese E11.69; E66.9 Hypertension I10 Hypertension type: essential hypertension Dyslipidemia E78.5 Depression F32.9 Depression Type: unspecified Acute kidney injury N17.9 Chronic kidney disease, stage 3a N18.31 Morbid obesity with BMI of 40.0-44.9, adult E66.01; Z68.41
[2020-01-22] MEDS: INSULIN ASPART 100 UNITS/ML 3 ML PEN SC SCH (09:07)
== END 2020-01-22 11:19 | disposition home or self-care (01) | DRG 336 ==
LOC: ED 20:30 → SUATTDRO 23:48 → 3N 23:48